=== PATIENT | female | born 1970 | race African-American/Black ===

== ENCOUNTER 2020-08-24 16:10 | Outpatient (REF) | payer MEDICARE, MEDICAID, SELFPAY | END 2020-08-24 16:11 | disposition home or self-care (01) | LOC: HO.HAP 16:10 | PROVIDERS: Visit Provider Internal Medicine | DX: Z46.1 Encounter for fitting and adjustment of hearing aid (principal) | CPT/HCPCS: V5266 ==

== ENCOUNTER 2020-10-07 15:20 | Outpatient (REF) | payer MEDICARE, MEDICAID, SELFPAY | END 2020-10-07 15:21 | disposition home or self-care (01) | LOC: HO.HAP 15:20 | PROVIDERS: Visit Provider Internal Medicine | DX: Z46.1 Encounter for fitting and adjustment of hearing aid (principal); H90.41 Sensorineural hearing loss, unilateral, right ear, with unrestricted hearing on the contralateral side | CPT/HCPCS: 92592 ==

== ENCOUNTER 2021-04-01 10:17 | Outpatient (REF) | payer MEDICARE, MEDICAID, SELFPAY ==
--- NOTE | 2021-04-01 16:18 | MHC.AU.AHA ---
Adult Audiological Evaluation Date of Visit: 04/01/21 Reason for Appointment: Audiological evaluation due to concern for decreased hearing. Ms. Quispe has a known sensorineural hearing loss in her right ear and uses a hearing aid in her right ear. Hearing in her left ear has had normal hearing on past evaluations. She notes that she often feels like people are mumbling, and has a hard time hearing voice on FaceTime. She has been struggling with migraines and her doctor has changed her migraine medications several times to find something that works. [place] [facility] [place] Mild sensorineural hearing loss from 250-2000 Hz, rising to normal hearing 0832-2401 Hz in the right ear. Normal hearing in the left ear. Medical History: Medical History: Dizziness or Unsteadiness, Migraines Medical History: Microcytic anemia, thalassemia, lymphedema, kidney problems, chronic pain Allergies: Patient reports she is allergic to migraine medications Medication List: Topamax, Morphine, Propranolol Hearing Instrument History- Right Ear: Green Energy Marketing Analyst: Rhapso Model: Playmysong [id number] Serial Number: [id number] Battery Size: 312 Repair Warranty: 12/29/2022 Loss and Damage Warranty: 12/29/2022 Dispensed By: [facility] Date of Fittin10/14/2019 Otoscopy: Right Ear: Unremarkable Left Ear: Unremarkable Tympanometry: Tympanometry performed due to: To assess integrity of the middle ear system Right Ear: Normal Middle Ear System (Type A) Left Ear: Normal Middle Ear System (Type A) Hearing Evaluation: Transducer(s) Used: Insert Earphones, Bone Conduction Method: Conventional Audiometry Stimuli Used: Pure Tones Right Ear: Description of Hearing: Mild sensorineural hearing loss from 250-4000 Hz, rising to normal hearing at 8000 Hz. Left Ear: Description of Hearing: Normal hearing from 250-8000 Hz. Speech Recognition Threshold (SRT): Method Used: Monitored Live Voice Stimuli Used: Spondee Words Right Ear: 20 dBHL Left Ear: 5 dBHL Word Discrimination: Method: Recorded Lists Word Lists Used: NU-6 Right Ear: 100% at 60 dBHL Left Ear: 100% at 50 dBHL Comparison: Compared to the most recent evaluation: Hearing is stable. Recommendations: Audiological re-evaluation in one year. Hearing aid maintenance performed today. Hearing aid(s) reprogrammed with updated test results. Diagnosis: Primary Diagnosis: H90.41 SNHL Unilateral Right Ear, W/Unrestricted Contralateral Hearing Services Performed: Comprehensive Audiological Evaluation (CPT 27703) Tympanometry (CPT 39261) Signature: Provider: Colleen Rosales, CCC-A
== END 2021-04-01 10:18 | disposition home or self-care (01) ==
LOC: HO.SH 10:17
PROVIDERS: Visit Provider Internal Medicine
DX: Z46.1 Encounter for fitting and adjustment of hearing aid (principal); H90.41 Sensorineural hearing loss, unilateral, right ear, with unrestricted hearing on the contralateral side
CPT/HCPCS: 92557; 92567; 92592

== ENCOUNTER 2021-11-07 10:24 | Outpatient (REF) | payer MEDICARE, MEDICAID, SELFPAY | END 2021-11-07 10:25 | disposition home or self-care (01) | LOC: HO.HAP 10:24 | PROVIDERS: Visit Provider Internal Medicine | DX: Z46.1 Encounter for fitting and adjustment of hearing aid (principal); H90.41 Sensorineural hearing loss, unilateral, right ear, with unrestricted hearing on the contralateral side | CPT/HCPCS: V5266 ==

== ENCOUNTER 2023-04-18 13:19 | Outpatient (REF) | payer MEDICARE, MEDICAID, SELFPAY | END 2023-04-18 13:20 | disposition home or self-care (01) | LOC: HO.HAP 13:19 | PROVIDERS: Visit Provider Internal Medicine | DX: Z46.1 Encounter for fitting and adjustment of hearing aid (principal); H90.41 Sensorineural hearing loss, unilateral, right ear, with unrestricted hearing on the contralateral side | CPT/HCPCS: 92592; 99499; V5266 ==

== ENCOUNTER 2023-04-18 13:52 | Outpatient (REF) | payer SELFPAY | END 2023-04-18 13:53 | disposition home or self-care (01) | LOC: HO.HAP 13:52 | PROVIDERS: Visit Provider Internal Medicine | DX: Z46.1 Encounter for fitting and adjustment of hearing aid (principal); H90.3 Sensorineural hearing loss, bilateral | CPT/HCPCS: V5267 ==

== ENCOUNTER 2023-05-03 12:45 | Outpatient (REF) | payer MEDICARE, MEDICAID, SELFPAY | END 2023-05-03 12:46 | disposition home or self-care (01) | LOC: HO.HAP 12:45 | PROVIDERS: Visit Provider Internal Medicine | DX: Z46.1 Encounter for fitting and adjustment of hearing aid (principal); H90.3 Sensorineural hearing loss, bilateral | CPT/HCPCS: V5266 ==

== ENCOUNTER 2023-06-07 14:00 | Outpatient (RCR) | payer MEDICARE, MEDICAID, SELFPAY ==
[2023-05-03 11:16] VITALS: BP 116/84
== END 2023-07-25 10:49 | disposition home or self-care (01) ==
LOC: HO.PT 14:00
PROVIDERS: PCP Internal Medicine; Visit Provider Psychiatry & Neurology Neurology
DX: R42 Dizziness and giddiness (principal)
CPT/HCPCS: 95992; 97112; 97162

== ENCOUNTER 2023-09-17 09:13 | Day surgery (SDC) | payer MEDICARE, MEDICAID, SELFPAY ==
--- NOTE | ~2023-09-17 | FL_ITS ---
FLUOROSCOPIC GUIDED LUMBAR PUNCTURE INDICATION: Concern for pseudotumor cerebra Risks and benefits and possible complications were discussed with the patient and the consent form was signed. Patient was placed prone on the fluoroscopy table. The back was prepped and draped in routine sterile fashion. Betadine was used as a skin antiseptic. Utilizing fluoroscopic guidance, the L3-4 interlaminar space was accessed with a 22 gauge Randal spinal needle and clear CSF fluid obtained. Opening pressure was 7 cm H2O in the left lateral decubitus position. 8 cc of fluid was sent for analysis. The needle was removed without immediate complications. Total fluoroscopy time: 0.5 min Solitary spot image obtained. DAP: 388.7 uGycm2. FL/FL guided lumbar puncture LP IMPRESSION: Successful fluoroscopic guided lumbar puncture. Normal opening pressure. This procedure was performed by Gerry Somers PA-C and supervised by Dr. Mesa.
[2023-09-17 10:21] VITALS: BMI 27.2
[2023-09-17 12:30] VITALS: BP 98/75; PULSE 79; RESP 16; TEMP 36.4; O2SAT 100
[2023-09-17 12:57] VITALS: BP 107/67; PULSE 88; RESP 16; O2SAT 100
[2023-09-17 13:15] VITALS: BP 104/63; PULSE 94; RESP 16; TEMP 36.4; O2SAT 100
[2023-09-17 13:36] LABS: CSF Appearance Clear, Colorless; CSF Tube # 2
[2023-09-17 13:48] LABS: Glucose CSF 58 mg/dL; Total Protein CSF 46.9 mg/dL (15-45)
[2023-09-17 14:33] LABS: Lymphocytes CSF 100 %
[2023-09-17 14:34] LABS: Appearance CSF CLEAR; CSF Tube # 4; Color CSF COLORLESS; Red Blood Cell CSF 4 MM*3; White Blood Cell CSF 2 MM*3
== END 2023-09-17 13:30 | disposition home or self-care (01) ==
PROVIDERS: Physician Assistant Surgical; Psychiatry & Neurology Neurology; PCP Internal Medicine; Visit Provider Psychiatry & Neurology Neurology
PROC: 009U3ZZ Drainage of Spinal Canal, Percutaneous Approach (ICD-10-PCS; CPT 62270; principal; 2023-09-17 11:00)
DX: G93.2 Benign intracranial hypertension (principal); H46.9 Unspecified optic neuritis; G43.709 Chronic migraine without aura, not intractable, without status migrainosus; R42 Dizziness and giddiness; M79.7 Fibromyalgia; H53.143 Visual discomfort, bilateral; G62.9 Polyneuropathy, unspecified; I89.0 Lymphedema, not elsewhere classified; G47.33 Obstructive sleep apnea (adult) (pediatric); J45.909 Unspecified asthma, uncomplicated; Z99.89 Dependence on other enabling machines and devices; Z79.899 Other long term (current) drug therapy; Z79.51 Long term (current) use of inhaled steroids; Z88.8 Allergy status to other drugs, medicaments and biological substances; Z88.5 Allergy status to narcotic agent; Z98.84 Bariatric surgery status
CPT/HCPCS: 62328; 82945; 84157; 87015; 87070; 87205; 89051

== ENCOUNTER → 2023-09-17 11:30 | Outpatient (BNV) | payer MEDICARE, MEDICAID, SELFPAY | PROVIDERS: PCP Internal Medicine; Visit Provider Physician Assistant Surgical | DX: G93.2 Benign intracranial hypertension (principal) | CPT/HCPCS: 62328 ==

== ENCOUNTER 2024-03-06 11:04 | Outpatient (REF) | payer MEDICARE, MEDICAID, SELFPAY | END 2024-03-06 11:05 | disposition home or self-care (01) | LOC: HO.HAP 11:04 | PROVIDERS: Visit Provider Internal Medicine | DX: Z46.1 Encounter for fitting and adjustment of hearing aid (principal); H90.41 Sensorineural hearing loss, unilateral, right ear, with unrestricted hearing on the contralateral side | CPT/HCPCS: V5266 ==

== ENCOUNTER 2024-04-22 12:43 | Outpatient (REF) | payer MEDICARE, MEDICAID, SELFPAY ==
--- NOTE | 2024-04-22 14:40 | MHC.AU.HA3 ---
Hearing Instrument Follow-Up- Binaural Date of Visit: 04/22/24 Right Ear: Make, Model, Color, Serial Number: Miesha Stone [id number] SN: [id number] Color: Graphite Wilkinson Spinning Frame Tender Repair Warranty: 12/29/2022 Spinning Frame Tender Loss and Damage Warranty: 12/29/2022 [employer] Service Plan: 10/13/2020 Battery Size: 312 Mason Helper/Slim Tube: 1M Earmold/Dome/CShell/SlimTip:Small open dome with retention tail Type of Wax Guard: Cerushield Dispensed By: [employer] Date of Fittin10/14/2019 Follow-Up Summary: Sil is here for re-evaluation (see report) and hearing aid maintenance. She states her hearing aid does not seem to be working, notes issues with batteries dying daily. Despite reporting she changed her battery yesterday, it tested as . Cleaned aid, changed wax guard and dome, ran through dehumidifier, changed battery. Listening check ok. Advised to try a new pack of batteries, and if issue continues to return to discuss next steps. Recommendations: Recommendations: Patient will call if problems persist. Diagnosis Code(s): Primary Diagnosis: H90.41 SNHL Unilateral Right Ear, W/Unrestricted Contralateral Hearing Signature: Provider: Colleen Nunez, [facility]
--- OUTSIDE RECORDS SUMMARY | 2024-04-23 21:14 | XMS_ITS ---
Author Name [facility] Organization Unknown History of Medication Use Medication Directions Dispensed Refills Start Date End Date Stat loratadine (CLARITIN) 10 MG tablet Take 10 mg by mouth daily. 12/08/2023 active pantoprazole (PROTONIX) 40 MG tablet Take 20 mg by mouth 2 (two) times a day. 12/08/2023 active albuterol (PROVENTIL HFA;VENTOLIN HFA) 108 (90 Base) MCG/ACT inhaler Inhale 1 puff into the lungs every 4 (four) hours as needed for wheezing. 12/08/2023 active buPROPion (WELLBUTRIN XL) 150 MG 24 hr tablet Take 150 mg by mouth daily. 12/08/2023 active Acetaminophen (TYLENOL PO) Take 1,000 mg by mouth daily. 12/08/2023 active oxazepam (SERAX) 15 MG capsule Take 15 mg by mouth 4 (four) times a day. 12/08/2023 active vitamin E 400 UNIT capsule Take 400 Units by mouth 2 (two) times a day. 12/08/2023 active propranolol (INDERAL LA) 80 MG 24 hr capsule Take 80 mg by mouth daily. 12/08/2023 aborted cyanocobalamin (VITAMIN B12) 1000 MCG/ML injection Inject 1,000 mcg into the muscle every 3 (three) months. 12/08/2023 active naloxone (NARCAN) 0.4 MG/ML injection Inject 0.4 mg into the vein as needed. 12/08/2023 active meclizine (ANTIVERT) 25 MG tablet Take 25 mg by mouth 4 (four) times a day as needed. 12/08/2023 active furosemide (LASIX) 20 MG tablet Take 20 mg by mouth 3 (three) times a week. 12/08/2023 active cholecalciferol (VITAMIN D3) 1000 UNITS tablet Take 1,000 Units by mouth 4 (four) times a day. 12/08/2023 active vitamin C (ASCORBIC ACID) 500 MG tablet Take 500 mg by mouth 2 (two) times a day. 12/08/2023 active fluticasone (FLONASE) 50 MCG/ACT nasal spray spray/apply 1 spray in each nostril 2 (two) times a day. 12/08/2023 active Morphine Sulfate ER (MS CONTIN) 30 MG TBCR Take 30 mg by mouth every 4 (four) hours as needed. 12/08/2023 active vitamin A capsule 56366 units Take 10,000 Units by mouth 2 (two) times a day. 12/08/2023 active docusate sodium (COLACE) 100 MG capsule Take 100 mg by mouth 2 (two) times a day. 12/08/2023 active Ubrogepant (Ubrelvy) 50 MG TABS Take 50 mg by mouth 2 (two) times a day as needed. 12/08/2023 active vitamin B-1 (THIAMINE) 100 MG tablet Take 100 mg by mouth 2 (two) times a day. 12/08/2023 active B Complex-Folic Acid (B COMPLEX-VITAMIN B12 PO) Take by mouth 2 (two) times a day. 12/08/2023 active Magnesium Oxide 400 (241.3 Mg) MG TABS tablet Take 250 mg by mouth 2 (two) times a day. 12/08/2023 active spironolactone (ALDACTONE) tablet 25 mg Take 50 mg by mouth daily. 12/08/2023 active buPROPion (WELLBUTRIN XL) 300 MG 24 hr tablet Take 300 mg by mouth daily. 12/08/2023 active EPINEPHRINE IJ Inject 0.3 Units as directed. 12/08/2023 active topiramate (TOPAMAX) 25 MG tablet Take 2 tablets (50 mg total) by mouth 2 (two) times a day for 7 days, THEN 1 tablet (25 mg total) 2 (two) times a day for 7 days, THEN 1 tablet (25 mg total) daily for 7 days. 12/08/2023 active ipratropium-albuterol (DUO-NEB) 0.5-2.5 mg/mL nebulizer Inhale 3 mL into the lungs. 12/08/2023 active Problems Problem Status Onset Date Problem Type Date of Resolution Source Vitamin D deficiency, unspecified active EncounterDiagnosisAct CTTHNE MG Migraines active EncounterDiagnosisAct CTTHNEMG Anemia active 2016-11-13 ProblemAct CTTHNEMG
--- OUTSIDE RECORDS SUMMARY | 2024-04-23 21:14 | XMS_ITS | Continuity of Care Document ---
Author Organization [facility] [address] [place] [address] Phone [phone] Care Team Providers Care Superintendent Drilling And Production Name Role Phone Kala López M.D. Care Team Information Rec eiver [phone] Problems Active Problems Provider Date Non-toxic multinodular goiter Kala man M.D. Onset: 07/26/2022 Osteoporosis Kala Branch M.D. Ons et: 07/26/2022 Hyperparathyroidism Kala Branch M.D. Onset: 07/26/2022 Migraine Kala Branch M.D. Ons et: 07/26/2022 Essential hypertension Jesus Forte Onset: 07/26/2022 Osteoarthritis Kala Branch M.D. Ons et: 07/26/2022 Obstructive sleep apnea syndrome Kala Uribe M.D. Onset: 07/26/2022 Asthma Kala Branch M.D. Ons et: 07/26/2022 Chronic anemia Kala Branch M.D. Ons et: 07/26/2022 Thalassemia Kala Branch M.D. Ons et: 07/26/2022 Pulmonary embolism Kala Branch M.D. Onset: 07/26/2022 Vertigo Kala Branch M.D. Ons et: 07/26/2022 Obesity Kala Branch M.D. Ons et: 07/26/2022 Spinal stenosis of lumbar region Kala Uribe M.D. Onset: 07/26/2022 Clostridium difficile colitis Kala man M.D. Onset: 07/26/2022 Acquired lymphedema of lower extremity Kala Branch M.D. Onset: 07/26/2022 Cobalamin deficiency Donnell Forte Onset: 07/26/2022 Gastroesophageal reflux disease Kala Rose M.D. 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 Work Status Disabled ETOH Use Rarely consumes alcohol Tobacco Use Start: Unknown Patient has never smoked Allergies and adverse reactions Active Allergies Criticality Reaction Severity Comments Date Aspirin Unable to assess criticality 07/26/2022 Penicillin Unable to assess criticality 07/26/2022 Motrin Unable to assess criticality 07/26/2022 Heparin Unable to assess criticality 07/26/2022 Percocet Unable to assess criticality 07/26/2022 Lidocaine Unable to assess criticality 07/26/2022 Iron Dextran Unable to assess criticality 07/26/2022 Bactrim Unable to assess criticality 07/26/2022 Zofran Unable to assess criticality 07/26/2022 Scopolamine Unable to assess criticality 07/26/2022 Dilaudid Unable to assess criticality 07/26/2022 Marinol Unable to assess criticality 07/26/2022 Lyrica Unable to assess criticality 07/26/2022 Klonopin Unable to assess criticality 07/26/2022 Lamictal Unable to assess criticality 07/26/2022 Neosporin Unable to assess criticality 07/26/2022 Librium Unable to assess criticality 07/26/2022 Cymbalta Unable to assess criticality 07/26/2022 Elavil Unable to assess criticality 07/26/2022 Latex Unable to assess criticality 07/26/2022 Asmanex Unable to assess criticality 07/26/2022 Vioxx Unable to assess criticality 07/26/2022 Anbesol Unable to assess criticality 07/26/2022 Nortriptyline Unable to assess criticality 07/26/2022 Medications Active Medications SIG Qnty Indications Order ing Provider Date Ipratropium Bromide0.03% Solution 1 spray each nostril three times a day 1ml Kala Branch M.D. 07/26/2022 Tylenol Extra [id number] Tablets 2 by mouth twice daily as needed Unknown Mrtaienhau06mm Tablets DR take twice daily Unknown Vitamin L951jze (1000 Ut) Capsules 4 by mouth every day 100caps Kala Branch M.D. Calcium Citrate Chewy Cahy626-95.5mg-mcg Chewtabs 1 by mouth twice a day Kala Branch M.D. Vitamin C500mg Tablets 1 by mouth 3 times daily Unknown Iijozvjy03pq Capsules 1 bid Unknown Ulsz597(50Zn) mg Capsules 1 qd Unknown Lidocaine-Prilocaine2. 5-2.5% Cream prn Unknown Hair Skin And Nails FormulaTablets 1 by mouth every day Unknown Nxqdcmili956ua Tablets 1 by mouth twice daily Unknown Betamethasone Dipropionate0.05% Cream apply twice daily to affected area as needed Unknown Rozdihrbcz341cp Tablets Take 1 tablet 2 times daily Unknown Duloxetine MFN69hn Caps Part take 1 capsule by mouth twice daily Unknown Duloxetine NQT24km Caps Part Take 1 by mouth every day Unknown Ptddf67310-67154Uyfc Caps DR Umanzor Take 2 capsules by mouth four times daily Unknown Ventolin OSZ087(90Base) mcg/Act Aerosol Use as directed every 4 to 6 hours Kala López M.D. Azelastine HCL (Nasal)0.1% Solution 1 spray to each nostril twice daily Carol Mayberry MD Fluticasone Ztmamfletl59ysx/Act Suspension Two sprays to each nostril twice daily Kala López M.D. Meclizine SDJ90lw Tablets Take 1 tablet four times daily Unknown Betamethasone Valerate0.1% Cream Use daily up to four times Kala López M.D. Hutqszwja63-3.5mcg/Act Aerosol 2 puffs twice daily Kala López M.D. Vital Signs Date Vital Result Comment 07/31/2023 9:04am BP Systolic 100 mmHg BP Diastolic 70 mmHg Heart Rate 96 /min Height 62.5 inches 5'2.50 Weight 150.38 lb BMI (Body Mass Index) 27.1 kg/m2 Results Test Acquired Date Facility Test Result H/L Range Note Creatinine 07/31/2023 [facility] Creatinine 0.71 mg/dL 0.57-1.00 eGFR 101 mL/min/1.73 >59 Laboratory test finding 07/31/2023 [facility] Calcium 9.7 mg/dL 8.7-10.2 Albumin 4.2 g/dL 3.8-4.9 N-Telopeptide, Urine 07/31/2023 [facility] N-Telopeptide 2092 nmolBCE Not Estab. Creatinine, Urine 129.2 mg/dL Not Estab. N-Telo/Creat. Ratio 183 nMBCE/mMCr High 0-89 Interpretive Guide: See Comment: 1 Laboratory test finding 08/14/2022 [facility] PTH, Intact 72 pg/mL High (15-65) Calcium 9.6 mg/dL (8.6-10.5 ) Albumin 4.6 GM/DL (3.4-4.8) TSH 1.10 uIU/mL (0.4-4.2) 25Oh Vitamin D 65.3 NG/ML High (20-50 ) Laboratory test finding 07/26/2022 [facility] TSH With Reflex To FT4 1.50 uIU/mL (0.4-4.2) PTH, Intact 44 pg/mL (15-65) Calcium 9.8 mg/dL (8.6-10.5 ) 25Oh Vitamin D 60.2 NG/ML High (20-50 ) Albumin 4.3 GM/DL (3.4-4.8) Laboratory test finding 04/13/2022 [facility] TSH <pending> Calcium <pending> Albumin <pending> PTH, Intact <pending> 25Oh Vitamin D <pending> 1 The N-telopeptide an d Creatinine are used to calculate the N-telo/Creat. Ratio which is referred to as NTx . Suggested guidelines for the clinical use of NTx are as follows: 1. Menopausal Women not on Hormone Replacement Therapy (HRT): Women with a baseline NTx value >38 are at significant risk for a decrease in bone mineral density (BMD) after 1 year compared to women on HRT. The probability of a decline in BMD increases with NTx value as follows: (1): Baseline NTx Probability of Decrease in BMD 18- 38 1.4 p=0.28 38- 51 2.5 p=0.03 51- 67 3.8 p=0.0006 67-188 17.3 p=0.0001 2. Menopausal Women Receiving Antiresorptive Therapy: The probability that treatment is effective after three months is increased when the measured NTx value is <or=38 nM BCE/mM ART CLASS MODEL, or NTx has decreased >or=30% from baseline.[1] 3. Patients with Paget's Disease of Bone: The probability that treatment is effective after one month is increased when the measured NTx value is within the reference range, or NTx has decreased >or=30% from baseline.[2] 1. Oanh CH, Quintanilla NH, Rocky GS, et al. Am J Med, 102:29-37,1997. (1):M757, 1996. 2. Bone H, Krysten Centeno, et al. J Bone Min Res.11(1):M757,1996 Procedures Date Code Description Status 07/31/2023 40292 Collection Of Venous Blood B y Venipuncture Completed 07/26/2022 21862 Collection Of Venous Blood B y Venipuncture Completed Medical Devices Description No Information Available Encounters Type Date Location Provider Dx Diagnosis Office Visit 07/31/2023 9:00a Main Office Kala Branch M.D. E04.2 Nontoxic multinodular goiter E21.3 Hyperparathyroidism, unspecified M81.0 Age-related osteopor osis w/o current pathological fracture Assessments Date Code Description Provider 07/31/2023 E04.2 Nontoxic multinodular goiter Kala Branch M.D. 07/31/2023 E21.3 Hyperparathyroidism, unspeci fied Kala Branch M.D. 07/31/2023 M81.0 Age-related oste oporosis without current pathological fracture Kala Branch M.D. Plan of Treatment No Information Available Functional Status Description No Information Available Mental Status Description No Information Available Referrals Description No Information Available
== END 2024-04-22 12:44 | disposition home or self-care (01) ==
LOC: HO.SH 12:43
PROVIDERS: Visit Provider Internal Medicine
DX: Z01.118 Encounter for examination of ears and hearing with other abnormal findings (principal); H90.41 Sensorineural hearing loss, unilateral, right ear, with unrestricted hearing on the contralateral side
CPT/HCPCS: 92552; 92556; 92567; 92592; 99499

== ENCOUNTER 2024-08-26 15:07 | Outpatient (REF) | payer MEDICARE, MEDICAID, SELFPAY ==
--- OUTSIDE RECORDS SUMMARY | 2024-08-26 18:26 | XMS_ITS ---
Author Organization [facility] Care Team Providers Care Machining Supervisor Name Role Phone Jenifer Otero Unavailable Unavailable Michelle Sanders Unavailable Unavailable Tres Mishra Unavailable Unavailable Silke Pan Unavailable Unavailable Ella Linares Unavailable Unavailable Allergies and adverse reactions Code CodeSystem Substance Reaction Severity StartDate Concern Status Vioxx Moderate 02/04/2016 active Singulair Anaphylaxis (code- 04581988, SNOMED CT) Severe 02/04/2016 active 9601 RXNORM Scopolamine Unknown 01/18/2016 active Percogesic Lung finding (code- 287275543, SNOMED CT) Severe 02/04/2016 active 7984 RXNORM Penicillin Mild 02/04/2016 active 7531 RXNORM Nortriptyline Unknown 01/18/2016 active NEOSPORIN TOPICA L OINTMENT Unknown 01/18/2016 active Motrin Unknown 01/18/2016 active Marinol Unknown 01/18/2016 active Lyrica Unknown 01/18/2016 active 6387 RXNORM Lidocaine Unknown 01/18/2016 active Librium Mild 02/04/2016 active Lamictal Lung finding (code- 520650839, SNOMED CT) Moderate 02/04/2016 active Klonopin Moderate 02/04/2016 active 5992 RXNORM Iron Dextran Unknown 01/18/2016 active 304569 RXNORM Heparin Unknown 01/18/2016 active Cymbalta Unknown 01/18/2016 active Bactrim Unknown 01/18/2016 active 1191 RXNORM Aspirin Unknown 01/18/2016 active ASMANEX TWISTHALER Unknown 01/18/2016 ac tive ANBESOL LIQUID Unknown 01/18/2016 active Care Team Name Role Address Phone Organization Dates Tres Mishra PCP [address], [place], [address], [facility] (Office): [facility] 01/18/2016 - 05/29/2017 Jenifer Otero Attending Physician [address] [place] [address], [facility] (Office): [facility] 01/18/2016 - 05/29/2017 Michelle Sanders Attending Physician [address] [place] [address], [id number], [facility] (Office): [facility] 01/18/2016 - 05/29/2017 Silke Pan Attending Physician [address] [place] [address], [id number], [facility] (Office): [facility] 01/18/2016 - 05/29/2017 Ella Linares Attending Physician [address] [place] [address], [id number], [facility] (Office): [facility] 01/18/2016 - 05/29/2017 Immunizations Immunization Status Vaccine Details Vaccine Code CodeSystem Date Notes Influenza completed Influenza, split virus, trivalent, injectable, contains preservative lotNumber: [id number] expiry: 11/10/2017 Mfg: Seqirus Given 0.5 ml Left Deltoid intramuscularly 141 CVX created date: 7 consent date: 7 administe red date: 7 Educated by Juan Manuel Mora LPN on 03/17/2017 Influenza completed Influenza, split virus, trivalent, injectable, contains preservative lotNumber: [id number] expiry: 10/11/2016 Mfg: Seqirus Given 0.5 ml Left Deltoid intramuscularly 141 CVX created date: 6 consent date: 6 administe red date: 6 Educated by [email or web address] on 03/02/2016 Pneumococcal Polysaccharide Vaccine (PPSV23) completed pneumococcal polysaccharide vaccine, 23 valent 33 CVX created date: 6 administe red date: 5 Educated by dbarrows on 05/02/2016 had LOSS PREVENTION CONSULTANT Mental Status Section Date Assessment Total Score Description 05/29/2017 BIMS 15 cognitively int act CAM 0 No delirium ind icated PHQ-9 00 03/21/2017 BIMS 15 cognitively int act CAM 0 No delirium ind icated PHQ-9 00 Problems Problem # Description Date of onset Resolved Date Code CodeSystem Concern Status 1 LOW BACK PAIN 02/20/[address] act vero 2 RADICULOPATHY, CERVICAL REGION 02/20/[address] active 3 OTHER INJURY OF MUSCLE(S) AND TENDON(S) OF THE ROTATOR CUFF OF LEFT SHOULDER, SEQUELA 02/15/[address] active 4 PAIN IN LEFT SHOULDER 01/02/[address] active 5 PAIN IN LEFT HAND 09/23/[address] active 6 ENCOUNTER FOR SURGICAL AFTERCARE FOLLOWING SURGERY ON THE DIGESTIVE SYSTEM 09/22/2016 03/14/[address] completed 7 OTHER SPECIFIED POSTPROCEDURAL STATES 09/22/2016 03/14/[address] completed 8 PERSONAL HISTORY OF OTHER DISEASES OF THE DIGESTIVE SYSTEM 09/22/[address] active 9 MUSCLE WEAKNESS (GENERALIZED) 07/30/[address] active 10 GASTRO-ESOPHAGEAL REFLUX DISEASE WITH ESOPHAGITIS 06/09/2016 03/14/[address] completed 11 ADULT FAILURE TO THRIVE 01/18/2016 03/14/[address] completed 12 ANXIETY DISORDER, UNSPECIFIED 01/18/[address] active 13 COGNITIVE COMMUNICATION DEFICIT 01/18/[address] active 14 DIFFICULTY IN WALKING, NOT ELSEWHERE CLASSIFIED 01/18/[address] active 15 DYSPHAGIA, ORAL PHASE 01/18/[address] active 16 HISTORY OF FALLING 01/18/[address] active 17 MAJOR DEPRESSIVE DISORDER, SINGLE EPISODE, UNSPECIFIED 01/18/[address] active 18 NAUSEA WITH VOMITING, UNSPECIFIED 01/18/2016 03/14/[address] completed 19 OTHER CHRONIC PAIN 01/18/[address] active 20 OTHER LACK OF COORDINATION 01/18/[address] active 21 OTHER MALAISE 01/18/[address] act vero 22 PAIN IN LEFT LEG 01/18/[address] active 23 RADICULOPATHY, LUMBOSACRAL REGION 01/18/[address] active 24 UNSPECIFIED ABDOMINAL PAIN 01/18/[address] active 25 UNSPECIFIED ASTHMA, UNCOMPLICATED 01/18/[address] active 26 UNSPECIFIED SEVERE PROTEIN-CALORIE MALNUTRITION 01/18/2016 03/14/[address] completed Reason for Referral No Reasons for Referral Entered Social History Social History Observation Description Start Date End Date Code Code System Current Smoking Status Tobacco smoking consumption unknown 804958839 SNOMED CT Sex Assigned At Female 1970 55162-[address] [facility] Vital Signs Code Code System Vitals Name Values and Units Timing Information 14986-[address] [facility] Weight Mrbtu=801.9 Units=Lbs 09/2017 8302-[address] [facility] Height Value=62.0 Units=Inches 03/28/2017 9279-[address] [facility] Respiratory Rate Value=18.0 Units=/m in 01/31/2017 8462-[address] [facility] Blood Pressure-Diastolic Value=72 Un its=mmHg 01/31/2017 8480-[address] [facility] Blood Pressure-Systolic Qzjaf=621 Un its=mmHg 01/31/2017 8310-[address] [facility] Body Temperature Value=96.8 Units=?? F 01/31/2017 8867-[address] [facility] Heart rate Value=78.0 Units=/min 62807-[address] [facility] O2 % BldC Oximetry Value=96.0 Units= % 01/31/2017 24728-[address] [facility] Pain Level Value=4.0 10/03/2016
--- OUTSIDE RECORDS SUMMARY | 2024-08-26 18:26 | XMS_ITS | Clinical Summary ---
Author Organization [facility] Address [address] [place] [address] Care Team Providers Care Tours Captain Name Role Phone Kala López MD Primary Care Provider [phone] Allergies Active Allergy Reactions Criticality Noted Date Comments Aspirin 11/06/2016 Sulfamethoxazole-Trimethoprim 2016 Clonazepam 11/06/2016 Duloxetine Hcl 11/06/2016 Lidocaine 11/06/2016 Diphenoxylate 11/06/2016 Pregabalin 11/06/2016 Ibuprofen 11/06/2016 Benzalkonium Chloride 11/06/2016 Nortriptyline 11/06/2016 Penicillins 11/06/2016 Oxycodone-Acetaminophen 11/06/2016 Scopolamine 11/06/2016 Montelukast 11/06/2016 Rofecoxib 11/06/2016 Medications Medication Sig Dispensed Refills Start Date End Date Status Morphine Sulfate ER (MS CONTIN) 30 MG TBCR Take 30 mg by mouth every 4 (four) hours as needed. 0 Active spironolactone (ALDACTONE) tablet 25 mg Take 50 mg by mouth daily. 0 Active pantoprazole (PROTONIX) 40 MG tabletIndications:DR tablet Take 20 mg by mouth 2 (two) times a day. 0 Active Acetaminophen (TYLENOL PO) Take 1,000 mg by mouth daily. 0 Active oxazepam (SERAX) 15 MG capsule Take 15 mg by mouth 4 (four) times a day. 0 Active FOLIC ACID PO Take by mouth 2 (two) times a day. 0 Active cholecalciferol (VITAMIN D3) 1000 UNITS tablet Take 1,000 Units by mouth 4 (four) times a day. 0 Active Minxbxb-Xajyppzrg-Idr munson D (CALCIUM 500 PO) Take by mouth. 0 Active docusate sodium (COLACE) 100 MG capsule Take 100 mg by mouth 2 (two) times a day. 0 Active ipratropium-albuterol (DUO-NEB) 0.5-2.5 mg/mL nebulizer Inhale 3 mL into the lungs. 0 Active cyanocobalamin (VITAMIN B12) 1000 MCG/ML injection Inject 1,000 mcg into the muscle every 3 (three) months. 0 Active meclizine (ANTIVERT) 25 MG tablet Take 25 mg by mouth 4 (four) times a day as needed. 0 Active vitamin A capsule 11221 units Take 10,000 Units by mouth 2 (two) times a day. 0 Active vitamin B-1 (THIAMINE) 100 MG tablet Take 100 mg by mouth 2 (two) times a day. 0 Active vitamin E 400 UNIT capsule Take 400 Units by mouth 2 (two) times a day. 0 Active EPINEPHRINE IJ Inject 0.3 Units as directed. 0 Active Magnesium Oxide 400 (241.3 Mg) MG TABS tablet Take 250 mg by mouth 2 (two) times a day. 0 Active B Complex-Folic Acid (B COMPLEX-VITAMIN B12 PO) Take by mouth 2 (two) times a day. 0 Active loratadine (CLARITIN) 10 MG tablet Take 10 mg by mouth daily. 0 Active fluticasone (FLONASE) 50 MCG/ACT nasal spray spray/apply 1 spray in each nostril 2 (two) times a day. 0 Active Pediatric Multi Vit-Extra C-FA (CENTRUM JR/EXTRA C PO) Take by mouth 2 (two) times a day. 0 Active furosemide (LASIX) 20 MG tablet Take 20 mg by mouth 3 (three) times a week. 0 Active albuterol (PROVENTIL HFA;VENTOLIN HFA) 108 (90 Base) MCG/ACT inhaler Inhale 1 puff into the lungs every 4 (four) hours as needed for wheezing. 0 Active naloxone (NARCAN) 0.4 MG/ML injection Inject 0.4 mg into the vein as needed. 0 Active Probiotic Product (PROBIOTIC DAILY PO) Take by mouth 4 (four) times a day. 0 Active Nutritional Supplements (ENSURE HIGH PROTEIN) LIQD Take by mouth 3 (three) times a day. 0 Active Ubrogepant (Ubrelvy) 50 MG TABS Take 50 mg by mouth 2 (two) times a day as needed. 16 tablet 3 12/03/2023 Active galcanezumab-gnlm (Emgality) 120 MG/ML injection Inject 1 mL (120 mg total) under the skin every 30 (thirty) days. 1 mL 3 01/03/2024 Active azelastine (ASTELIN) 0.1 % nasal spray 0 01/19/2024 Active betamethasone valerate (VALISONE) 0.1 % cream 0 01/19/2024 Active Symbicort 80-4.5 MCG/ACT inhaler 0 01/19/2024 Active cetirizine (ZyrTEC) 10 MG tablet Take 1 tablet (10 mg total) by mouth. 0 02/05/2018 Active diphenoxylate-atropin e (Lomotil) 2.5-0.025 MG per tablet Take by mouth. 0 07/17/2023 Active DULoxetine (CYMBALTA) DR capsule 20 mg 0 01/19/2024 Active DULoxetine (CYMBALTA) DR capsule 60 mg 0 01/19/2024 Active Multiple Vitamins-Minerals (Hair Skin and Nails Formula) TABS Take by mouth. 0 Active timolol (TIMOPTIC) 0.5 % ophthalmic solution 0 12/05/2023 Active baclofen (LIORESAL) 10 MG tablet 1-2 tablets at night 60 tablet 3 02/07/2024 Active Active Problems Problem Noted Date Diagnosed Date Anemia 11/13/2016 Family History Medical History Relation Name Comments Cancer Cousin Multiple sclerosis Mother Multiple sclerosis Sister Relation Name Status Comments Cousin Mother Sister Social History Tobacco Use Types Packs/Day Years Used Date Smoking Tobacco: Never Smokeless Tobacco: Never Tobacco Cessation:Counseling Given: Not Answered Alcohol Use Standard Drinks/Week Comments No 0 (1 standard drink = 0.6 oz pur e alcohol) occasionally Sex and Gender Information Value Date Recorded Sex Assigned at Not on file Gender Identity Not on file Sexual Orientation Not on file Job Start Date Occupation Industry Not on file Not on file Not on file Last Filed Vital Signs Vital Sign Reading Time Taken Comments Blood Pressure 116/76 02/07/2024 10:40 AM EDT Pulse 93 02/07/2024 10:40 AM EDT Temperature 36.1 ??C (97 ??F) 02/07/2024 10:40 AM EDT Respiratory Rate - - Oxygen Saturation 100% 01/03/2024 8:18 AM EDT Inhaled Oxygen Concentration - - Weight 73 kg (161 lb) 01/03/2024 8:18 AM EDT Height 157.5 cm (5' 2 ) 01/03/2024 8:18 AM EDT Body Mass Index 29.45 01/03/2024 8:18 AM EDT Plan of Treatment Health Maintenance Due Date Last Done Comments Hepatitis B Vaccines (1 of 3 - 3-dose series) 1969 Hepatitis C Screening 1969 Depression Screening 1981 BMI Counseling 1987 Preventative Health Evaluation 1987 Cervical Cancer Screening (Pap Smear) 1990 Colon Cancer Screening (Colonoscopy) 2014 Breast Cancer Screening (Mammogram) 2019 Shingrix-Zoster Vaccine (1 of 2) 2019 COVID-19 Vaccine ( season) 2024 10/25/2021, 07/29/2020, 07/08/2020 Influenza Vaccine (#1) 2024 , 03/01/2021, 03/27/2019, Additional history exists DTap / Tdap / Td (3 - Td or Tdap) 09/28/2025 09/29/2015, 04/16/2007 Pneumococcal Vaccine Aged Out 12/31/2015, 02/11/2015, 02/11/2015, Additional history exists No longer eligible based on patient's age to complete this topic RSV Ped < 20 months Aged Out No longe r eligible based on patient's age to complete this topic Care Teams Tours Captain Relationship Specialty Start Date End Date Kala López MD [address] [place] [address] PCP - General Internal Medicine 11/04/16
--- OUTSIDE RECORDS SUMMARY | 2024-08-26 18:26 | XMS_ITS | Clinical Summary ---
Author Organization [address] [facility] Address [address] [place] [address] Phone Care Team Providers Care Senior Operations Analyst Name Role Phone Kala López MD Primary Care Provider [phone]- [phone] Allergies Active Allergy Reactions Criticality Noted Date Comments Alum-Mag Hydroxide-Simeth Rash 05/15/2024 Amitriptyline Unknown 05/15/2024 Aspirin Anaphylaxis High 03/18/2010 Benzalkonium Chloride 11/06/2016 Benzocaine-Phenol Swelling 01/11/2011 JAW AND TONGUE SWELLING Camphor-Menthol Skin Problems,Other 08/14/2022 Clonazepam Other,Swelling Medium 01/28/2010 FACIAL DROP-SLURRED SPEECH Diphenoxylate 11/06/2016 Doxycycline 08/13/2023 Dronabinol Amnesia,Other 08/17/2014 Other Reaction(s): slurred speech Memory loss Duloxetine Other 01/18/2016 Duloxetine Hcl 11/06/2016 Heparin Anaphylaxis,Blood Issues High 01/28/2010 RAPID IRREG HEARTBEAT Hydromorphone 08/14/2022 Other Reaction(s): trigemy brigrmy episodes Other reaction(s): trigemy brigrmy episodes Ibuprofen Hives,Other 01/18/2016 Iron Dextran Anaphylaxis High 01/28/2010 Other Reaction(s): coded x3 HEART ??STOPPED ??X ??2 Lamotrigine Shortness of breath,Other,Unknow n High 01/28/2010 SLURR SPEECH Other reaction(s): Pulmonary reactions Other Reaction(s): Pulmonary reactions Latex Hives,Other 03/18/2010 Chlordiazepoxide Hcl 05/15/2024 Lidocaine 01/28/2010 ANAPHALAX SHOCK SM RASH Maalox Max Quick Dissolve 05/15/2024 Montelukast Anaphylaxis,Pain,Ot her,Speech Problem High 01/28/2010 CHEST DISCOMFORT Neomycin-Polymyxin B Gu Rash 12/06/2012 Nortriptyline 07/27/2010 Causes chest pain Ondansetron 08/14/2022 Other Reaction(s): trigemy brigemy episodes Other reaction(s): trigemy brigemy episodes Ondansetron Hcl 05/15/2024 Oxycodone-Acetaminophen Hives 01/28/2010 Penicillins Hives 01/28/2010 THROAT CLOSING Pregabalin 01/28/2010 THROAT SWELLING Rofecoxib Rash,Hives Medium 01/28/2010 Scopolamine Other 03/18/2010 Facial pain and stroke like symptoms Sulfamethoxazole-Trimetho prim Hives,Other 01/28/2010 STOMACH ??PAIN ??DIARRHEA Other reaction(s): hives Medications ACETAMINOPHEN ORAL Take 1,000 mg by mouth daily. Active albuterol HFA (PROAIR HFA ; PROVENTIL HFA ; VENTOLIN HFA) 90 mcg/actuation inhaler Inhale 1 puff into the lungs every 4 (four) hours as needed for wheezing. Active vitamin B complex (B COMPLEX-VITAMIN B12 ORAL) Take by mouth 2 (two) times a day. Active calcium carbonate (CALCIUM 500 ORAL) Take by mouth. Activ e cholecalciferol (VITAMIN D-3) 25 mcg (1,000 unit) tablet Take 1,000 Units by mouth 4 (four) times a day. Active cyanocobalamin (VITAMIN B-12) 1,000 mcg/mL injection Inject 1,000 mcg into the muscle every 3 (three) months. Active docusate sodium (COLACE) 100 mg capsule Take 100 mg by mouth 2 (two) times a day. Active EPINEPHRINE INJ Inject 0.3 Units as directed. Active fluticasone propionate (FLONASE) 50 mcg/actuation nasal spray spray/apply 1 spray in each nostril 2 (two) times a day. Active FOLIC ACID ORAL Take by mouth 2 (two) times a day. Active furosemide (LASIX) 20 mg tablet Take 20 mg by mouth 3 (three) times a week. 6 Active ipratropium-albu teroL (DUONEB) 0.5-2.5 mg/3 mL nebulizer solution Inhale 3 mL into the lungs. Active magnesium oxide (MagOx) 400 mg (241.3 elemental magnesium) tablet Take 250 mg by mouth 2 (two) times a day. Active naloxone 0.4 mg/mL injection Inject 0.4 mg into the vein as needed. Active nutren 2.0 liquid Take by mouth 3 (three) times a day. Active oxazepam (SERAX) 15 mg capsule Take 15 mg by mouth 4 (four) times a day. Active Lactobacillus acidophilus (PROBIOTIC ORAL) Take by mouth 4 (four) times a day. Active ubrogepant (UBRELVY) 50 mg tablet Take 50 mg by mouth 2 (two) times a day as needed Active vitamin A 3,000 mcg (10,000 unit) capsule Take 10,000 Units by mouth 2 (two) times a day. Active thiamine 100 mg tablet Take 100 mg by mouth 2 (two) times a day. Active ascorbic acid (VITAMIN C) 500 mg tablet Take 500 mg by mouth 2 times daily. Active VITAMIN E-400 ORAL Take 400 Units by mouth 2 (two) times a day. Active meclizine (ANTIVERT) 25 mg tablet Take 1 tablet (25 mg total) by mouth 1 (one) time each day if needed for dizziness. 20 tablet 3 4 Active DULoxetine (CYMBALTA) [address] capsule 4 Active DULoxetine (CYMBALTA) [address] capsule Take by mouth. Acti ve Creon 24,000-76,000 -120,000 unit capsule Take by mouth. Activ e omeprazole (PRILOSEC) 20 mg tablet,delayed release (DR/EC) Take by mouth. Active timoloL (BETIMOL) 0.25 % ophthalmic solution 1-2 drops 2 (two) times a day. Active betamethasone, augmented, (DIPROLENE-AF) 0.05 % cream Apply topically 2 (two) times a day. Active multivitamin with minerals tablet Take 1 tablet by mouth 1 (one) time each day. Active comp.stocking,th igh,long,large misc Active galcanezumab-gnl m (Emgality Pen) 120 mg/mL injection pen ADMINISTER 1 ML(120 MG) UNDER THE SKIN EVERY 30 DAYS 1 mL 3 5 Active tiZANidine (ZANAFLEX) 2 mg tablet 1 po bid 180 tablet 1 5 Active Active Problems Problem Noted Date Diagnosed Date Anemia 11/13/2016 Encounters Date Type Department Care Team Description 07/04/2024 3:00 PM EST Office Visit [facility] [address] [address] Rain Dyer PA Migraine without aura and without status migrainosus, not intractable (Primary Dx) 06/24/2024 Telephone [facility] [address] [address] Rain Dyer PA 06/12/2024 Telephone [facility] [address] [address] Rain Dyer PA from Last 3 Months Immunizations Name Administration Dates Next Due [employer] SARS-CoV-2 COVID-19, mRNA, LNP-S, preservative free 10/25/2021,07/29/2020,07/08/2020 Surgical History Surgery Date Site/Laterality Comments GASTRIC BYPASS PROCEDURE:GASTRIC BYPASS ABDOMINAL ADHESION SURGERY PROCEDURE:ABDOMINAL ADHESION SURGERY Medical History Medical History Date Comments Anemia DX:Anemia GERD (gastroesophageal reflux disease) DX:GERD (gastroesophageal reflux disease) Asthma DX:Asthma 'Rchwy-mbq-qslso' wit h signs of malnutrition DX:'Lxtys-txm-talgp' with signs of malnutrition Osteoarthritis DX:Osteoarthriti s Lymphedema of leg DX:Lymphedema of leg Carpal tunnel syndrome of left wrist DX:Carpal tunnel syndrome of left wrist Polyneuropathy Family History Medical History Relation Name Comments Cancer Cousin Multiple sclerosis Mother Multiple sclerosis Sister Relation Name Status Comments Cousin Mother Sister Social History Tobacco Use Types Packs/Day Years Used Date Smoking Tobacco: Never Smokeless Tobacco: Never Tobacco Cessation:Counseling Given: Not Answered Alcohol Use Standard Drinks/Week Comments No 0 (1 standard drink = 0.6 oz pur e alcohol) Comments Unknown Sex and Gender Information Value Date Recorded Sex Assigned at Female 03/25/2024 10:12 AM EST Legal Sex Female 12:17 PM EST Gender Identity Female 03/25/2024 10:12 AM EST Sexual Orientation Choose not to disclose 2023 10:12 AM EST Obstetrics History Last Filed Vital Signs Vital Sign Reading Time Taken Comments Blood Pressure 141/98 07/04/2024 2:57 PM EST Pulse 80 07/04/2024 2:57 PM EST Temperature 36.7 ??C (98.1 ??F) 07/04/2024 2:57 PM ES T Respiratory Rate 20 03/25/2024 11:26 AM EST Oxygen Saturation 93% 07/04/2024 2:57 PM EST Inhaled Oxygen Concentration - - Weight 86.2 kg (190 lb) 07/04/2024 2:57 PM EST Height 160 cm (5' 3 ) 07/04/2024 2:57 PM EST Body Mass Index 33.66 07/04/2024 2:57 PM EST Plan of Treatment Upcoming Encounters Date Type Department Care Team (Late st Contact Info) Description 01/02/2025 11:30 AM EDT Office Visit [facility] [address] [place] [address] Christine Escobar MD [address] [facility] [address] [place] [phone] Health Maintenance Due Date Last Done Comments Breast Cancer Screening 1969 Hepatitis B Vaccines (1 of 3 - 19+ 3-dose series) 1988 Cervical Cancer Screening: Pap Smear 1990 Zoster Vaccines (1 of 2) 2019 Cholesterol Screening (Lipid Panel) 06/12/2023 Colorectal Cancer Screening: Colonoscopy 06/12/2023 Depression Screening 06/12/2023 HIV Screening 06/12/2023 Hepatitis C Screening 06/12/2023 Medicare Annual Wellness Visit 06/12/2023 Osteoporosis Screening (Bone Density Screening) 06/12/2023 Social Influencers of Health Screening 06/12/2023 Hypertension/CHF/CAD Annual BMP Blood Test 06/16/2023 COVID-19 Vaccine ( season) 2024 03/13/2022, 10/25/2021, 07/29/2020, Additional history exists DTaP,Tdap,and Td Vaccines (3 - Td or Tdap) 09/28/2025 09/29/2015, 04/16/2007 Pneumococcal Vaccine: 50+ Years Completed 12/20/2023, 12/31/2015, 02/11/2015, Additional history exists Pneumococcal Vaccine: Pediatrics (0 to 5 Years) and At-Risk Patients (6 to 64 Years) Completed 12/20/2023, 12/31/2015, 02/11/2015, Additional history exists Influenza Vaccine Completed 01/18/2024, , 03/01/2021, Additional history exists HIB Vaccines Aged Out No longer eligi ble based on patient's age to complete this topic HPV Vaccines Aged Out No longer eligi ble based on patient's age to complete this topic Hepatitis A Vaccines Aged Out No long er eligible based on patient's age to complete this topic IPV Vaccines Aged Out No longer eligi ble based on patient's age to complete this topic MMR Vaccines Aged Out No longer eligi ble based on patient's age to complete this topic Meningococcal ACWY Vaccine Aged Out N o longer eligible based on patient's age to complete this topic Meningococcal B Vaccine Aged Out No l onger eligible based on patient's age to complete this topic RSV Immunization Patients Under 20 months Aged Out No longer eligible based on patient's age to complete this topic Varicella Vaccines Aged Out No longer eligible based on patient's age to complete this topic Procedures Procedure Name Priority Date/Time Associated Diagnosis Comments EXTERNAL MRI REPORT 06/29/2024 EXTERNAL MRI REPORT 06/29/2024 from Last 3 Months Results * External MRI Report (06/29/2024) Only the most recent of2 resultswithin the time period is included. Anatomical Region Laterality Modality Magnetic Resonan ce us Provider [facility] MRI PROCEDURES Final Result from Last 3 Months Insurance MEDICAID - [place] MEDICARE Care Teams Senior Operations Analyst Relationship Specialty Start Date End Date Kala López MD [address] [place] [address] PCP - General 11/04/16
--- OUTSIDE RECORDS SUMMARY | 2024-08-26 18:26 | XMS_ITS | Continuity of Care Document ---
Author Organization [facility] [address] [place] [address] Phone [phone] Care Team Providers Care Human Resources Technician Name Role Phone Kala López M.D. 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 07/26/2022 Tylenol Extra [id number] Tablets 2 by mouth twice daily as needed Unknown Dabchxqjia57qq Tablets DR take twice daily Unknown Vitamin O521gve (1000 Ut) Capsules 4 by mouth every day 100caps Kala Branch M.D. Calcium Citrate Chewy Mlyh495-07.5mg-mcg Chewtabs 1 by mouth twice a day Kala Branch M.D. Vitamin C500mg Tablets 1 by mouth 3 times daily Unknown Hmbcqyes90iw Capsules 1 bid Unknown Wvut505(50Zn) mg Capsules 1 qd Unknown Lidocaine-Prilocaine2. 5-2.5% Cream prn Unknown Hair Skin And Nails FormulaTablets 1 by mouth every day Unknown Gohhqjqgi263od Tablets 1 by mouth twice daily Unknown Betamethasone Dipropionate0.05% Cream apply twice daily to affected area as needed Unknown Cqzlkrrmmt188qv Tablets Take 1 tablet 2 times daily Unknown Duloxetine KXD47gd Caps Part take 1 capsule by mouth twice daily Unknown Duloxetine HJQ24fr Caps Part Take 1 by mouth every day Unknown [id number] Caps DR Umanzor Take 2 capsules by mouth four times daily Unknown Ventolin LDP335(90Base) mcg/Act Aerosol Use as directed every 4 to 6 hours Kala López M.D. Azelastine HCL (Nasal)0.1% Solution 1 spray to each nostril twice daily Carol Mayberry MD Fluticasone Bytiyacbmx51aln/Act Suspension Two sprays to each nostril twice daily Kala López M.D. Meclizine VTR40zv Tablets Take 1 tablet four times daily Unknown Betamethasone Valerate0.1% Cream Use daily up to four times Kala López M.D. Bcgsfvhys65-0.5mcg/Act Aerosol 2 puffs twice daily Kala López M.D. Vital Signs Date Vital Result Comment 07/31/2023 9:04am BP Systolic 100 mmHg BP Diastolic 70 mmHg Heart Rate 96 /min Height 62.5 inches 5'2.50 Weight 150.38 lb BMI (Body Mass Index) 27.1 kg/m2 Results Test Acquired Date Facility Test Result H/L Range Note Calcium 07/31/2023 [facility] Calcium 9.7 mg/dL 8.7-10.2 Albumin 07/31/2023 [facility] Albumin 4.2 g/dL 3.8-4.9 N-Telopeptide, Urine 07/31/2023 [facility] N-Telopeptide 2092 nmolBCE Not Estab. Creatinine, Urine 129.2 mg/dL Not Estab. N-Telo/Creat. Ratio 183 nMBCE/mMCr High 0-89 Interpretive Guide: See Comment: 1 Creatinine 07/31/2023 [facility] Creatinine 0.71 mg/dL 0.57-1.00 eGFR 101 mL/min/1.73 >59 PTH, Intact 08/14/2022 [facility] PTH, Intact 72 pg/mL High (15-65) Calcium 08/14/2022 [facility] Calcium 9.6 mg/dL (8.6-10.5 ) Albumin 08/14/2022 [facility] Albumin 4.6 GM/DL (3.4-4.8) TSH 08/14/2022 [facility] TSH 1.10 uIU/mL (0.4-4.2) 25Oh Vitamin D 08/14/2022 [facility] 25Oh Vitamin D 65.3 NG/ML High (20-50) TSH With Reflex To FT4 07/26/2022 [facility] TSH With Reflex To FT4 1.50 uIU/mL (0.4-4.2) Albumin 07/26/2022 [facility] Albumin 4.3 GM/DL (3.4-4.8) 25Oh Vitamin D 07/26/2022 [facility] 25Oh Vitamin D 60.2 NG/ML High (20-50) Calcium 07/26/2022 [facility] Calcium 9.8 mg/dL (8.6-10.5 ) PTH, Intact 07/26/2022 [facility] PTH, Intact 44 pg/mL (15-65) TSH 04/13/2022 [facility] TSH <pending> Calcium 04/13/2022 [facility] Calcium <pending> Albumin 04/13/2022 [facility] Albumin <pending> PTH, Intact 04/13/2022 [facility] PTH, Intact <pending> 25Oh Vitamin D 04/13/2022 [facility] 25Oh Vitamin D <pending> 1 The N-telopeptide [...] measured NTx value is <or=38 nM BCE/mM CABINETMAKER APPRENTICE, or NTx has decreased >or=30% from baseline.[1] 3. Patients with Paget's Disease of Bone: The probability that treatment is effective after one month is increased when the measured NTx value is within the reference range, or NTx has decreased >or=30% from baseline.[2] 1. Oanh CH, [place] NH, Rocky GS, et al. Am J Med, 102:29-37,1997. (1):M757, 1996. 2. Bone H, Krysten J, et al. J Bone Min Res.11(1):M757,1995 Procedures Date Code Description Status 07/31/2023 26879 Collection Of Venous Blood B y Venipuncture Completed 07/26/2022 97120 Collection Of Venous Blood B y Venipuncture [...]
--- OUTSIDE RECORDS SUMMARY | 2024-08-26 18:26 | XMS_ITS | Clinical Summary ---
Author Organization [facility] Address [address] [facility] [address] [place] [address] Phone Care Team Providers Care Photogrammetric Technician Name Role Phone Kala López MD Primary Care Provider +1- [phone] Allergies Active Allergy Reactions Criticality Noted Date Comments Adhesive Tape 08/14/2022 Other reaction(s): rash Benzocaine 01/18/2016 Mometasone Furoate 01/18/2016 Aspirin Other (see comments) 01/18/2016 Bacitracin-Polymyxin B 08/14/2022 Benzalkonium Chloride 11/06/2016 Calcium Carbonate Antacid 08/14/2022 Other reaction(s): rash,itchy Chlordiazepoxide Other (see comments) Low 6 Clonazepam Other (see comments) Medium 02/04/2016 Diphenhydramine Palpitations Low 08/14/2022 Diphenhydramine-Acetamino phen High 02/04/2016 Other reaction(s): Pulmonary reactions Diphenoxylate 11/06/2016 Doxycycline 08/13/2023 Dronabinol Other (see comments) 01/18/2016 Duloxetine Other (see comments) 08/14/2022 Duloxetine Hcl 01/18/2016 Heparin 01/18/2016 Heparin (Porcine) Other (see comments) 08/15/19 Hydromorphone 08/13/2023 Hydromorphone Hcl 08/14/2022 Other reaction(s): trigemy brigrmy episodes Ibuprofen Other (see comments) 01/18/2016 Iron Other (see comments) 08/14/2022 Iron Dextran 01/18/2016 Lamotrigine Other (see comments) Medium 02/04/2016 Other reaction(s): Pulmonary reactions Other Reaction(s): Pulmonary reactions Latex Other (see comments) 08/14/2022 Lidocaine Other (see comments) 01/18/2016 Montelukast Anaphylaxis,Other (see comments) High 02/04/2016 Alum & Mag Hydroxide-Simeth Other (see comments) 08/14/2022 Nbf-Aevye-Agwq-Lidocaine 01/18/2016 Neomycin-Bacitracin Zn-Polymyx Other (see comments) 08/14/2022 Nortriptyline Other (see comments) 01/18/2016 Ondansetron 08/14/2022 Other reaction(s): trigemy brigemy episodes Oxycodone-Acetaminophen Other (see comments) Penicillin G Other (see comments) Low 02/04/2016 Pregabalin Other (see comments) 01/18/2016 Rofecoxib Rash Medium 02/04/2016 Scopolamine Other (see comments) 01/18/2016 Sulfamethoxazole-Trimetho prim Other (see comments) 01/18/2016 Other reaction(s): hives Camphor-Menthol Other (see comments) 08/14/2022 Medications acetaminophen (TYLENOL) 500 MG tablet Take 1,000 mg by mouth 07/26/19 23 Active Ventolin HFA 108 (90 Base) MCG/ACT inhaler 08/14/19 23 Active Ascorbic Acid 500 MG chewable tablet Chew 500 mg 2 (two) times a day Active betamethasone valerate (VALISONE) 0.1 % cream 08/14/19 23 Active Symbicort 80-4.5 MCG/ACT inhaler 08/14/19 23 Active CALCIUM CITRATE PO Take by mouth 02/06/20 18 Active cetirizine (ZyrTEC ALLERGY) 10 MG tablet Take 10 mg by mouth 02/06/20 18 Active cholecalciferol (VITAMIN D-3) 25 MCG (1000 UT) tablet Take 1,000 Units by mouth Active Biotin 10 MG capsule Take 1 capsule by mouth 1 (one) time each day Active cyanocobalamin (VITAMIN B-12) 1000 MCG/ML injection by Other route 06/13/19 23 Active DULoxetine (CYMBALTA) [address] capsule 08/05/19 23 Active EPINEPHrine (EpiPen 2-Juan C) 0.3 MG/0.3ML injection syringe See Instructions, Intramuscular Once, # 1 each, 1 Refills, Soft Stop, 01/13/21 22:15:00 EDT, [facility], Partial fill upon patient request if the prescription is for a schedule II opioid drug., 162.56, cm, 01/13/21 8:16:00 EDT, Height, 94.2, k... 01/14/20 21 Active fluticasone (FLONASE) 50 MCG/ACT nasal spray 08/14/19 23 Active folic acid (FOLVITE) 1 MG tablet Take 1 tablet by mouth 05/12/20 22 Active ipratropium-alb uterol (DUO-NEB) 0.5-2.5 mg/3 mL nebulizer solution Inhale 12/31/19 21 Active ketotifen (ZADITOR) 0.025 % ophthalmic solution 0 Refills, Maintenance, 10/12/20 8:13:00 EDT, Partial fill upon patient request if the prescription is for a schedule II opioid drug. 10/13/19 21 Active azelastine (ASTELIN) 0.1 % nasal spray 07/19/19 23 Active magnesium oxide 250 MG tablet Take 250 mg by mouth 01/24/20 22 Active meclizine (ANTIVERT) 25 MG tablet 08/14/19 23 Active naloxone (NARCAN) 0.4 MG/ML injection Infuse 0.4 mg into a venous catheter Active Nutritional Supplements (Ensure High Protein) liquid Take by mouth 3 times a day Active Creon [id number] units capsule 08/14/19 23 Active thiamine (VITAMIN B-1) 100 MG tablet Take 100 mg by mouth in the morning and 100 mg in the evening. Active timolol (BLOCADREN) 10 MG tablet Take 1 tablet by mouth 1 (one) time each day Active topiramate (TOPAMAX) 25 MG tablet 25 mg 1 (one) time each day 08/14/19 23 Active Vitamin A 2400 MCG (8000 UT) capsule Take 1 capsule by mouth 2 (two) times a day Active alpha tocopherol (VITAMIN E) 400 units capsule Take 400 Units by mouth Active diphenoxylate-a tropine (LOMOTIL) 2.5-0.025 MG per tablet 07/17/19 24 Active ipratropium (ATROVENT) 0.03 % nasal spray 06/11/19 24 Active omeprazole (PriLOSEC) [address] capsule 08/07/19 24 Active Multiple Vitamins-Minera ls (Hair Skin and Nails Formula) tablet Take by mouth Active furosemide (LASIX) 20 MG tablet Take 1 tablet (20 mg total) by mouth 1 (one) time each day 90 tablet 3 11/27/19 24 025 Active Galcanezumab-gn lm (Emgality) 120 MG/ML solution auto-injector Inject under the skin See administration instructions Every 4 weeks Active furosemide (LASIX) 20 MG tablet Take 1 tablet (20 mg total) by mouth 3 (three) times weekly on Sunday 36 tablet 3 12/15/19 24 Active Active Problems Problem Noted Date Diagnosed Date Adhesive capsulitis of shoulder 08/14/2022 Antiepileptic adverse reaction 08/14/2022 Overview (08/14/2022): Zonisamide prescribed 11/30/10 to address both abdominal pain & LE neuropathic pain. Experienced vomiting & ? incr'd abdominal pain at 100mg/day, but pushed to 150mg - it just made it worse. Trial abandoned. Bilateral lower limb edema 08/14/2022 Decreased range of cervical spine movement 08/14 Left lower quadrant pain 08/14/2022 Fibromyositis 08/14/2022 Finding of activity of daily living 08/14/2022 Overview (08/14/2022): updated Oswestry Disability Index: 50% (severe disability ) on 06/29/22, updated [place] Back Pain Scale: 26 on 06/29/22Updated [place]estry Disability Index: 47% (21/45; severe disability ); updated [place] Back Pain Disability Scale score: 38 both 08/25/20Updated [place]estry Disability Index: 48% ( severe disability ) on 03/11/19; updated [place] Back Pain Disability Scale score: 42 on 03/11/19Updated Oswestry Disability Index: 44% ( severe disability ) on 08/23/17; updated [place] Back Pain Disability Scale score: 44 on 08/23/17.Updated Oswestry Disability Index: 53% (24/45; severe disability ) on 07/31/16; updated [place] Back Pain Disability Scale score: 34 on 07/31/16.Updated [place]estry Disability Index: 40% ( moderate disability ) on 04/23/15; updated [place] Back Pain Disability Scale score: 19 on 06/24/14.Updated [place]estry Disability Index: 34% ( moderate disability ) on 10/31/13; initial [place] Back Pain Disability Scale score: 28 on 10/31/13.Updated [place]estry Disability Index: 36% ( moderate disability ) on 12/12/11.Initial [place] Disability Index: 26% ( moderate disability ) on 11/30/10. Gastroesophageal reflux disease 08/14/2022 H/O: pulmonary embolus 08/14/2022 H/O Spinal surgery 08/14/2022 Overview (08/14/2022): On 09/19/2016 underwent laparoscopic hiatal hernia repair by Cameron Castaneda MD at [facility] 09/2001 vertical gastric bypass by James Royal MD at [facility] Hearing loss 08/14/2022 Decreased reflex 08/14/2022 Inflammatory dermatosis 08/14/2022 Mechanical low back pain 08/14/2022 Leukopenia 08/14/2022 Monocytosis 08/14/2022 Nausea 08/14/2022 Obese class I 08/14/2022 Opioid analgesic adverse reaction 08/14/2022 Peripheral vertigo 08/14/2022 Thyroid stimulating hormone level above referenc e range 08/14/2022 Screening status 08/14/2022 Overview (08/14/2022): BETH score: 5 on 04/12/17 Shoulder joint - range of movement - finding 07/2022 Spasm 08/14/2022 Sickle cell trait 08/14/2022 Talipes planus 08/14/2022 Subclinical hypothyroidism 08/14/2022 Acute nontraumatic kidney injury 07/27/2022 Chronic kidney disease stage 3 07/27/2022 Edema 07/27/2022 Lymphedema 07/27/2022 Acquired lymphedema of lower extremity Clostridium difficile colitis 07/26/2022 Cobalamin deficiency 07/26/2022 Essential hypertension 07/26/2022 Hyperparathyroidism 07/26/2022 Migraine 07/26/2022 Non-toxic multinodular goiter 07/26/2022 Osteoarthritis 07/26/2022 Osteoporosis 07/26/2022 Pulmonary embolism 07/26/2022 Spinal stenosis of lumbar region 07/26/2022 Vertigo 07/26/2022 Thalassemia 07/26/2022 Low back pain 02/20/2017 Other injury of muscle(s) an d tendon(s) of the rotator cuff of left shoulder, sequela 02/15/2017 Pain in left shoulder 01/02/2017 Anemia 11/13/2016 Overview (08/14/2022): progressive microcytic hypochromic anemia ; normal Fe studies and normal B12 and folate 08/27/2008 Pain in left hand 09/23/2016 Personal history of other disease of the digesti ve system 09/22/2016 Generalized muscle weakness 07/30/2016 Abdominal pain 01/18/2016 Anxiety disorder 01/18/2016 Cognitive communication deficit 01/18/2016 Difficulty in walking 01/18/2016 Dysphagia, oral phase 01/18/2016 History of falling 01/18/2016 Major depressive disorder with single episode Other chronic pain 01/18/2016 Other lack of coordination 01/18/2016 Other malaise 01/18/2016 Pain in left leg 01/18/2016 Radiculopathy of lumbosacral region 01/18/2016 Uncomplicated asthma 01/18/2016 Repair of umbilical hernia 07/19/2010 Overview (08/14/2022): 1. Diagnostic laparoscopy; 2. Lysis of adhesions; 3. Reduction of periumbilical hernia and primary closure of the defect for prolonged left-sided abdominal pain with nausea and occasional vomiting, attributed to adhesions & periumbilical hernia, by Cameron Castaneda M.D. at [facility] Intussusception of intestine 01/16/2006 Overview (08/14/2022): presented as abdominal pain. Treated with reduction of small bowel, reverse intussusception and jejunojenopexy by Jack Barron MD at [facility] Encounters Date Type Department Care Team Description 08/12/2024 Orders Only [facility] [address] [place] [address] Selvin Arce MD Chronic kidney disease, not otherwise specified from Last 3 Months Immunizations Immunization Administration Dates Next Due Influenza, Unspecified 03/01/2021,2018,02/05/2018,03/23/2017,02/12,03/02/2016,03/25/2015,04/23/2014,01/22/20 13,03/06/2012,01/24/2011,01/28/2010,07/23/2009,1 Pfizer SARS-COV-2 10/25/2021,07/29/2020,07/08/19 21 Pneumococcal Conjugate 02/11/2015 Pneumococcal Polysaccharide 12/31/2015, 5,07/12/2009,03/16/2006 Tdap 09/29/2015,04/16/2007 Family History Medical History Relation Comments Hypertension Father Diabetes Mother Hypertension Mother Kidney disease Mother Relation Status Comments Father Unknown Mother Unknown Social History Tobacco Use Types Packs/Day Years Used Date Smoking Tobacco: Never Passive Smoke Exposure: Never Smokeless Tobacco: Never Tobacco Cessation:Counseling Given: Not Answered Alcohol Use Standard Drinks/Week Comments No 0 (1 standard drink = 0.6 oz pur e alcohol) Comments Unknown Sex and Gender Information Value Date Recorded Sex Assigned at Not on file Legal Sex Female 5:09 PM EST Gender Identity Not on file Sexual Orientation Not on file Last Filed Vital Signs Vital Sign Reading Time Taken Comments Blood Pressure 108/64 12/14/2023 9:30 AM EDT Pulse 88 12/14/2023 9:30 AM EDT Temperature - - Respiratory Rate - - Oxygen Saturation 99% 08/13/2023 12:54 PM EDT Inhaled Oxygen Concentration - - Weight 72.6 kg (160 lb) 12/14/2023 9:30 AM EDT Height 157.5 cm (5' 2 ) 06/11/2020 12:00 PM EST Body Mass Index 29.26 06/11/2020 12:00 PM EST Plan of Treatment Upcoming Encounters Date Type Department Care Team (Late st Contact Info) Description 12/29/2024 1:15 PM EDT Office Visit [facility] [address] [place] [phone] Selvin Arce MD [address] [facility] [address] [place] [address] Health Maintenance Due Date Last Done Comments Breast Cancer Screening 1969 Hepatitis B Vaccine (1 of 3 - 19+ 3-dose series) 1988 Pneumococcal Vaccine: 50+ Ye ars (3 of 3 - PCV) 12/30/2016 12/31/2015, 02/11/2015, 02/11/2015, Additional history exists Colorectal Cancer Screening: Annual FOBT 2018 Colorectal Cancer Screening: Colonoscopy 2018 Colorectal Cancer Screening: Sigmoidoscopy 2018 Influenza Vaccine (Season Ended) 2025 03/15/2023, 03/01/2021, 03/27/2019, Additional history exists Pneumococcal Vaccine: Peds ( 0 to 5 Years) and At-Risk Patients (6 to 49 Years) Discontinued 12/31/2015, 02/11/2015, 02/11/2015, Additional history exists Insurance Medicare Medicaid [place] Medicare Medicaid [place] Care Teams Photogrammetric Technician Relationship Specialty Start Date End Date Kala López MD [address] [place], [place] PCP - General 05/24/20
--- OUTSIDE RECORDS SUMMARY | 2024-08-26 18:26 | XMS_ITS | Clinical Summary ---
Author Organization [facility] Address [address] [place] [address] Care Team Providers Care Editor News Name Role Phone HowardBecky GLADIS Primary Care Provider Source Comments PLEASE NOTE, if this patient is a minor, it may be UNLAWFUL to discuss sensitive information that is contained in these records (such as FAMILY PLANNING, MENTAL HEALTH or SUBSTANCE ABUSE) with the minor patient's parent or other person without the patient's specific authorization.[facility] Medications No known medications Active Problems No known active problems Social History Tobacco Use Types Packs/Day Years Used Date Smoking Tobacco: Never Smokeless Tobacco: Never Tobacco Cessation:Counseling Given: Not Answered Social Connections Answer Date Recorded Connectedness 0 01/25/2024 Financial Resource Strain Answer Date R ecorded Financial Resource Strain 0 2019 Stress Answer Date Recorded Stress 0 04/21/2020 Physical Activity Answer Date Recorded Physical Activity 0 04/21/2020 Food Insecurity Answer Date Recorded Food 0 02/07/2024 Transportation Needs Answer Date Record ed Transportation 0 04/21/2020 Housing Stability Answer Date Recorded Housing 0 04/21/2020 Safety and Environment Answer Date Az rded Safety 0 04/21/2020 Utilities Answer Date Recorded Utilities 0 04/21/2020 Employment Answer Date Recorded Stress 0 01/25/2024 Comments Unknown Sex and Gender Information Value Date Recorded Sex Assigned at Not on file Legal Sex Female 6:24 AM PDT Gender Identity Not on file Sexual Orientation Not on file Last Filed Vital Signs Vital Sign Reading Time Taken Comments Blood Pressure 125/91 02/09/2023 2:08 PM EDT Pulse 81 02/09/2023 2:08 PM EDT Temperature - - Respiratory Rate - - Oxygen Saturation - - Inhaled Oxygen Concentration - - Weight - - Height - - Body Mass Index - - Plan of Treatment Health Maintenance Due Date Last Done Comments Anxiety Screening 1969 Diabetes Screening 1969 HPV Screening 1969 Hepatitis C Screening 1969 Lipid Screening 1969 Pap + HPV 1969 Tobacco Screening 1969 HIV Screening 1984 Imm-Hepatitis B (1 of 3 - 19 + 3-dose series) 1988 Cervical Cancer Screening 1990 Pap Smear 1990 Breast Cancer Screening (Mammogram) 2009 CT Colonography 2014 Colonoscopy 2014 Colorectal Cancer Screening 2014 FIT/gFOBT 2014 Fecal DNA 2014 Flexible Sigmoidoscopy 2014 Imm-Zoster, Recombinant (1 of 2) 2019 Wcd-NSRLU-18 (4 - 2023- season) 2024 10/25/2021, 07/29/2020, 07/08/2020 Imm-Influenza (#1) 2024 03/15/2023, 1 , 03/27/2019, Additional history exists Hypertension Screening (#1) 02/09/2024 Alcohol and Drug Screen 05/14/2024 Depression Annual Screen 05/14/2024 Imm-DTaP/Tdap/Td (4 - Td or Tdap) 09/28/2025 09/29/2015, 09/28/2015, 04/16/2007 Cervical Ablation/Cold-Knife Conization Discontinued Cervical Cryotherapy Discontinued Colposcopy Discontinued Endometrial Biopsy Discontinued Excision/Leep Discontinued HPV Genotyping Discontinued Vaginal Pap Discontinued Vulvoscopy Discontinued [place] [address] Care Teams Editor News Relationship Specialty Start Date End Date Becky Lawrence DMD [address] [place] [address] PCP - General 07/23/20
--- NOTE | 2024-08-27 09:17 | MHC.AU.HA3 ---
Hearing Instrument Follow-Up- Binaural Date of Visit: 08/26/24 Senior Loss Control Specialist Used: Right Ear: Make, Model, Color, Serial Number: Miesha Stone [id number] SN: [id number] Color: Graphite Wilkinson Portrait Studio Photographer Repair Warranty: 12/29/2022 Portrait Studio Photographer Loss and Damage Warranty: 12/29/2022 [facility] Service Plan: 10/13/2020 Battery Size: 312 Pneumatic Tube Repairer/Slim Tube: 1M Earmold/Dome/CShell/SlimTip:Small open dome with retention tail Type of Wax Guard: Cerushield Dispensed By: [facility] Date of Fittin10/14/2019 Follow-Up Summary: Right media reporter broken. Replaced out of warranty. Cleaned microphones, significant debris removed. Changed dome. Listening check ok. Follow up as needed. Recommendations: Recommendations: Patient will call if problems persist. 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
== END 2024-08-26 15:08 | disposition home or self-care (01) ==
LOC: HO.HAP 15:07
PROVIDERS: Visit Provider Internal Medicine
DX: Z46.1 Encounter for fitting and adjustment of hearing aid (principal); H90.41 Sensorineural hearing loss, unilateral, right ear, with unrestricted hearing on the contralateral side
CPT/HCPCS: 92592; 99499; V5299

== ENCOUNTER 2024-12-17 14:40 | Outpatient (REF) | payer MEDICARE, MEDICAID, SELFPAY ==
--- OUTSIDE RECORDS SUMMARY | 2024-12-17 15:05 | XMS_ITS | Clinical Summary ---
Author Organization [facility] Address [address] [facility] [address] [place] [address] Phone Care Team Providers Care Welfare Eligibility Worker Name Role Phone Kala López MD Primary Care Provider +1- [phone] Allergies Active Allergy Reactions Criticality Noted Date [...] & Mag Hydroxide-Simeth Other (see comments) 08/14/2022 Sju-Crcwb-Iglm-Lidocaine 01/18/2016 Neomycin-Bacitracin Zn-Polymyx Other (see comments) 08/14/2022 [...] 1 Refills, Soft Stop, 01/13/21 22:15:00 EDT, [facility], Partial fill upon patient request [...] mouth 3 times a day Active Creon [id number] units capsule 08/14/19 23 Active thiamine (VITAMIN [...] each day 90 tablet 3 11/27/19 24 Active Galcanezumab-gn lm (Emgality) 120 MG/ML solution auto-injector Inject under the skin See administration instructions Every 4 weeks Active furosemide (LASIX) 20 MG tablet TAKE ONE TABLET BY MOUTH THREE TIMES WEEKLY ON SUNDAY, SUNDAY, AND SUNDAY [id number] 36 tablet 3 10/18/19 25 Active Active Problems Problem Noted Date Diagnosed [...] 50% (severe disability ) on 06/29/22, updated [place] Back Pain Scale: 26 on 06/29/22Updated [place]estry Disability Index: 47% (21/45; severe disability ); updated [place] Back Pain Disability Scale score: 38 both 08/25/20Updated [place] Disability Index: 48% ( severe disability ) on 03/11/19; updated [place] Back Pain Disability Scale score: 42 on 03/11/19Updated [place] Disability Index: 44% ( severe disability ) on 08/23/17; updated [place] Disability Scale score: 44 on 08/23/17.Updated [place] Disability Index: 53% (24/45; severe disability ) on 07/31/16; updated [place] Disability Scale score: 34 on 07/31/16.Updated [place] Disability Index: 40% ( moderate disability ) on 04/23/15; updated [place] Disability Scale score: 19 on 06/24/14.Updated [place] Disability Index: 34% ( moderate disability ) on 10/31/13; initial [place] Pain Disability Scale score: 28 on 10/31/13.Updated [place] Disability Index: 36% ( moderate disability ) on 12/12/11.Initial [place] Disability Index: 26% ( moderate disability ) on 11/30/10. Gastroesophageal reflux disease 08/14/2022 H/O: pulmonary embolus 08/14/2022 H/O Spinal surgery 08/14/2022 Overview (08/14/2022): On 09/19/2016 underwent laparoscopic hiatal hernia repair by Cameron Castaneda MD at [facility] 09/2001 vertical gastric bypass by James Royal MD at [facility] Hearing loss 08/14/2022 Decreased reflex 08/14/2022 Inflammatory [...] periumbilical hernia, by Cameron Castaneda M.D. at [facility] Intussusception of intestine 01/16/2006 Overview (08/14/2022): presented as abdominal pain. Treated with reduction of small bowel, reverse intussusception and jejunojenopexy by Jack Barron MD at [facility] Encounters Date Type Department Care Team Description 10/17/2024 Refill [facility] [address] [place] [id number] Selvin Arce MD from Last 3 Months Immunizations Immunization Administration [...] Upcoming Encounters Date Type Department Care Team ([facility] st Contact Info) Description 12/29/2024 1:15 PM EDT Office Visit [facility] [address] [facility] [address] [place] [id number] Selvin Arce MD [address] [facility] [address] [place] [phone] Health Maintenance Due Date Last Done Comments Breast Cancer Screening 1969 Hepatitis B Vaccine (1 of 3 - 19+ 3-dose series) 1988 Pneumococcal Vaccine: 50+ Ye ars (3 of 3 - PCV) 12/30/2016 12/31/2015, 02/11/2015, 02/11/2015, Additional history exists Colorectal Cancer Screening: Annual FOBT 2018 Colorectal Cancer Screening: Colonoscopy 2018 Colorectal Cancer Screening: Sigmoidoscopy 2018 Influenza Vaccine (#1) 2025 3, 03/01/2021, 03/27/2019, Additional history exists Pneumococcal Vaccine: Peds ( 0 to 5 Years) and At-Risk Patients (6 to 49 Years) Discontinued 12/31/2015, 02/11/2015, 02/11/2015, Additional history exists Insurance Medicaid [place] Medicaid [place] Medicare Care Teams Welfare Eligibility Worker Relationship Specialty Start Date End Date Kala López MD [address] [place], [place] PCP - General 05/24/20
--- OUTSIDE RECORDS SUMMARY | 2024-12-17 15:05 | XMS_ITS | Patient Health Record ---
Author Organization [facility] Address [address] [place] [address] Care Team Providers Care Stripping Machine Operator Name Role Phone Chey DAY, Brooke Alvarez Primary Care Provider Maximo Mackenzie Unavailable [phone] Allergies Allergen (clinical drug ingredient) Drug/Non Drug Allergy documented on EMR Reaction Allergy Type Onset Date Status Information temporarily unavailable Dextrin Unknown Drug Allergy Active Information temporarily unavailable Heparin Unknown Drug Allergy Active Information temporarily unavailable Scopolamine Unknown Drug Allergy Active Information temporarily unavailable Advil asthma Drug Allergy Active Information temporarily unavailable Aleve asthma Drug Allergy Active Information temporarily unavailable Anbesol Unknown Drug Allergy Active Information temporarily unavailable Aspirin hives Drug Allergy Active Information temporarily unavailable Bactrim Unknown Drug Allergy Active Information temporarily unavailable Biaxin asthma Drug Allergy Active Information temporarily unavailable Cymbalta Unknown Drug Allergy Active Information temporarily unavailable Erythromycin asthma Drug Allergy Active Information temporarily unavailable Iodine Unknown Drug Allergy Active Information temporarily unavailable Iron Dextran heart stop Drug Allergy Active Information temporarily unavailable Klonopin Unknown Drug Allergy Active Information temporarily unavailable Lamictal Unknown Drug Allergy Active Information temporarily unavailable Lidocaine Unknown Drug Allergy Active Information temporarily unavailable Lyrica Unknown Drug Allergy Active Information temporarily unavailable Motrin asthma Drug Allergy Active Information temporarily unavailable Percocet Unknown Drug Allergy Active Information temporarily unavailable Topamax Unknown Drug Allergy Active Information temporarily unavailable sulfa hives Drug Allergy Active Information temporarily unavailable Penicillin hives Drug Allergy Active Information temporarily unavailable Codeine hives Drug Allergy Active Information temporarily unavailable injectable steriods Unknown Drug Allergy Active Information temporarily unavailable adhesive tape Unknown Drug Allergy Active Information temporarily unavailable latex Unknown Drug Allergy Active Information temporarily unavailable Vioxx Unknown Drug Allergy Active Information temporarily unavailable Z Pac asthma Drug Allergy Active Information temporarily unavailable Merthiolate Unknown Drug Allergy Active Reason For Referral No Information Medications Medication SIG (Take, Route, Frequency, Duration) Notes Start Date End Date Status Vitamin E Active Morphine Sulfate 30 MG 1 tablet as neede d Orally every 4 hrs Active Ventolin HFA Active Multivitamins as directed Orally Active Magnesium Oxide Acti ve Omeprazole 40 MG 1 capsule Orally Onc e a day; Duration: 30 day(s) Active Refresh Active predniSONE 20 MG 1 tablet with food o r milk Orally Once a day; Duration: 30 day(s) Active Alavert Active Proferrin ES 12 MG as directed Orally Active Cipro 500 mg twice a day Activ e Qvar 80 MCG/ACT 1 puff Inhalation Tw ice a day Active EpiPen 0.3 MG/0.3ML as directed Injection Active Spironolactone 100 MG as directed Orally Active Fluticasone Propionate (Inhal) 50 MCG/BLIST 1 puff Inhalation Twice a day Active Vitamin A Active Furosemide 20 MG 1 tablet Orally Once a day; Duration: 30 day(s) Active Vitamin B-1 Active Lasix Active Vitamin C Active Meclizine HCl 25 MG 1 tablet as needed Orally Once a day; Duration: 30 day(s) Active Problems Problem Type SNOMED Code ICD Code Onset Dates Problem Status W/U Status Risk Notes Problem Edema (97029474) Edema (782.3) Active confirmed Problem Ingrowing nail (833977180) Ingrowing Nail (703.0) Active confirmed Problem Onychomycosis (893152088) Onychomycosis (110.1) Active confirmed Problem Pain in limb (17245120) Pain in Limb (729.5) Active confirmed Plan Of Treatment Pending Test Test Name Order Date [id number] NAIL, 6 OR MORE 03/13/2012 [id number] NAIL, 6 OR MORE 06/10/2012 [id number] Plate 06/10/2012 Insurance Providers Payer Name Payer Address Payer Phone Subscriber Number Group Number Insured Name Patient Relationship to Insured Coverage Start Date Coverage End Date Medicare National Govt Sv[employer] Inc [address] [place] [phone] [id number] Honey Quispe Self - patient is the insured 1 Medical (General) History Medical History History ICD Code anemia asthma back, hip, knee pain headaches/migraines hypertension neuropathy osteoarthritis poor circulation sciatica sickle cell trait transfusions vascular phlebitis(clots) vascular grafts reflux Surgical History Surgery Date(Month/Year) gastric bypass 09/12 vein surgery 2006 gall bladder stomach 09/18 Hospitalization History Reason Date(Month/Year) [facility] - dehydration 05/2011
--- OUTSIDE RECORDS SUMMARY | 2024-12-17 15:06 | XMS_ITS | Clinical Summary ---
Author Organization [facility] Address [address] [place] [address] Care Team Providers Care Structural Steel Fitter Name Role Phone Kala López MD Primary Care Provider [phone] Allergies Active Allergy Reactions Criticality Noted Date [...] 4 (four) times a day. 0 Active Cyoijhy-Qdmsyktiu-Evi munson D (CALCIUM 500 PO) Take by [...] as needed. 0 Active vitamin A capsule 01493 units Take 10,000 Units by mouth 2 [...] 93 02/07/2024 10:40 AM EDT Temperature 36.1 C (97 F) 02/07/2024 10:40 AM EDT Respiratory Rate - [...] 2024 10/25/2021, 07/29/2020, 07/08/2020 Influenza Vaccine (#1) 2025 , 03/01/2021, 03/27/2019, Additional history exists DTap / Tdap / Td (3 - Td or Tdap) 09/28/2025 09/29/2015, 04/16/2007 Pneumococcal Vaccine Aged Out 12/31/2015, 02/11/2015, 02/11/2015, Additional history exists No longer eligible based on patient's age to complete this topic RSV Ped < 20 months Aged Out No longe r eligible based on patient's age to complete this topic Care Teams Structural Steel Fitter Relationship Specialty Start Date End Date Kala López MD [address] [place] [address] PCP - General Internal Medicine 11/04/16
--- OUTSIDE RECORDS SUMMARY | 2024-12-17 15:06 | XMS_ITS | Clinical Summary ---
Author Organization [facility] Address [address] [place] [address] Care Team Providers Care Aerial Erector Name Role Phone HowardBecky GLADIS Primary Care Provider [phone] Source Comments PLEASE NOTE, if this patient [...] 2014 Fecal DNA 2014 Flexible Sigmoidoscopy 2014 Imm-Pneumococcal 50+ (2 of 2 - PCV) 2019 12/31/2015, 02/11/2015, 02/11/2015, Additional history exists Imm-Zoster, Recombinant (1 of 2) 2019 Zzj-BDNCL-50 (4 - 2023- season) 2024 10/25/2021, 07/29/2020, 07/08/2020 Hypertension Screening (#1) 02/09/2024 Alcohol and Drug Screen 05/14/2024 Depression Annual Screen 05/14/2024 Imm-Influenza (#1) 2025 03/15/2023, 1 , 03/27/2019, Additional history exists Imm-DTaP/Tdap/Td (4 - Td or Tdap) 09/28/2025 09/29/2015, 09/28/2015, 04/16/2007 Cervical Ablation/Cold-Knife Conization Discontinued Cervical Cryotherapy Discontinued Colposcopy Discontinued Endometrial Biopsy Discontinued Excision/Leep Discontinued HPV Genotyping Discontinued Vaginal Pap Discontinued Vulvoscopy Discontinued Insurance [place] MEDICA[place] DENTAL [facility] [place] [address] Care Teams Aerial Erector Relationship Specialty Start Date End Date Becky Lawrence DMD [address] [place] [address] PCP - General 07/23/20
--- OUTSIDE RECORDS SUMMARY | 2024-12-17 15:06 | XMS_ITS | Continuity of Care Document ---
Author Organization [facility] [address] [facility] [address] [place] [address] Phone [phone] Care Team Providers Care Building Rental Superintendent Name Role Phone Kala López M.D. 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 07/26/2022 Tylenol Extra Kxqolgqc357pa Tablets 2 by mouth twice daily as needed Unknown Gehwoeowrq45br Tablets DR take twice daily Unknown Vitamin P610ser (1000 Ut) Capsules 4 by mouth every day 100caps Kala Branch M.D. Calcium Citrate Chewy Djfe143-35.5mg-mcg Chewtabs 1 by mouth twice a day Kala Branch M.D. Vitamin C500mg Tablets 1 by mouth 3 times daily Unknown Snphssqs44xy Capsules 1 bid Unknown Siai928(50Zn) mg Capsules 1 qd Unknown Lidocaine-Prilocaine2. 5-2.5% Cream prn Unknown Hair Skin And Nails FormulaTablets 1 by mouth every day Unknown Popianlum181xq Tablets 1 by mouth twice daily Unknown Betamethasone Dipropionate0.05% Cream apply twice daily to affected area as needed Unknown Bmmfhmxxrw885ib Tablets Take 1 tablet 2 times daily Unknown Duloxetine NHK75hk Caps Part take 1 capsule by mouth twice daily Unknown Duloxetine WBS32mk Caps Part Take 1 by mouth every day Unknown Huwwq49968-70908Otmd Caps DR Umanzor Take 2 capsules by mouth four times daily Unknown Ventolin QZH997(90Base) mcg/Act Aerosol Use as directed every 4 to 6 hours Kala López M.D. Azelastine HCL (Nasal)0.1% Solution 1 spray to each nostril twice daily Carol Mayberry MD Fluticasone Ecvwokepvk49lxl/Act Suspension Two sprays to each nostril twice daily Kala López M.D. Meclizine PEH29je Tablets Take 1 tablet four times daily Unknown Betamethasone Valerate0.1% Cream Use daily up to four times Kala López M.D. Wkcflddwj69-7.5mcg/Act Aerosol 2 puffs twice daily Kala López M.DJuno Vital Signs Date Vital Result Comment 07/31/2023 [...] eGFR 101 mL/min/1.73 >59 PTH, Intact 08/14/2022 [facility] PTH, Intact 72 pg/mL High (15-65) Calcium 08/14/2022 [facility] Calcium 9.6 mg/dL (8.6-10.5 ) Albumin 08/14/2022 [facility] Albumin 4.6 GM/DL (3.4-4.8) TSH 08/14/2022 [facility] TSH 1.10 uIU/mL (0.4-4.2) 25Oh Vitamin D 08/14/2022 [facility] 25Oh Vitamin D 65.3 NG/ML High (20-50) TSH With Reflex To FT4 07/26/2022 [facility] TSH With Reflex To FT4 1.50 uIU/mL (0.4-4.2) Albumin 07/26/2022 [facility] Albumin 4.3 GM/DL (3.4-4.8) 25Oh Vitamin D 07/26/2022 [facility] 25Oh Vitamin D 60.2 NG/ML High (20-50) Calcium 07/26/2022 [facility] Calcium 9.8 mg/dL (8.6-10.5 ) PTH, Intact 07/26/2022 [facility] PTH, Intact 44 pg/mL (15-65) TSH 04/13/2022 [facility] TSH <pending> Calcium 04/13/2022 [facility] Calcium <pending> Albumin 04/13/2022 [facility] Albumin <pending> PTH, Intact 04/13/2022 [facility] PTH, Intact <pending> 25Oh Vitamin D 04/13/2022 [facility] 25Oh Vitamin D <pending> 1 [...] measured NTx value is <or=38 nM BCE/mM HEALTH INSPECTOR, or NTx has decreased >or=30% from baseline.[1] [...] Res.11(1):M757,1995 Procedures Date Code Description Status 07/31/2023 43595 Collection Of Venous Blood B y Venipuncture Completed 07/26/2022 88945 Collection Of Venous Blood B y Venipuncture [...] fracture Kala Branch M.D. Plan of Treatment Future Appointment(s):* 01/09/2025 3:00 pm - Kala Branch M.D. at Main Office 07/31/2023 - Kala Branch M.D.* E04.2 Nontoxic multinodular goiter * E21.3 Hyperparathyroidism, unspecified * M81.0 Age-related osteoporosis without current pathological fracture Functional Status Description No Information Available Mental Status Description No Information Available Referrals Description No Information Available
--- OUTSIDE RECORDS SUMMARY | 2024-12-17 15:06 | XMS_ITS ---
Author Name [facility] History of Medication Use Medication Directions Dispensed Refills Start Date End Date Stat us topiramate (TOPAMAX) 25 MG tablet Take 2 tablets (50 mg total) by mouth 2 (two) times a day for 7 days, THEN 1 tablet (25 mg total) 2 (two) times a day for 7 days, THEN 1 tablet (25 mg total) daily for 7 days. 12/03/2023 12/25/2023 active buPROPion (WELLBUTRIN XL) 150 MG 24 hr tablet Take 150 mg by mouth daily. active cholecalciferol (VITAMIN D3) 1000 UNITS tablet Take 1,000 Units by mouth 4 (four) times a day. active cyanocobalamin (VITAMIN B12) 1000 MCG/ML injection Inject 1,000 mcg into the muscle every 3 (three) months. active fluticasone (FLONASE) 50 MCG/ACT nasal spray spray/apply 1 spray in each nostril 2 (two) times a day. active furosemide (LASIX) 20 MG tablet Take 20 mg by mouth 3 (three) times a week. active meclizine (ANTIVERT) 25 MG tablet Take 25 mg by mouth 4 (four) times a day as needed. active naloxone (NARCAN) 0.4 MG/ML injection Inject 0.4 mg into the vein as needed. active vitamin A capsule 86067 units Take 10,000 Units by mouth 2 (two) times a day. active vitamin B-1 (THIAMINE) 100 MG tablet Take 100 mg by mouth 2 (two) times a day. active Allergies Allergen Reaction Severity Comment Documented Date Source Statu s ROFECOXIB 11/06/2016 [facility] active ASPIRIN [facility] BENZALKONIUM CHLORIDE [facility] CLONAZEPAM [facility] DIPHENOXYLATE [facility] IBUPROFEN [facility] LIDOCAINE [facility] MONTELUKAST [facility] NORTRIPTYLINE [facility] OXYCODONE-ACETAMINOPHEN [facility] PENICILLINS [facility] PREGABALIN [facility] SCOPOLAMINE [facility] SULFAMETHOXAZOLE-TRIMETHOPR IM [facility] Problems Problem Status Onset Date Problem Type Date of Resolution Source Anemia active 2016-11-13 ProblemAct [facility] Vitamin D deficiency, unspecified active EncounterDiagnosisAct [facility] Migraines active EncounterDiagnosisAct [facility]
--- OUTSIDE RECORDS SUMMARY | 2024-12-17 15:06 | XMS_ITS | Clinical Summary ---
Author Organization [facility] Address [address] [place] [address] Phone Care Team Providers Care High Court Justice Name Role Phone Kala López MD Primary Care Provider [phone] Allergies Active Allergy Reactions Criticality Noted Date [...] High 01/28/2010 Other Reaction(s): coded x3 HEART STOPPED X 2 Lamotrigine Shortness of breath,Other,Unknow n High 01/28/2010 [...] like symptoms Sulfamethoxazole-Trimetho prim Hives,Other 01/28/2010 STOMACH PAIN DIARRHEA Other reaction(s): hives Medications ACETAMINOPHEN ORAL Take [...] carbonate (CALCIUM 500 ORAL) Take by mouth. Active cholecalciferol (VITAMIN D-3) 25 mcg (1,000 unit) [...] 3 (three) times a week. 6 Active ipratropium-alb uteroL (DUONEB) 0.5-2.5 mg/3 mL nebulizer solution Inhale [...] mouth 4 (four) times a day. Active vitamin A 3,000 mcg (10,000 unit) [...] [address] capsule Take by mouth. Active Creon 24,000-76,000 -120,000 unit capsule Take by mouth. Active omeprazole (PRILOSEC) 20 mg tablet,delayed release (DR/EC) Take by mouth. Active timoloL (BETIMOL) 0.25 % ophthalmic solution 1-2 drops 2 (two) times a day. Active betamethasone, augmented, (DIPROLENE-AF) 0.05 % cream Apply topically 2 (two) times a day. Active multivitamin with minerals tablet Take 1 tablet by mouth 1 (one) time each day. Active comp.stocking,t high,long,large misc Active galcanezumab-gn lm (Emgality Pen) 120 mg/mL injection pen Inject 1 mL (120 mg total) under the skin every 28 (twenty-eight ) days. 1 mL 3 5 Active tiZANidine (ZANAFLEX) 2 mg tablet 1 po bid 180 tablet 1 5 Active tiZANidine (ZANAFLEX) 2 mg tablet 1 po bid 180 tablet 1 5 11/19/19 25 Discontinu ed(Reorder ) Active Problems Problem Noted Date Diagnosed Date Anemia 11/13/2016 Immunizations Name Administration Dates Next Due Pfizer SARS-CoV-2 COVID-19, mRNA, LNP-S, preservative free 10/25/2021,07/29/2020,07/08/2020 Surgical History Surgery Date Site/Laterality Comments GASTRIC BYPASS PROCEDURE:GASTRIC BYPASS ABDOMINAL ADHESION SURGERY PROCEDURE:ABDOMINAL ADHESION SURGERY Medical History Medical History Date Comments Anemia DX:Anemia GERD (gastroesophageal reflux disease) DX:GERD (gastroesophageal reflux disease) Asthma DX:Asthma 'Iwdqe-asn-wnewy' infant wit h signs of malnutrition DX:'Luwpj-sor-rpvet' with signs of malnutrition Osteoarthritis DX:Osteoarthriti s [...] 80 07/04/2024 2:57 PM EST Temperature 36.7 C (98.1 F) 07/04/2024 2:57 PM EST Respiratory Rate 20 03/25/2024 11:26 AM EST [...] Contact Info) Description 01/02/2025 11:30 AM EDT Telemedicine [facility] [address] [place] [address] Christine Escobar MD [address] [place] [address] Health Maintenance Due Date Last Done Comments Breast Cancer Screening 1969 Hepatitis B Vaccines (1 of 3 - 19+ 3-dose series) 1988 Cervical Cancer Screening: Pap Smear 1990 Zoster Vaccines (1 of 2) 2019 Cholesterol Screening (Lipid Panel) 06/12/2023 Colorectal Cancer Screening: Colonoscopy 06/12/2023 HIV Screening 06/12/2023 Hepatitis C Screening 06/12/2023 Medicare Annual Wellness Visit 06/12/2023 Osteoporosis Screening (Bone Density Screening) 06/12/2023 Social Influencers of Health Screening 06/12/2023 Hypertension/CHF/CAD Annual BMP Blood Test 06/16/2023 COVID-19 Vaccine ( season) 2024 03/13/2022, 10/25/2021, 07/29/2020, Additional history exists Depression Screening 05/14/2024 Influenza Vaccine (#1) 2025 , 03/15/2023, 03/01/2021, Additional history exists DTaP,Tdap,and Td Vaccines (3 - Td or Tdap) 09/28/2025 09/29/2015, 04/16/2007 Pneumococcal Vaccine: 50+ Years Completed 12/20/2023, 12/31/2015, 02/11/2015, Additional history exists HIB Vaccines Aged Out [...] on patient's age to complete this topic Insurance MEDICAID - [place] MEDICARE Care Teams High [address] Justice Relationship Specialty Start Date End Date Kala López MD [address] [place] [address] PCP - General 11/04/16
--- NOTE | 2024-12-17 15:30 | MHC.AU.HA1 ---
Hearing Aid Evaluation Date of Visit: 12/17/24 Historical Information: Description of Hearing: Mild sensorineural hearing loss right ear. Hearing within normal left. Current personal amplification information, if applicable: Phonak Audeo M 50 312 Summary: Seen for evaluation. Interested in new technology, tired of dealing with batteries. Trial with updated, rechargeable, technology recommended to facilitate improved communication. Recommended staying with RITE style. Longtime Phonak wearer, will continue with this hand riveter. Hearing Aid Prescription: Based on the individual?s shared listening needs, communication environments, dexterity, desire for connectivity, and personal preferences, the following prescription for amplification has been made: Right ear: Make, Model, Color: Phonak Audeo I 70 R sand beige Battery Size: Rechargeable Network Support Administrator/Slim Tube: 1M Type of Earmold/Dome/CShell/SlimTip: Small vented dome with retention tail Left ear: NONE Plan of Care: Patient wishes to purchase hearing aids as prescribed Action Taken/Action Needed: Medical Clearance to be requested from PCP/ENT Hearing Instrument Fitting to be scheduled when materials arrive Primary Diagnosis: H90.41 SNHL Unilateral Right Ear, W/Unrestricted Contralateral Hearing Signature: Provider: Eri Morris, CCC-A
== END 2024-12-17 14:41 | disposition home or self-care (01) ==
LOC: HO.SH 14:40
PROVIDERS: Visit Provider Internal Medicine
DX: Z01.118 Encounter for examination of ears and hearing with other abnormal findings (principal); Z46.1 Encounter for fitting and adjustment of hearing aid; H90.41 Sensorineural hearing loss, unilateral, right ear, with unrestricted hearing on the contralateral side
CPT/HCPCS: 92557; 92590

== ENCOUNTER 2025-02-26 10:21 | Outpatient (REF) | payer MEDICARE, MEDICAID, SELFPAY ==
--- NOTE | 2025-02-26 11:14 | MHC.AU.HA2 ---
Hearing Instrument Fitting- Adult- Binaural Date of Visit: 02/26/25 Hearing Instruments Dispensed: Right Ear: Make, Model, Color, Serial Number: Miesha Saleho [id number] SN: [id number] Color: Sand Beige [employer] Repair Warranty: 02/05/2028 [employer] Loss and Damage Warranty: 02/05/2028 [facility] Service Plan: 02/26/2026 Battery Size: Rechargeable Front Of House Manager/Slim Tube: 1M Earmold/Dome/CShell/SlimTip: Small vented dome with retention tail Type of Wax Guard: CeruStop Accessories/Assistive Technology: Phonak [employer] Sweeper Operator CHIDI SN: [id number] Summary of Fitting: Ran feedback analyzer and real ear measures. Adjusted to patient comfort. Increased noise management settings. Reviewed care and use including changing wax guard and dome. Explained rechargeability and manually turning on/off. As a long-time SILVA user, Honey otherwise familiar with general maintenance. Reported she can connect to cellphone herself at home. Did not want to schedule a follow up at this time - will call if problems/concerns arise. Recommendations: Patient does not feel follow-up is necessary at this time. Diagnosis Code(s): Primary Diagnosis: H90.41 SNHL Unilateral Right Ear, W/Unrestricted Contralateral Hearing Signature: Provider: Eri Guevara, [facility]
--- OUTSIDE RECORDS SUMMARY | 2025-02-26 12:50 | XMS_ITS | Continuity of Care Document ---
Author Organization [facility] [address] [place] [address] Phone [phone] Care Team Providers Care Bottle Line Worker Name Role Phone Kala López M.D. 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 01/09/2025 Vitamin E180mg (400 Unit) Capsules 1 by mouth twice daily Kala Branch M.D. 01/09/2025 Ipratropium Bromide0.03% Solution 1 spray each nostril three times a day 1ml Kala Branch M.D. 07/26/2022 Kdgylqlkhq47su Tablets 1 by mouth every day 90tabs Kala Branch M.D. Vitamin A3mg (62500 Ut) Capsules Unknown Folic Kngc236mvt/ML Liquid 1 ml daily Unknown Zyrtec Suvphsr75hf Tablets 1 by mouth bid Unknown Timolol Maleate0.5% Solution Corey Smart Jhrxhsb71kt Tablets Unknown Cmbenznl073ed/ml Solution Auto-Inject Unknown 000 Invdrzghbm1RO/10ML Suspension Maria Victoria Juarez Kogmfipwyf22uz Tablets DR jacques twice daily Unknown Vitamin Q338ghp (1000 Ut) Capsules 4 by mouth every day 100caps Kala Branch M.D. Calcium Citrate Chewy Cahr662-36.5mg-mcg Chewtabs 1 by mouth twice a day Kala Branch M.D. Vitamin C500mg Tablets 1 by mouth 3 times daily Unknown Xycddicv63nb Capsules 1 bid Unknown Etwg964(50Zn) mg Capsules 1 qd Unknown Lidocaine-Prilocaine2. 5-2.5% Cream prn Unknown Oipqfmbtl205tq Tablets 1 by mouth twice daily Unknown Betamethasone Dipropionate0.05% Cream apply twice daily to affected area as needed Unknown Tylenol Extra Duywczek670ba Tablets 2 by mouth twice daily as needed Unknown Duloxetine XFV55ll Caps DR Umanzor take 1 capsule by mouth twice daily Unknown Duloxetine VIT76yw Caps DR Umanzor Take 1 by mouth every day Unknown Dilfx34854-38087Flrm Caps DR Umanzor Take 2 capsules by mouth four times daily Unknown Ventolin HLX111(90Base) mcg/Act Aerosol Use as directed every 4 to 6 hours Kala López M.D. Azelastine HCL (Nasal)0.1% Solution 1 spray to each nostril twice daily Carol Mayberry MD Fluticasone Pvrkkavhns98cub/Act Suspension Two sprays to each nostril twice daily Kala López M.D. Meclizine UQQ98yx Tablets Take 1 tablet four times daily Unknown Betamethasone Valerate0.1% Cream Use daily up to four times Kala Lópze M.D. Orzywatol38-3.5mcg/Act Aerosol 2 puffs twice daily Kala López M.D. Vital Signs Date Vital Result Comment 01/09/2025 3:10pm BP Systolic 130 mmHg BP Diastolic 92 mmHg Heart Rate 88 /min Height 62.5 inches 5'2.50 Weight 212.25 lb BMI (Body Mass Index) 38.2 kg/m2 Results Test Acquired Date Facility Test Result H/L Range Note Creatinine 01/14/2025 [facility] Creatinine 0.68 mg/dL 0.57-1.00 eGFR 103 mL/min/1.73 >59 Calcium 01/14/2025 [facility] Calcium 9.4 mg/dL 8.7-10.2 Vitamin D, 25-Hydroxy 01/14/2025 [facility] Vitamin D, 25-Hydroxy 32.7 ng/mL 30.0-100. 0 1 PTH, Intact 01/14/2025 [facility] PTH, Intact 49 pg/mL 15-65 Albumin 01/14/2025 [facility] Albumin 4.2 g/dL 3.8-4.9 N-Telopeptide, Urine 01/14/2025 [facility] N-Telopeptide 151 nmolBCE Not Estab. Creatinine, Urine 46.2 mg/dL Not Estab. N-Telo/Creat. Ratio 37 nMBCE/mMCr 0-89 Interpretive Guide: See Comment: 2 TSH Rfx on Abnormal to Free T4 01/14/2025 [facility] TSH Rfx on Abnormal to Free T4 1.080 uIU/mL 0.450-4.5 00 Creatinine 07/31/2023 [facility] Creatinine 0.71 mg/dL 0.57-1.00 eGFR 101 mL/min/1.73 >59 Calcium 07/31/2023 [facility] Calcium 9.7 mg/dL 8.7-10.2 Albumin 07/31/2023 [facility] Albumin 4.2 g/dL 3.8-4.9 N-Telopeptide, Urine 07/31/2023 [facility] N-Telopeptide 2092 nmolBCE Not Estab. Creatinine, Urine 129.2 mg/dL Not Estab. N-Telo/Creat. Ratio 183 nMBCE/mMCr High 0-89 Interpretive Guide: See Comment: 3 Albumin 08/14/2022 [facility] Albumin 4.6 GM/DL (3.4-4.8) 25Oh Vitamin D 08/14/2022 [facility] 25Oh Vitamin D 65.3 NG/ML High (20-50) TSH 08/14/2022 [facility] TSH 1.10 uIU/mL (0.4-4.2) Calcium 08/14/2022 [facility] Calcium 9.6 mg/dL (8.6-10.5 ) PTH, Intact 08/14/2022 [facility] PTH, Intact 72 pg/mL High (15-65) TSH With Reflex To FT4 07/26/2022 [facility] TSH With Reflex To FT4 1.50 uIU/mL (0.4-4.2) PTH, Intact 07/26/2022 [facility] PTH, Intact 44 pg/mL (15-65) Calcium 07/26/2022 [facility] Calcium 9.8 mg/dL (8.6-10.5 ) 25Oh Vitamin D 07/26/2022 [facility] 25Oh Vitamin D 60.2 NG/ML High (20-50) Albumin 07/26/2022 [facility] Albumin 4.3 GM/DL (3.4-4.8) TSH 04/13/2022 [facility] TSH <pending> Calcium 04/13/2022 [facility] Calcium <pending> Albumin 04/13/2022 [facility] Albumin <pending> PTH, Intact 04/13/2022 [facility] PTH, Intact <pending> 25Oh Vitamin D 04/13/2022 [facility] 25Oh Vitamin D <pending> 1 Vitamin D deficiency has been defined by the [place] of [employer] and an Endocrine Society practice guideline as a level of serum 25-OH vitamin D less than 20 ng/mL (1,2). The Endocrine Society went on to further define vitamin D insufficiency as a level between 21 and 29 ng/mL (2). 1. IOM ([place] of Medicine). 2010. Dietary reference intakes for calcium and D. [place]: The National Academies Press. 2. Juaquin MF, Carla WHITNEY, Rocio SILVA, et al. Evaluation, treatment, and prevention of vitamin D deficiency: an Endocrine Society clinical practice guideline. JCEM. 2010; 96(7):1911-30. 2 The N-telopeptide an d Creatinine are used [...] measured NTx value is <or=38 nM BCE/mM CAT WAGON OPERATOR, or NTx has decreased >or=30% from baseline.[1] 3. Patients with Paget's Disease of Bone: The probability that treatment is effective after one month is increased when the measured NTx value is within the reference range, or NTx has decreased >or=30% from baseline.[2] 1. Oanh CH, Quintanilla NH, Rocky ADDISON, et al. Am J Med, 102:29-37,1996. (1):M757, 1995. 2. Krysten Sarkar et al. J Bone Min Res.11(1):M75,1995 3 The N-telopeptide an d Creatinine are used [...] measured NTx value is <or=38 nM BCE/mM CAT WAGON OPERATOR, or NTx has decreased >or=30% from baseline.[1] 3. Patients with Paget's Disease of Bone: The probability that treatment is effective after one month is increased when the measured NTx value is within the reference range, or NTx has decreased >or=30% from baseline.[2] 1. Oanh CRESPO, Socorro KIRK, Rocky ADDISON, et al. Am J Med, 102:29-37,1996. (1):M75, 1995. 2. Krysten Sarkar et al. J Bone Min Res.11(1):M757,1995 Procedures Date Code Description Status 07/31/2023 65002 Collection Of Venous Blood B y Venipuncture Completed 07/26/2022 29654 Collection Of Venous Blood B y Venipuncture Completed Medical Devices Description No Information Available Encounters Type Date Location Provider Dx Diagnosis Office Visit 01/09/2025 3:00p Main Office Kala Branch M.D. E04.2 Nontoxic multinodular goiter E21.3 Hyperparathyroidism, unspecified M81.0 Age-related osteopor osis w/o current pathological fracture Assessments Date Code Description Provider 01/09/2025 E04.2 Nontoxic multinodular goiter Kala Branch M.D. 01/09/2025 E21.3 Hyperparathyroidism, unspeci fied Kala Branch M.D. 01/09/2025 M81.0 Age-related oste oporosis without current pathological fracture Kala Branch M.D. Plan of Treatment Future Appointment(s):* 07/14/2025 8:45 am - Kala Branch M.D. at Main Office 07/31/2023 - Kala Branch M.D.* E04.2 Nontoxic multinodular goiter * E21.3 Hyperparathyroidism, unspecified * M81.0 Age-related osteoporosis without current pathological fracture Functional Status Description No Information Available Mental Status Description No Information Available Referrals Description No Information Available
--- OUTSIDE RECORDS SUMMARY | 2025-02-26 12:50 | XMS_ITS | Patient Health Record ---
Author Organization [facility] Address [address] [place] [address] Care Team Providers Care Lean Process Deployment Consultant Name Role Phone Chey DAY, Brooke Alvarez Primary Care Provider Maximo Mackenzie Unavailable [phone] Allergies Allergen (clinical drug ingredient) Drug/Non Drug [...] Status W/U Status Risk Notes Problem Edema (63329112) Edema (782.3) Active confirmed Problem Ingrowing nail (022367743) Ingrowing Nail (703.0) Active confirmed Problem Onychomycosis (828873595) Onychomycosis (110.1) Active confirmed Problem Pain in limb (81620234) Pain in Limb (729.5) Active confirmed Plan Of Treatment Pending Test Test Name Order Date [id number] NAIL, 6 OR MORE 03/13/2012 [id number] NAIL, 6 OR MORE 06/10/2012 [id number] Plate 06/10/2012 Insurance Providers Payer Name Payer Address Payer Phone Subscriber Number Group Number Insured Name Patient Relationship to Insured Coverage Start Date Coverage End Date Medicare National Govt Svcs Inc [address] [place] Garcia [phone] [id number] Honey Quispe Self - patient is the [...]
--- OUTSIDE RECORDS SUMMARY | 2025-02-26 12:50 | XMS_ITS | Clinical Summary ---
Author Organization [facility] Address [address] [place] [address] Care Team Providers Care Factory Manager Name Role Phone HowardBecky GLADIS Primary Care Provider [phone] Source Comments PLEASE NOTE, if this patient [...] exists Imm-Zoster, Recombinant (1 of 2) 2019 Hypertension Screening (#1) 02/09/2024 Alcohol and Drug Screen 05/14/2024 Depression Annual Screen 05/14/2024 Dks-PGZDI-74 (4 - 2024- season) 2025 10/25/2021, 07/29/2020, 07/08/2020 Imm-Influenza (#1) 2025 03/15/2023, 1 , 03/27/2019, Additional history exists Imm-DTaP/Tdap/Td (4 - Td or Tdap) 09/28/2025 09/29/2015, 09/28/2015, 04/16/2007 Cervical Ablation/Cold-Knife Conization Discontinued Cervical Cryotherapy Discontinued Colposcopy Discontinued Endometrial Biopsy Discontinued Excision/Leep Discontinued HPV Genotyping Discontinued Vaginal Pap Discontinued Vulvoscopy Discontinued Insurance [place] MED[place] D[place] [facility] [place] [address] Care Teams Factory Manager Relationship Specialty Start Date End Date Becky Lawrence DMD [address] [place] [address] PCP - General 07/23/20
--- OUTSIDE RECORDS SUMMARY | 2025-02-26 12:51 | XMS_ITS | Encounter Summary ---
Author Organization [facility] Address [address] [place] [address] Care Team Providers Care Sample Maker Name Role Phone Kala López MD Primary Care Provider [phone] Reason for Visit * Reason Onset Date Comments Med Refill 02/25/2025 Encounter Details Date Type Department Care Team ([facility] st Contact Info) Description 02/25/2025 Telephone [facility] 175 [facility] [address] [place] [phone] Christine Escobar MD [address] [place] [address] Social History Tobacco Use Types Packs/Day Years Used Date Smoking Tobacco: Never Smokeless Tobacco: Never Alcohol Use Standard Drinks/Week Comments No 0 (1 standard drink = 0.6 oz pur e alcohol) Comments Unknown Sex and Gender Information Value Date Recorded Sex Assigned at Female 03/25/2024 10:12 AM EST Legal Sex Female 12:17 PM EST Gender Identity Female 03/25/2024 10:12 AM EST Sexual Orientation Choose not to disclose 2023 10:12 AM EST documented as of this encounter Progress Notes * Farhana Vázquez - 02/25/2025 11:26 AM EDT Patient called asking for a refill on their BACLOFEN. Patient says they take 1.5 tablets of the 10mg daily. Patient was also hoping for a refill on their Emgality. Pharmacy; [facility] confirmed. documented in this encounter Plan of Treatment Upcoming Encounters Date Type Department Care Team ([facility] st Contact Info) Description 03/20/2025 3:00 PM EST Office Visit [address] [phone] Rain yDer PA [address] [address] 04/29/2025 9:20 AM EST Procedure visit [address] [phone] Christine Escobar MD [address] [place] [address] documented as of this encounter Visit Diagnoses Not on filedocumented in this encounter Care Teams Sample Maker Relationship Specialty Start Date End Date Kala López MD [address] [place] [address] PCP - General 11/04/16 documented as of this encounter
--- OUTSIDE RECORDS SUMMARY | 2025-02-26 12:51 | XMS_ITS | Clinical Summary ---
Author Organization [facility] Address [address] [place] [address] Phone Care Team Providers Care Software Engineer Backend Name Role Phone Kala López MD Primary Care Provider [phone] Allergies Active Allergy Reactions Criticality Noted Date Comments Alum-Mag Hydroxide-Simeth Rash 05/15/2024 Amitriptyline Unknown 05/15/2024 Aspirin Anaphylaxis High 03/18/2010 Benzalkonium Chloride 11/06/2016 Benzocaine-Phenol Swelling 01/11/2011 JAW AND TONGUE SWELLING Camphor-Menthol Skin Problems,Other 08/14/2022 Clonazepam Other,Swelling Medium 01/28/2010 FACIAL DROP-SLURRED SPEECH Diphenoxylate 11/06/2016 Doxycycline Other 08/13/2023 Dronabinol Amnesia,Other 08/17/2014 Other Reaction(s): slurred [...] day. Active furosemide (LASIX) 20 mg tablet 1 (one) time each day. 6 Active ipratropium-alb uteroL (DUONEB) 0.5-2.5 mg/3 [...] ascorbic acid (VITAMIN C) 500 mg tablet 3 (three) times a day. Active VITAMIN E-400 ORAL Take 400 Units by mouth 2 (two) times a day. Active meclizine (ANTIVERT) 25 mg tablet Take 1 tablet (25 mg total) by mouth 1 (one) time each day if needed for dizziness. 20 tablet 3 4 Active DULoxetine (CYMBALTA) [address] capsule 2 (two) times a day. 4 Active DULoxetine (CYMBALTA) [address] capsule Take by mouth. A ctive Creon 24,000-76,000 -120,000 unit capsule Take by mouth. Activ e omeprazole (PRILOSEC) 20 mg tablet,delayed release (DR/EC) Take by mouth. Active timoloL (BETIMOL) 0.25 % ophthalmic solution 1-2 drops 2 (two) times a day if needed. Active betamethasone, augmented, (DIPROLENE-AF) 0.05 % cream Apply topically 2 (two) times a day. Active multivitamin with minerals liquid Take by mouth 1 (one) time each day. Active comp.stocking,t high,long,large misc Active tiZANidine (ZANAFLEX) 2 mg tablet 1 po bid 180 tablet 1 5 Active zinc sulfate (ZINCATE) 220 mg (50 mg elemental zinc) capsule Take 1 capsule (220 mg total) by mouth 1 (one) time each day. Active sucralfate (CARAFATE) 100 mg/mL suspension Take by mouth 4 (four) times a day. Active azelastine (ASTELIN) 137 mcg (0.1 %) nasal spray Administer into affected nostril(s). Active UNABLE TO FIND Administer into affected nostril(s) 2 (two) times a day. Ipratropium albuterol Active ubrogepant (Ubrelvy) 50 mg tablet TAKE 1 TABLET BY MOUTH TWICE DAILY NEEDED 16 tablet 3 5 Active galcanezumab-gn lm (Emgality Pen) 120 mg/mL injection pen Inject 1 mL (120 mg total) under the skin every 28 (twenty-eight) days. 1 mL 5 5 Active baclofen (LIORESAL) 10 mg tablet 1.5 tab po qd 45 tablet 5 5 Active galcanezumab-gn lm (Emgality Pen) 120 mg/mL injection pen Inject 1 mL (120 mg total) under the skin every 28 (twenty-eight) days. 1 mL 3 5 025 Discontin [facility]ly [facility], or Other Facility Administered Medication Ordered Dose Route Frequency Start Date End Date Status onabotulinumtoxinA (BOTOX) 200 unit injection 200 UnitsIndications:Migraine without aura and without status migrainosus, not intractable 200 Units IM Once 02/11/2025 02/11/2025 Ended Active Problems Problem Noted Date Diagnosed Date Anemia 11/13/2016 Encounters Date Type Department Care Team Description 02/25/2025 Telephone [facility] [address] [phone] Christine Escobar MD 02/11/2025 10:00 AM EDT Procedure visit [facility] 175 [facility] [address] [place] [address] Christine Escobar MD Migraine without aura and without status migrainosus, not intractable (Primary Dx) 01/02/2025 11:30 AM EDT Telemedicine [facility] 175 [facility] [address] [place] [address] Christine Escobar MD Migraine without aura and without status migrainosus, not intractable (Primary Dx); Numbness and tingling of right arm from Last 3 Months Immunizations Immunization Administration Dates Next Due Pfizer SARS-CoV-2 COVID-19, mRNA, LNP-S, preservative free 10/25/2021,07/29/2020,07/08/2020 Surgical History Surgery Date Site/Laterality Comments GASTRIC BYPASS PROCEDURE:GASTRIC BYPASS ABDOMINAL ADHESION SURGERY PROCEDURE:ABDOMINAL ADHESION SURGERY CARPAL TUNNEL RELEASE Left Medical History Medical History Date Comments Anemia DX:Anemia GERD (gastroesophageal reflux disease) DX:GERD (gastroesophageal reflux disease) Asthma DX:Asthma 'Lgjfn-dhx-xhmvt' infant wit h signs of malnutrition DX:'Eypvl-xsi-hvixn' with signs of malnutrition Osteoarthritis DX:Osteoarthriti s [...] Care Team (Late st Contact Info) Description 03/20/2025 3:00 PM EST Office Visit [address] [phone] Rain Dyer PA [address] [phone] 04/29/2025 9:20 AM EST Procedure visit [address] [phone] Christine Escobar MD [address] [place] [address] Health Maintenance Due Date Last Done Comments Breast Cancer Screening 1969 Colorectal Cancer Screening: Colonoscopy 1969 Hepatitis B Vaccines (1 of 3 - 19+ 3-dose series) 1988 Cervical Cancer Screening: Pap Smear 1990 RSV Immunization Adult Patients (1 - Risk 50-74 years 1-dose series) 2019 Zoster Vaccines (1 of 2) 2019 Cholesterol Screening (Lipid Panel) 06/12/2023 HIV Screening 06/12/2023 Hepatitis C Screening 06/12/2023 Medicare Annual Wellness Visit 06/12/2023 Osteoporosis Screening (Bone Density Screening) 06/12/2023 Social Influencers of Health Screening 06/12/2023 Depression Screening 05/14/2024 COVID-19 Vaccine ( season) 2025 03/13/2022, 10/25/2021, 07/29/2020, Additional history exists Influenza Vaccine (#1) 2025 , 03/15/2023, 03/01/2021, Additional history exists DTaP,Tdap,and Td Vaccines (3 - Td or Tdap) 09/28/2025 09/29/2015, 04/16/2007 Hypertension/CHF/CAD Annual BMP Blood Test 01/22/2026 01/22/2025 Pneumococcal Vaccine: 50+ Years Completed 12/20/2023, 12/31/2015, [...] Procedure Name Priority Date/Time Associated Diagnosis Comments COMPLETE BLOOD COUNT Routine 01/22/2025 10:59 AM EDT Chronic kidney disease, unspecified Lymphedema, not elsewhere classified RENAL FUNCTION PANEL Routine 01/22/2025 10:59 AM EDT Chronic kidney disease, unspecified Lymphedema, not elsewhere classified from Last 3 Months Results * (ABNORMAL) Complete blood count (01/22/2025 10:59 AM EDT) WBC 3.9(L) 4.8 - 10.8 K/mcL LAB HEMETOLOGY METHOD 01/22/2025 11:59 AM EDT [facility] RBC 5.00(H) 3.80 - 4.80 M/mcL LAB HEMETOLOGY METHOD 01/22/2025 11:59 AM EDT [facility] Hemoglobin 12.0 11.5 - 16.0 g/dL LAB HEMETOLOGY METHOD 01/22/2025 11:59 AM EDT [facility] Hematocrit 39.2 35.0 - 47.0 % LAB HEMETOLOGY METHOD 01/22/2025 11:59 AM EDT [facility] MCV 77.8(L) 79.0 - 98.0 FL LAB HEMETOLOGY METHOD 01/22/2025 11:59 AM EDT [facility] MCH 23.8(L) 27.0 - 32.0 pcg LAB HEMETOLOGY METHOD 01/22/2025 11:59 AM EDT [facility] MCHC 30.6(L) 32.0 - 37.0 g/dL LAB HEM[facility]OLOGY [facility] RDW 13.0 11.0 - 15.0 % LAB HEMETOLOGY METHOD 01/22/2025 11:59 AM EDT [facility] Platelets 260 130 - 400 K/mcL LAB HEMETOLOGY METHOD 01/22/2025 11:59 AM EDT [facility] MPV 9.0 7.0 - 11.0 FL LAB HEMETOLOGY METHOD 01/22[facility]25 [facility] NRBC 0.0 <1.0 % LAB HEMETOLOGY METHOD 01/22/2025 11:59 AM EDT [facility] NRBC Absolute 0.00 <0.10 K/mcL LAB HEMETOLOGY METHOD 01/22/2025 11:59 AM EDT [facility] Blood Venous blood specimen / Unknown Venipuncture / Unknown 01/22/2025 10:59 AM EDT 01/22/2025 11:46 AM EDT us Selvin Arce MD LAB BLOOD ORDERABLES Final Res ult [facility] [address] [place] [address], * Renal function panel (01/22/2025 10:59 AM EDT) Sodium 140 133 - 145 mmol/L LAB CHEMISTRY METHOD 01/22/2025 2:[address] [facility] Potassium 4.1 3.5 - 5.5 mmol/L LAB CHEMISTRY METHOD 01/22/2025 2:[address] [facility] Chloride 104 96 - 110 mmol/L LAB CHEMISTRY METHOD 01/22/2025 2:[address] [facility] CO2 32 21 - 32 mmol/L LAB CHEMISTRY METHOD 01/22/2025 2:[address] [facility] Anion Gap 4 3 - 11 LAB CHEMISTRY METHOD 01/22/2025 2:[address] [facility] Glucose 86 70 - 100 mg/dL LAB CHEMISTRY METHOD 01/22/2025 2:[address] [facility] BUN 22 5 - 25 mg/dL LAB CHEMISTRY METHOD 01/22/2025 2:[address] [facility] Creatinine 0.70 0.50 - 1.10 mg/dL LAB CHEMISTRY METHOD 01/22/2025 2:[address] [facility] eGFR 102 >=60 mL/min/1. 73m2 LAB CHEMISTRY METHOD 01/22/2025 2:[address] [facility] Comment:Calculation based on the Chronic Kidney Disease Epidemiology Collaboration (CKD-EPI) equation refit without adjustment for race. BUN/Creatinine Ratio 31.4 LAB CHEMISTRY METHOD 01/22/2025 2:[address] [facility] Albumin 3.8 3.2 - 5.0 g/dL LAB CHEMISTRY METHOD 01/22/2025 2:[address] [facility] Calcium 9.2 8.5 - 10.5 mg/dL LAB CHEMISTRY METHOD 01/22/2025 2:48 PM EDT [facility] Phosphorus 4.1 2.5 - 4.5 mg/dL LAB CHEMISTRY METHOD 01/22/2025 2:[address] [facility] Blood Venous blood specimen / Unknown Venipuncture / Unknown 01/22/2025 10:59 AM EDT 01/22/2025 11:45 AM EDT us Selvin Arce MD LAB BLOOD ORDERABLES Final Res ult [facility] [address] [place] [address], [place] [phone] from Last 3 Months Insurance MEDICARE MEDICAID [place] Care Teams Software Engineer Backend Relationship Specialty Start Date End Date Kala López MD [address] [place] [address] PCP - General 11/04/16
--- OUTSIDE RECORDS SUMMARY | 2025-02-26 12:51 | XMS_ITS | Clinical Summary ---
Author Organization [facility] Address [address] [place] [address] Care Team Providers Care Pitch Flaker Name Role Phone Kala López MD Primary Care Provider [phone]- [phone] Allergies Active Allergy Reactions Criticality Noted Date [...] 4 (four) times a day. 0 Active Rquqawl-Veqsnvmao-Mfo munson D (CALCIUM 500 PO) Take by [...] as needed. 0 Active vitamin A capsule 04682 units Take 10,000 Units by mouth 2 [...] of 2) 2019 COVID-19 Vaccine ( season) 2025 10/25/2021, 07/29/2020, 07/08/2020 Influenza Vaccine (#1) 2025 3, 03/01/2021, 03/27/2019, Additional history exists DTap / Tdap / Td (3 - Td or Tdap) 09/28/2025 09/29/2015, 04/16/2007 Pneumococcal Vaccine Aged Out 12/31/2015, 02/11/2015, 02/11/2015, Additional history exists No longer eligible based on patient's age to complete this topic RSV Ped < 20 months Aged Out No longe r eligible based on patient's age to complete this topic Care Teams Pitch Flaker Relationship Specialty Start Date End Date Kala López MD [address] [place] [phone] PCP - General Internal Medicine 11/04/16
== END 2025-02-26 10:22 | disposition home or self-care (01) ==
LOC: HO.HAP 10:21
PROVIDERS: Visit Provider Internal Medicine
DX: Z46.1 Encounter for fitting and adjustment of hearing aid (principal); H90.41 Sensorineural hearing loss, unilateral, right ear, with unrestricted hearing on the contralateral side
CPT/HCPCS: V5011; V5020; V5241; V5257

== ENCOUNTER 2025-03-04 10:54 | Outpatient (REF) | payer MEDICARE, MEDICAID, SELFPAY ==
--- OUTSIDE RECORDS SUMMARY | 2025-03-04 14:28 | XMS_ITS | Patient Health Record ---
Author Organization [facility] Address [address] [place] [address] Care Team Providers Care Machine Hostler Name Role Phone Chey DAY, rBooke Alvarez Primary Care Provider Maximo Mackenzie Unavailable [phone] Allergies Allergen (clinical drug ingredient) Drug/Non Drug [...] Status W/U Status Risk Notes Problem Edema (31289130) Edema (782.3) Active confirmed Problem Ingrowing nail (657026075) Ingrowing Nail (703.0) Active confirmed Problem Onychomycosis (375083132) Onychomycosis (110.1) Active confirmed Problem Pain in limb (15067147) Pain in Limb (729.5) Active confirmed Plan Of Treatment Pending Test Test Name Order Date [id number] NAIL, 6 OR MORE 03/13/2012 [id number]-FSOEXID NAIL, 6 OR MORE 06/10/2012 25022-Tqtzruqc Plate 06/10/2012 Insurance Providers Payer Name Payer Address Payer Phone Subscriber Number Group Number Insured Name Patient Relationship to Insured Coverage Start Date Coverage End Date Medicare National [employer]t [employer] [address] [place] [phone] [id number] Honey Quispe Self - patient is the [...]
--- OUTSIDE RECORDS SUMMARY | 2025-03-04 14:29 | XMS_ITS | Continuity of Care Document ---
Author Organization [facility] [address] [place] [address] Phone [phone] Care Team Providers Care Punch Press Feeder Name Role Phone Kala López M.D. Care Team Information Rec eiver [phone] Problems Active Problems Provider Date Non-toxic multinodular goiter Kala man M.D. Onset: 07/26/2022 Osteoporosis Kala Branch M.D. Ons et: 07/26/2022 Hyperparathyroidism Kala Branch M.D. Onset: 07/26/2022 Migraine Kala Bracnh M.D. 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 07/26/2022 Ldxzqbmrgp24xd Tablets 1 by mouth every day 90tabs Kala Branch M.D. Vitamin A3mg (06774 Ut) Capsules Unknown Folic Nnia844qxo/ML Liquid 1 ml daily Unknown Zyrtec Wrpvubc49ry Tablets 1 by mouth bid Unknown Timolol Maleate0.5% Solution Corey Smart Ojdaips07rn Tablets Unknown Tdkawnro303he/ml Solution Auto-Inject Unknown 000 Lbusctovdb4ZH/10ML Suspension Maria Victoria Juarez Mpqomhgcja66pd Tablets DR jacques twice daily Unknown Vitamin F109mzk (1000 Ut) Capsules 4 by mouth every day 100caps Kala Branch M.D. Calcium Citrate Chewy Tnef791-37.5mg-mcg Chewtabs 1 by mouth twice a day Kala Branch M.D. Vitamin C500mg Tablets 1 by mouth 3 times daily Unknown Ecvdtufz20sp Capsules 1 bid Unknown Rpop942(50Zn) mg Capsules 1 qd Unknown Lidocaine-Prilocaine2. 5-2.5% Cream prn Unknown Xjwmyaadt602ns Tablets 1 by mouth twice daily Unknown Betamethasone Dipropionate0.05% Cream apply twice daily to affected area as needed Unknown Tylenol Extra Pvrzbikn043qo Tablets 2 by mouth twice daily as needed Unknown Duloxetine HRC35xg Caps DR Umanzor take 1 capsule by mouth twice daily Unknown Duloxetine NUJ11ej Caps DR Umanzor Take 1 by mouth every day Unknown Nuvtz08898-13481Trpk Caps DR Umanzor Take 2 capsules by mouth four times daily Unknown Ventolin NJB415(90Base) mcg/Act Aerosol Use as directed every 4 to 6 hours Kala López M.D. Azelastine HCL (Nasal)0.1% Solution 1 spray to each nostril twice daily Carol Mayberry MD Fluticasone Ohpvxeepez79avw/Act Suspension Two sprays to each nostril twice daily Kala López M.D. Meclizine SUY61me Tablets Take 1 tablet four times daily Unknown Betamethasone Valerate0.1% Cream Use daily up to four times Kala López M.D. Wgxdyslko70-1.5mcg/Act Aerosol 2 puffs twice daily Kala López [...] Interpretive Guide: See Comment: 3 Albumin 08/14/2022 [facility] Albumin 4.6 GM/DL (3.4-4.8) 25Oh Vitamin D 08/14/2022 [facility] 25Oh Vitamin D 65.3 NG/ML High (20-50) TSH 08/14/2022 [facility] TSH 1.10 uIU/mL (0.4-4.2) Calcium 08/14/2022 [facility] Calcium 9.6 mg/dL (8.6-10.5 ) PTH, Intact 08/14/2022 [facility] PTH, Intact 72 pg/mL High (15-65) TSH With Reflex To FT4 07/26/2022 [facility] TSH With Reflex To FT4 1.50 uIU/mL (0.4-4.2) PTH, Intact 07/26/2022 [facility] PTH, Intact 44 pg/mL (15-65) Calcium 07/26/2022 [facility] Calcium 9.8 mg/dL (8.6-10.5 ) 25Oh Vitamin D 07/26/2022 [facility] 25Oh Vitamin D 60.2 NG/ML High (20-50) Albumin 07/26/2022 [facility] Albumin 4.3 GM/DL (3.4-4.8) TSH 04/13/2022 [facility] TSH <pending> Calcium 04/13/2022 [facility] Calcium <pending> Albumin 04/13/2022 [facility] Albumin <pending> PTH, Intact 04/13/2022 [facility] PTH, Intact <pending> 25Oh Vitamin D 04/13/2022 [facility] 25Oh Vitamin D <pending> 1 Vitamin D deficiency has been defined by the [place] [employer] and an Endocrine Society practice guideline as a level of serum 25-OH vitamin D less than 20 ng/mL (1,2). The Endocrine Society went on to further define vitamin D insufficiency as a level between 21 and 29 ng/mL (2). 1. IOM ([place] [employer]). 2010. Dietary reference intakes for [...] measured NTx value is <or=38 nM BCE/mM BUILDING CODE ADMINISTRATOR, or NTx has decreased >or=30% from baseline.[1] [...] measured NTx value is <or=38 nM BCE/mM BUILDING CODE ADMINISTRATOR, or NTx has decreased >or=30% from baseline.[1] [...] Res.11(1):M757,1995 Procedures Date Code Description Status 07/31/2023 33026 Collection Of Venous Blood B y Venipuncture Completed 07/26/2022 60221 Collection Of Venous Blood B y Venipuncture [...]
--- OUTSIDE RECORDS SUMMARY | 2025-03-04 14:29 | XMS_ITS | Clinical Summary ---
Author Organization [facility] Address [address] [place] [address] Phone Care Team Providers Care Manager Procurement Name Role Phone Kala López MD Primary Care Provider [phone] Allergies Active Allergy Reactions Criticality Noted Date [...] days. 1 mL 3 5 025 Discontin [facility], or Other Facility Administered Medication Ordered Dose Route Frequency Start Date End Date Status onabotulinumtoxinA (BOTOX) 200 unit injection 200 UnitsIndications:Migraine without aura and without status migrainosus, not intractable 200 Units IM Once 02/11/2025 02/11/2025 Ended Active Problems Problem Noted Date Diagnosed Date Anemia 11/13/2016 Encounters Date Type Department Care Team Description 02/25/2025 Telephone [facility] [address] [address] Christine Escobar MD 02/11/2025 10:00 AM EDT Procedure visit [facility] [address] [facility] [address] [place] [address] Christine Escobar MD Migraine without aura and without status migrainosus, not intractable (Primary Dx) 01/02/2025 11:30 AM EDT Telemedicine [facility] [address] [facility] [address] [place] [address] Christine Escobar MD Migraine without [...] disease) DX:GERD (gastroesophageal reflux disease) Asthma DX:Asthma 'Xhxea-cbq-cvneo' infant wit h signs of malnutrition DX:'Cmfrz-vjd-tttwq' with signs of malnutrition Osteoarthritis DX:Osteoarthriti s [...] Description 03/20/2025 3:00 PM EST Office Visit [address] [phone] Rain Dyer PA [address] [id number] 04/29/2025 9:20 AM EST Procedure visit [address] [address] Christine Escobar MD [address] [place] [address] Health Maintenance Due Date Last Done Comments [...] LAB HEMETOLOGY METHOD 01/22/2025 11:59 AM EDT [facility] RBC 5.00(H) 3.80 - 4.80 M/mcL LAB HEMETOLOGY METHOD 01/22/2025 11:59 AM EDT [facility] Hemoglobin 12.0 11.5 - 16.0 g/dL LAB HEMETOLOGY METHOD 01/22/2025 11:59 AM EDT [facility] Hematocrit 39.2 35.0 - 47.0 % LAB HEMETOLOGY METHOD 01/22/2025 11:59 AM EDT [facility] MCV 77.8(L) 79.0 - 98.0 FL LAB HEMETOLOGY METHOD 01/22/2025 11:59 AM EDT [facility] MCH 23.8(L) 27.0 - 32.0 pcg LAB HEMETOLOGY METHOD 01/22/2025 11:59 AM EDT [facility] MCHC 30.6(L) 32.0 - 37.0 g/dL LAB [facility]ETOLOGY [facility] RDW 13.0 11.0 - 15.0 % LAB HEMETOLOGY METHOD 01/22/2025 11:59 AM EDT [facility] Platelets 260 130 - 400 K/mcL LAB HEMETOLOGY METHOD 01/22/2025 11:59 AM EDT [facility] MPV 9.0 7.0 - 11.0 FL LAB H[facility]ETOLOGY METHOD [facility] NRBC 0.0 <1.0 % LAB HEMETOLOGY METHOD 01/22/2025 11:59 AM EDT [facility] NRBC Absolute 0.00 <0.10 K/mcL LAB HEMETOLOGY METHOD 01/22/2025 11:59 AM EDT [facility] Blood Venous blood specimen / Unknown Venipuncture / Unknown 01/22/2025 10:59 AM EDT 01/22/2025 11:46 AM EDT us Selvin Arce MD LAB BLOOD ORDERABLES Final Res ult [facility] [address] [place] [address], * Renal function panel (01/22/2025 10:59 AM EDT) Sodium 140 133 - 145 mmol/L LAB CHEMISTRY METHOD 01/22/2025 2:48 PM [facility] Potassium 4.1 3.5 - 5.5 mmol/L LAB CHEMISTRY METHOD 01/22/2025 2:48 PM [facility] Chloride 104 96 - 110 mmol/L LAB CHEMISTRY METHOD 01/22/2025 2:48 PM [facility] CO2 32 21 - 32 mmol/L LAB CHEMISTRY METHOD 01/22/2025 2:48 PM [facility] Anion Gap 4 3 - 11 LAB CHEMISTRY METHOD 01/22/2025 2:48 PM [facility] Glucose 86 70 - 100 mg/dL LAB CHEMISTRY METHOD 01/22/2025 2:48 PM [facility] BUN 22 5 - 25 mg/dL LAB CHEMISTRY METHOD 01/22/2025 2:48 PM [facility] Creatinine 0.70 0.50 - 1.10 mg/dL LAB CHEMISTRY METHOD 01/22/2025 2:48 PM [facility] eGFR 102 >=60 mL/min/1. 73m2 LAB CHEMISTRY METHOD 01/22/2025 2:48 PM [facility] Comment:Calculation based on the Chronic Kidney Disease Epidemiology Collaboration (CKD-EPI) equation refit without adjustment for race. BUN/Creatinine Ratio 31.4 LAB CHEMISTRY METHOD 01/22/2025 2:48 PM [facility] Albumin 3.8 3.2 - 5.0 g/dL LAB CHEMISTRY METHOD 01/22/2025 2:48 PM [facility] Calcium 9.2 8.5 - 10.5 mg/dL LAB CHEMISTRY METHOD 01/22/2025 2:48 PM EDT [facility] Phosphorus 4.1 2.5 - 4.5 mg/dL LAB CHEMISTRY METHOD 01/22/2025 2:48 PM EDT [facility] Blood Venous blood specimen / Unknown Venipuncture / Unknown 01/22/2025 10:59 AM EDT 01/22/2025 11:45 AM EDT us Selvin Arce MD LAB BLOOD ORDERABLES Final Res ult [facility] [address] [place] [address], [place] [phone] from Last 3 Months Insurance MEDICARE [place]ICAID [place] Care Teams Manager Procurement Relationship Specialty Start Date End Date Kala López MD [address] [place] [address] PCP - General 11/04/16
--- OUTSIDE RECORDS SUMMARY | 2025-03-04 14:29 | XMS_ITS | Clinical Summary ---
Author Organization [facility] Address [address] [place] [address] Care Team Providers Care Grocery Clerk Name Role Phone Kala López MD Primary Care Provider [phone] Allergies Active Allergy Reactions Criticality Noted Date [...] 4 (four) times a day. 0 Active Yccwipj-Orvjhnfos-Iix munson D (CALCIUM 500 PO) Take by [...] as needed. 0 Active vitamin A capsule 96800 units Take 10,000 Units by mouth 2 [...] age to complete this topic Care Teams Grocery Clerk Relationship Specialty Start Date End Date Kala López MD [address] [place] [address] PCP - General Internal Medicine 11/04/16
== END 2025-03-04 10:55 | disposition home or self-care (01) ==
LOC: HO.HAP 10:54
PROVIDERS: Visit Provider Internal Medicine
DX: Z13.89 Encounter for screening for other disorder (principal)

== ENCOUNTER 2025-03-18 09:02 | Outpatient (AMB) | payer MEDICARE, MEDICAID, SELFPAY ==
--- NOTE | 2025-03-18 09:16 | MHC.PC.OV ---
Vital Signs 03/18/25 09:18 Height 5 ft 4 in Weight 220 lb BMI 37.8 BP 112/80 Blood Pressure Location Lt brachial Position Sitting Respiration 16 Pulse 86 Pulse Source Pulse Oximeter Temp 97.1 F Temp Source Temporal Artery Scan Pulse Oximetry (%) 98 Oxygen Delivery Method Room Air Intake Visit Reasons: Follow Up, reestablish care [employer] Home General Manager Required: No Accompanied by: Self / Same As Patient Allergies acetaminophen (From Percocet) Allergy (Verified 03/18/25 09:17) Hives aluminum hydroxide (From Mylanta) Allergy (Verified 03/18/25 09:17) Hives amitriptyline Allergy (Verified 03/18/25 09:17) Hives aspirin Allergy (Verified 03/18/25 09:17) Anaphylaxis bacitracin (From Neosporin ([id number])) Allergy (Verified 03/18/25 09:17) Hives bismuth subsalicylate (From Maalox Total Relief (bismuth)) Allergy (Verified 03/18/25 09:17) Hives calcium carbonate (From Mylanta) Allergy (Verified 03/18/25 09:17) Hives camphor (From [place] Unity) Allergy (Verified 03/18/25 09:17) Hives chlordiazepoxide (From Librium) Allergy (Verified 03/18/25 09:17) Hives clonazepam Allergy (Verified 03/18/25 09:17) Unknown doxycycline Allergy (Verified 03/18/25 09:17) Hives dronabinol (From Marinol) Allergy (Verified 03/18/25 09:17) Unknown duloxetine (From Cymbalta) Allergy (Verified 03/18/25 09:17) Hives heparin Allergy (Verified 03/18/25 09:17) Unknown hydromorphone (From Dilaudid) Allergy (Verified 03/18/25 09:17) Hives ibuprofen (From Motrin) Allergy (Verified 03/18/25 09:17) Hives lamotrigine (From Lamictal) Allergy (Verified 03/18/25 09:17) Unknown lidocaine Allergy (Verified 03/18/25 09:17) Hives magnesium (From Mylanta) Allergy (Verified 03/18/25 09:17) Hives magnesium hydroxide (From Mylanta) Allergy (Verified 03/18/25 09:17) Hives menthol (From [place]) Allergy (Verified 03/18/25 09:17) Hives mometasone furoate (From Asmanex Twisthaler) Allergy (Verified 03/18/25 09:17) Hives neomycin (From Neosporin ([id number]-[id number])) Allergy (Verified 03/18/25 09:17) Hives nortriptyline Allergy (Verified 03/18/25 09:17) Hives ondansetron (From Zofran) Allergy (Verified 03/18/25 09:17) Hives oxycodone (From Percocet) Allergy (Verified 03/18/25 09:17) Hives Penicillins (PCN) Allergy (Verified 03/18/25 09:17) Anaphylaxis polymyxin B (From Neosporin ([id number])) Allergy (Verified 03/18/25 09:17) Hives scopolamine Allergy (Verified 03/18/25 09:17) Unknown simethicone (From Mylanta) Allergy (Verified 03/18/25 09:17) Hives sulfamethoxazole (From Bactrim) Allergy (Verified 03/18/25 09:17) Hives trimethoprim (From Bactrim) Allergy (Verified 03/18/25 09:17) Hives Medication List - Last Reconciled 03/18/25 by Kala López MD albuterol sulfate 90 mcg/actuation (Ventolin HFA) 2 puffs inhalation Q6H PRN ascorbic acid (vitamin C) mg PO TID azelastine intranasal baclofen 15 mg PO DAILY budesonide-formoterol 80-4.5 mcg/actuation (Symbicort) 1 inh inhalation BID PRN cetirizine (Zyrtec) 10 mg PO BID cholecalciferol (vitamin D3) 25 mcg PO QID desoximetasone 0.25% 1 appl topical DAILY PRN diphenoxylate-atropine 2.5-0.025 mg 1 tab PO QID duloxetine 60 mg PO DAILY duloxetine 20 mg PO BID epinephrine 1 mg IM DAILY fluticasone propionate 50 mcg/actuation sprays intranasal DAILY folic acid 2 mg PO DAILY furosemide 20 mg PO DAILY galcanezumab-gnlm (Emgality Pen) mg subcut ipratropium bromide intranasal tjwxvu-bpajatlt-qiqgcgt (pork) 24,000-76,000 -120,000 unit (Creon) 2 caps PO QID magnesium citrate,mag oxide mg PO BID meclizine 25 mg PO QID mecobalamin (vitamin B12) 1,000 mcg PO DAILY multivitamin with minerals 10 mL PO BID omeprazole 20 mg PO BID oxazepam 30 mg PO BID sucralfate 10 mL PO QID thiamine HCl (vitamin B1) 100 mg PO DAILY timolol maleate 0.5% drps ophthalmic (eye) DAILY ubrogepant (Ubrelvy) mg PO vitamin E mixed units PO BID zinc sulfate 25 mg PO DAILY Tobacco use date assessed: 03/18/25 Dental Screening Dental Screen Date: 03/18/25 Did you have a dental visit in the last 12 months?: Yes Did you have a dental problem in the last 6 months where you did not have access to dental care?: No Was dental information given to patient?: Patient has dentist HPI HPI Comments History of Present Illness Details The patient is a 54-year-old female presenting to [facility] with multiple chronic conditions and recent health concerns. Lumbar pain: Diagnosed after a fall about a month ago; managed with trigger point injections by [facility]. Sciatica: Chronic issues possibly worsened after fall; requires further intervention and scheduled treatment in April. Anemia: Managed at [facility]; awaiting recent lab results from this Sunday. GERD-stable Depression/anxiety-stable Asthma: Managed with medication; follow-up with specialist in April planned. Hypertension: Blood pressure read between 134/80 and 134/96; ongoing management discussed. Carpal Tunnel Syndrome: Carpal tunnel release surgery was done on December 04; continued therapy due to soreness. Migraine: Receiving Botox treatment; initial session well tolerated, upcoming sessions scheduled. Lymphedema: Set to see a specialist at [facility] in April; current facility at [place] lacks a doctor. Potassium deficiency: Attributed to change in Lasix dosing; requires monitoring. Established with renal Pancreatic Cysts: Patient under evaluation. Sees [facility] GI Dr. Cameron Avery Fibromyalgia- unchanged Cervical radiculopathy- unchanged Allergies: Significant reactions post-allergy shots; has specific triggers (nuts, citrus, pollen, animals). Pain in AC joint: Managed by [facility] Surgical History: - Carpal tunnel release surgery on December 04 Diagnostic Results: - Imaging revealed new pancreatic and bladder cysts- done at outside facility- patient to release records Review of Systems - Respiratory: Reports controlled asthma. - Cardiovascular: no chest pain, no sob - Gastrointestinal: no abdominal pain - Allergies/Immunologic: Reports allergies to nuts, citrus, pollen, animal dander, and reactions to allergy shots. - Musculoskeletal: Reports lower back pain. - Neurological: Reports migraines; receiving Botox treatment. Physical Exam - Respiratory- Clear lung sounds - Cardiovascular- Regular rhythm, audible but low-grade murmur - GI: SNTND, +BS - Musculoskeletal- mild tenderness in AC joint - Neurological- No acute deficits noted Assessment and Plan 1. Back pain - Continue physical therapy; plan for additional imaging if needed. 2. Sciatica - Monitor and schedule April treatment. 3. Anemia - Await recent lab results and adjust as needed per hematology 4. Asthma - Maintain current therapy; follow up in April. 5. Hypertension - Record home blood pressure readings; reassess management. 6. Carpal Tunnel Syndrome - Monitor symptoms; discuss possible future injections. 7. Migraine - Continue Botox; evaluate response and adjust timing. 8. Lymphedema - Await April specialist review. 9. Potassium deficiency - Monitor regularly; adjust as required. 10. Pancreatic Cysts - Continue monitoring; plan differential consideration. 11. Allergies - evaluate allergy shot dosing. Will be seeing Dr. Mayberry, currently getting injections at [facility] 13. Pain in AC joint - Continue current therapy; anticipate reassessment with pain management 14. Depression/anxiety- continue current regimen 15. Fibromyalgia- managed by Dr. Brink [facility] Discussion Notes I discussed with the patient the management plans for each of her chronic conditions, ensuring she understands the approaches and follow-up necessary. Anemia management will be guided by lab results awaiting evaluation. Ongoing asthma control and hypertension management were reemphasized, with the continued home monitoring of blood pressure. Carpal tunnel symptoms following surgery are set for assessment, with injections as possible remedies for recurring symptoms. Migraine relief via Botox showed a positive initial response; further sessions are planned. Appointments for lymphedema with a new specialist, April, were confirmed. Potassium levels will be monitored in response to medication regimen alterations. Follow up in 4 months Patient Instructions - Continue asthma medication and avoid triggers. - Check blood pressure regularly and note the readings. - Attend scheduled appointments for Botox migraine treatments. - Prepare for Titi appointments at [facility] and for lymphedema. - Be vigilant of any allergy symptoms. - Reach out if any symptoms aggravate or new concerns arise. [facility] Medical History (Updated 03/18/25 @ 17:02 by Kala López MD) CKD (chronic kidney disease) Anxiety Fibromyalgia Anemia GERD (gastroesophageal reflux disease) Cervical radiculopathy Depression Asthma Migraines Lymphedema Surgical History (Updated 03/18/25 @ 09:55 by Kala López MD) History of carpal tunnel surgery of left wrist History of repair of hiatal hernia H/O laparoscopy Gastric bypass status for obesity H/O hernia repair History of colonoscopy (~07/07/15) Family History (Updated 03/18/25 @ 09:58 by Kala López MD) Other Atrial fibrillation Social History Housing: Apartment Patient Tobacco Use Status: Never used Tobacco e-Cigarette/Vaping Use: Never Used service: No Current occupational status: disabled Questionnaire AUDIT C Alcohol Use Questionnaire (AUDIT-C) 1. How often do you have a drink containing alcohol?: Never 3. How often do you have six or more drinks on one occasion?: Never Total Score: 0 Physical exam (Primary Care) Vital Signs: Last Vital Signs Temp 97.1 F 03/18/25 09:18 Pulse 86 03/18/25 09:18 Resp 16 03/18/25 09:18 BP 112/80 03/18/25 09:18 Pulse Ox 98 03/18/25 09:18 Oxygen Delivery Method Room Air 03/18/25 09:18 BMI result Body Mass Index 37.8 Tobacco/Smoking Status: Tobacco use Status Tobacco use date assessed 03/18/25 03/18/25 09:41 Patient Tobacco Use Status Never used Tobacco 03/18/25 09:41 e-Cigarette/Vaping Use Never Used 03/18/25 09:41 Coding Level of Care Code Est Pt Level 4 (05833) Complex EM visit Add On G2211 Diagnoses Anemia, unspecified type D64.9 Anemia type: unspecified type Migraine without status migrainosus, not intractable, unspecified migraine type G43.909 Migraine type: unspecified Intractability: not intractable Status migrainosus presence: without status migrainosus Gastroesophageal reflux disease, unspecified whether esophagitis present K21.9 Esophagitis presence: esophagitis presence not specified Lymphedema I89.0 Anxiety F41.9 Fibromyalgia M79.7 Cervical radiculopathy M54.12 Depression, unspecified depression type F32.A Depression Type: unspecified Mild persistent asthma without complication J45.30 Asthma severity: mild Asthma persistence: persistent Asthma complication type: uncomplicated Assessment & Plan Assessment & Plan (1) Anemia: Code(s): D64.9 - Anemia, unspecified Category: Medical Qualifiers: Anemia type: unspecified type Qualified Code(s): D64.9 - Anemia, unspecified (2) Migraines: Code(s): G43.909 - Migraine, unspecified, not intractable, without status migrainosus Category: Medical Qualifiers: Migraine type: unspecified Intractability: not intractable Status migrainosus presence: without status migrainosus Qualified Code(s): G43.909 - Migraine, unspecified, not intractable, without status migrainosus (3) GERD (gastroesophageal reflux disease): Code(s): K21.9 - Gastro-esophageal reflux disease without esophagitis Category: Medical Qualifiers: Esophagitis presence: esophagitis presence not specified Qualified Code(s): K21.9 - Gastro-esophageal reflux disease without esophagitis (4) Lymphedema: Code(s): I89.0 - Lymphedema, not elsewhere classified Category: Medical (5) Anxiety: Code(s): F41.9 - Anxiety disorder, unspecified Category: Medical (6) Fibromyalgia: Code(s): M79.7 - Fibromyalgia Category: Medical (7) Cervical radiculopathy: Code(s): M54.12 - Radiculopathy, cervical region Category: Medical (8) Depression: Code(s): F32.A - Depression, unspecified Category: Medical Qualifiers: Depression Type: unspecified Qualified Code(s): F32.A - Depression, unspecified (9) Asthma: Code(s): J45.909 - Unspecified asthma, uncomplicated Category: Medical Qualifiers: Asthma severity: mild Asthma persistence: persistent Asthma complication type: uncomplicated Qualified Code(s): J45.30 - Mild persistent asthma, uncomplicated Plan - Monitor Sciatica; April treatment scheduled. - Await lab results for anemia - Maintain asthma management; April follow-up. - Monitor blood pressure; adjust therapy based on readings. - Proceed with Botox for migraine; monitor response. - Prepare for lymphedema specialist consultation in April. - Regular potassium monitoring - Follow up with GI re evaluation for pancreatic cysts, also follow up with ordering physician re bladder cysts - Manage allergy shot reactions; review dosing with algebra teacher Orders: Orders Comprehensive Met. Panel Today I89.0 - Lymphedema, not elsewhere classified, M79.7 - Fibromyalgia, N18.9 - Chronic kidney disease, unspecified Magnesium Today I89.0 - Lymphedema, not elsewhere classified, M79.7 - Fibromyalgia, N18.9 - Chronic kidney disease, unspecified
[2025-03-18 09:18] VITALS: BP 112/80; PULSE 86; RESP 16; TEMP 36.2; O2SAT 98; BMI 37.8
--- OUTSIDE RECORDS SUMMARY | 2025-03-18 09:36 | XMS_ITS | Patient Health Record ---
Author Organization [facility] Address [address] [place] [address] Care Team Providers Care Operations Staff Specialist Security Name Role Phone Chey DAY, Brooke Alvarez Primary Care Provider Maximo Mackenzie Unavailable [phone] Allergies Allergen (clinical drug ingredient) Drug/Non Drug [...] Status W/U Status Risk Notes Problem Edema (41118692) Edema (782.3) Active confirmed Problem Ingrowing nail (116250333) Ingrowing Nail (703.0) Active confirmed Problem Onychomycosis (921306212) Onychomycosis (110.1) Active confirmed Problem Pain in limb (00979013) Pain in Limb (729.5) Active confirmed Plan Of Treatment Pending Test Test Name Order Date [id number] NAIL, 6 OR MORE 03/13/2012 [id number] NAIL, 6 OR MORE 06/10/2012 [id number] Plate 06/10/2012 Insurance Providers Payer Name Payer Address Payer Phone Subscriber Number Group Number Insured Name Patient Relationship to Insured Coverage Start Date Coverage End Date Medicare National [employer]t [employer] [address] [place] [phone] [id number] Honey Quispe Self - patient is the [...]
--- OUTSIDE RECORDS SUMMARY | 2025-03-18 09:36 | XMS_ITS | Continuity of Care Document ---
Author Organization [facility] [address] [place] [address] Phone [phone] Care Team Providers Care Master Control Supervisor Name Role Phone Kala López M.D. 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 07/26/2022 Xldpfvaobw77lf Tablets 1 by mouth every day 90tabs Kala Branch M.D. Vitamin A3mg (08442 Ut) Capsules Unknown Folic Pnfn641wax/ML Liquid 1 ml daily Unknown Zyrtec Yrepniz27yo Tablets 1 by mouth bid Unknown Timolol Maleate0.5% Solution Corey Smart Hghwdcz71bb Tablets Unknown Llvlmaaq431ai/ml Solution Auto-Inject Unknown 000 Vswuoeyegq1MQ/10ML Suspension Maria Victoria Juarez Upkxhykxre52sg Tablets DR jacques twice daily Unknown Vitamin Q150awz (1000 Ut) Capsules 4 by mouth every day 100caps Kala Branch M.D. Calcium Citrate Chewy Kdzd519-09.5mg-mcg Chewtabs 1 by mouth twice a day Kala Branch M.D. Vitamin C500mg Tablets 1 by mouth 3 times daily Unknown Dvnjbhde65tm Capsules 1 bid Unknown Akol139(50Zn) mg Capsules 1 qd Unknown Lidocaine-Prilocaine2. 5-2.5% Cream prn Unknown Azfdkpsgj141bl Tablets 1 by mouth twice daily Unknown Betamethasone Dipropionate0.05% Cream apply twice daily to affected area as needed Unknown Tylenol Extra Ccrztefm398ya Tablets 2 by mouth twice daily as needed Unknown Duloxetine XDD94qx Caps DR Umanzor take 1 capsule by mouth twice daily Unknown Duloxetine ILC57qe Caps DR Umanzor Take 1 by mouth every day Unknown Ztsvy12446-54863Sftk Caps DR Umanzor Take 2 capsules by mouth four times daily Unknown Ventolin CVE881(90Base) mcg/Act Aerosol Use as directed every 4 to 6 hours Kala López M.D. Azelastine HCL (Nasal)0.1% Solution 1 spray to each nostril twice daily Carol Mayberry MD Fluticasone Yzidmepyqm22ekd/Act Suspension Two sprays to each nostril twice daily Kala López M.D. Meclizine BWM97xm Tablets Take 1 tablet four times daily Unknown Betamethasone Valerate0.1% Cream Use daily up to four times Kala López M.D. Hagluvdpr55-3.5mcg/Act Aerosol 2 puffs twice daily Kala López [...] Interpretive Guide: See Comment: 3 Albumin 08/14/2022 [facility] Albumin 4.6 GM/DL (3.4-4.8) 25Oh Vitamin D 08/14/2022 [facility] 25Oh Vitamin D 65.3 NG/ML High (20-50) TSH 08/14/2022 [facility] TSH 1.10 uIU/mL (0.4-4.2) Calcium 08/14/2022 [facility] Calcium 9.6 mg/dL (8.6-10.5 ) PTH, Intact 08/14/2022 [facility] PTH, Intact 72 pg/mL High (15-65) TSH With Reflex To FT4 07/26/2022 [facility] TSH With Reflex To FT4 1.50 uIU/mL (0.4-4.2) PTH, Intact 07/26/2022 [facility] PTH, Intact 44 pg/mL (15-65) Calcium 07/26/2022 [facility] Calcium 9.8 mg/dL (8.6-10.5 ) 25Oh Vitamin D 07/26/2022 [facility] 25Oh Vitamin D 60.2 NG/ML High (20-50) Albumin 07/26/2022 [facility] Albumin 4.3 GM/DL (3.4-4.8) TSH 04/13/2022 [facility] TSH <pending> Calcium 04/13/2022 [facility] Calcium <pending> Albumin 04/13/2022 [facility] Albumin <pending> PTH, Intact 04/13/2022 [facility] PTH, Intact <pending> 25Oh Vitamin D 04/13/2022 [facility] 25Oh Vitamin D <pending> 1 Vitamin D deficiency has been defined by the [place] of [employer] and an Endocrine Society practice guideline as a level of serum 25-OH vitamin D less than 20 ng/mL (1,2). The Endocrine Society went on to further define vitamin D insufficiency as a level between 21 and 29 ng/mL (2). 1. IOM ([place] of [employer]). 2010. Dietary reference intakes for [...] measured NTx value is <or=38 nM BCE/mM ALTERATIONS SUPERVISOR, or NTx has decreased >or=30% from baseline.[1] [...] measured NTx value is <or=38 nM BCE/mM ALTERATIONS SUPERVISOR, or NTx has decreased >or=30% from baseline.[1] [...] Res.11(1):M757,1995 Procedures Date Code Description Status 07/31/2023 99802 Collection Of Venous Blood B y Venipuncture Completed 07/26/2022 62495 Collection Of Venous Blood B y Venipuncture [...]
--- OUTSIDE RECORDS SUMMARY | 2025-03-18 09:36 | XMS_ITS | Clinical Summary ---
Author Organization [facility] Address [address] [place] [phone] Phone Care Team Providers Care Tool And Cutter Grinder Name Role Phone Kala López MD Primary Care Provider [phone]- [phone] Allergies Active Allergy Reactions Criticality Noted Date [...] & Mag Hydroxide-Simeth Other (see comments) 08/14/2022 Yag-Tpefm-Wrnz-Lidocaine 01/18/2016 Neomycin-Bacitracin Zn-Polymyx Other (see comments) 08/14/2022 [...] 1 Refills, Soft Stop, 01/13/21 22:15:00 EDT, [facility], Partial fill upon patient request [...] mouth 3 times a day Active Creon [id number] units capsule 08/14/19 23 Active thiamine (VITAMIN [...] Nails Formula) tablet Take by mouth Active Galcanezumab-gn lm (Emgality) 120 MG/ML solution auto-injector Inject under the skin See administration instructions Every 4 weeks Active furosemide (LASIX) 20 MG tablet Take 1 tablet (20 mg total) by mouth 1 (one) time each day 90 tablet 3 12/30/19 25 026 Active DULoxetine (CYMBALTA) [address] capsule Take by mouth 12/06/19 23 Active Galcanezumab-gn lm (EMGALITY SC) 120 mg 02/04/20 24 Active Zoledronic Acid (RECLAST IV) Infuse 5 mg into a venous catheter 10/16/19 25 Active Ubrelvy 50 MG tablet Take 50 mg by mouth 12/03/19 24 Active tiZANidine (ZANAFLEX) 2 MG tablet 1 po bid 04/23/20 24 Active sucralfate (CARAFATE) 1 g tablet 12/22/19 25 Active Active Problems Problem Noted Date [...] 50% (severe disability ) on 06/29/22, updated [place] Back Pain Scale: 26 on 06/29/22Updated Oswestry Disability Index: 47% (21/45; severe disability ); updated [place] Back Pain Disability Scale score: 38 both 08/25/20Updated Oswestry Disability Index: 48% ( severe disability ) on 03/11/19; updated [place] Back Pain Disability Scale score: 42 on [...] hernia repair by Cameron Castaneda MD at [facility] 09/2001 vertical gastric bypass by James Royal MD at [facility] Hearing loss 08/14/2022 Decreased reflex 08/14/2022 Inflammatory [...] periumbilical hernia, by Cameron Castaneda M.D. at [facility] Intussusception of intestine 01/16/2006 Overview (08/14/2022): presented as abdominal pain. Treated with reduction of small bowel, reverse intussusception and jejunojenopexy by Jack Barron MD at [facility] Encounters Date Type Department Care Team Description 01/21/2025 Telephone [facility] [address] [phone] Marci Davenport 01/21/2025 Orders Only [facility] [address] [address] Selvin Arce MD Chronic kidney disease, not otherwise specified (Primary Dx); Lymphedema 01/15/2025 Results Follow-Up [facility] [address] [address] Selvin Arce MD 01/15/2025 Orders Only [facility] [address] [address] Selvin Arce MD Hypokalemia (Primary Dx) 12/29/2024 1:15 PM EDT Office Visit [facility] [address] [address] Selvin Arce MD Chronic kidney disease, not otherwise specified (Primary Dx); Lymphedema from Last 3 Months Immunizations Immunization Administration [...] Sign Reading Time Taken Comments Blood Pressure 100/60 12/29/2024 1:21 PM EDT Pulse 59 12/29/2024 1:21 PM EDT Temperature - - Respiratory Rate - - Oxygen Saturation 99% 08/13/2023 12:54 PM EDT Inhaled Oxygen Concentration - - Weight 96.2 kg (212 lb) 12/29/2024 1:21 PM EDT Height 157.5 cm (5' 2 ) 06/11/2020 12:00 PM EST Body Mass Index 38.78 06/11/2020 12:00 PM EST Plan of Treatment Upcoming Encounters Date Type Department Care Team (Late st Contact Info) Description 12/28/2025 1:45 PM EDT Office Visit [facility] [address] [address] Selvin Arce MD [address] [address] Health Maintenance Due Date Last Done Comments [...] Discontinued 12/31/2015, 02/11/2015, 02/11/2015, Additional history exists Procedures Procedure Name Priority Date/Time Associated Diagnosis Comments CBC Routine 01/22/2025 10:59 AM EDT Chronic kidney disease, not otherwise specified Lymphedema RENAL FUNCTION PANEL Routine 01/22/2025 10:59 AM EDT Chronic kidney disease, not otherwise specified Lymphedema RENAL FUNCTION PANEL Routine 01/14/2025 11:12 AM EDT Chronic kidney disease, not otherwise specified from Last 3 Months Results * (ABNORMAL) CBC (01/22/2025 10:59 AM EDT) WBC 3.9(L) 4.8 - 10.8 K/mcL [facility] RBC 5.00(H) 3.80 - 4.80 M/[facility] Hgb 12.0 11.5 - 16.0 g/dL [facility] Hematocrit 39.2 35.0 - 47.0 % [facility] MCV 77.8(L) 79.0 - 98.0 FL [facility] MCH 23.8(L) 27.0 - 32.0 pcg [facility] MCHC 30.6(L) 32.0 - 37.0 g/dL [facility] RDW 13.0 11.0 - 15.0 % [facility] Platelets 260 130 - 400 K/[facility] MPV 9.0 7.0 - 11.0 FL [facility] nRBC Count 0.0 <1.0 % [facility] NRBC Absolute 0.00 <0.10 K/mcL [facility] Blood Venous blood / Unknown 01/22/2025 10:59 AM EDT 01/22/2025 11:46 AM EDT us Selvin Arce MD LAB BLOOD ORDERABLES Final Resul t MIGUEL ANGEL [facility] [address] [place] [address] * Renal Function Panel (01/22/2025 10:59 AM EDT) Only the most recent of2 resultswithin the time period is included. Sodium 140 133 - 145 mmol/L [facility] Potassium 4.1 3.5 - 5.5 mmol/L [facility] Chloride 104 96 - 110 mmol/L [facility] Bicarbonate (CO2) 32 21 - 32 mmol/L [facility] Anion Gap 4 3 - 11 [facility] Glucose 86 70 - 100 mg/dL [facility] BUN 22 5 - 25 mg/dL [facility] Creatinine Serum 0.70 0.50 - 1.10 mg/dL [facility] eGFR 102 >=60 mL/min/1. 73m2 [facility] Comment:Calculation based on the Chronic Kidney Disease Epidemiology Collaboration (CKD-EPI) equation refit without adjustment for race. BUN/Creatinine Ratio 31.4 [facility] Albumin 3.8 3.2 - 5.0 g/dL [facility] Calcium 9.2 8.5 - 10.5 mg/dL [facility] Phosphorus 4.1 2.5 - 4.5 mg/dL [facility] Blood Venous blood / Unknown 01/22/2025 10:59 AM EDT 01/22/2025 11:45 AM EDT Narrative MIGUEL ANGEL - 01/22/2025 2:48 PM EDT To be Done in ( For [facility] patients use ) For [facility] use us Selvin Arce MD LAB BLOOD ORDERABLES Final Resul t MIGUEL ANGEL [facility] [address] [place] [address] from Last 3 Months Insurance [place] Care Teams Tool And Cutter Grinder Relationship Specialty Start Date End Date Kala López MD [address] [place], [place] PCP - General 05/24/20
--- OUTSIDE RECORDS SUMMARY | 2025-03-18 09:37 | XMS_ITS | Clinical Summary ---
Author Organization [facility] Address [address] [place] [address] Care Team Providers Care Marketing Ambassador Name Role Phone HowardBecky GLDAIS Primary Care Provider [phone] Source Comments PLEASE NOTE, if this patient [...] Screening 1970 Diabetes Screening 1970 HPV Screening (self-collect) 1970 HPV Screening 1970 Hepatitis C Screening [...] Drug Screen 05/14/2024 Depression Annual Screen 05/14/2024 [id number] (2024- season) 2025 10/25/2021, 07/29/2020, 07/08/2020 Imm-Influenza (#1) 2025 03/15/2023, 1 , 03/27/2019, Additional history exists Imm-DTaP/Tdap/Td (4 - Td or Tdap) 09/28/2025 09/29/2015, 09/28/2015, 04/16/2007 Cervical Ablation/Cold-Knife Conization Discontinued Cervical Cryotherapy Discontinued Colposcopy Discontinued Excision/Leep Discontinued HPV Genotyping Discontinued Vaginal Pap Discontinued Vulvoscopy Discontinued Insurance [place] Member Subscriber Plan / Payer (Ef fective 2014-Present) Name:Honey Quispe Relation to Subscriber:Self Name:Honey Quispe Payer ID:[id number] Group ID:Not on file Type:Medicaid Address: [place] [id number] [facility] Care Teams Marketing Ambassador Relationship Specialty Start Date End Date Becky Lawrence DMD [address] [place] [address] PCP - General 07/23/20
--- OUTSIDE RECORDS SUMMARY | 2025-03-18 09:37 | XMS_ITS | Clinical Summary ---
Author Organization [facility] Address [address] [place] [address] Care Team Providers Care Open Hearth Worker Name Role Phone Kala López MD Primary Care Provider [phone] Allergies Active Allergy Reactions Criticality Noted Date [...] 4 (four) times a day. 0 Active Jjfipub-Ayrxknkhw-Mao munson D (CALCIUM 500 PO) Take by [...] as needed. 0 Active vitamin A capsule 36358 units Take 10,000 Units by mouth 2 [...] age to complete this topic Care Teams Open Hearth Worker Relationship Specialty Start Date End Date Kala López MD [address] [place] [address] PCP - General Internal Medicine 11/04/16
--- OUTSIDE RECORDS SUMMARY | 2025-03-18 09:37 | XMS_ITS | Clinical Summary ---
Author Organization [facility] Address [address] [place] [address] Phone Care Team Providers Care Tube Cutter Name Role Phone Kala López MD Primary Care Provider [phone]- [phone] Allergies Active Allergy Reactions Criticality Noted Date [...] days. 1 mL 3 5 025 Discontin ued(Reord er) Active Problems Problem Noted Date Diagnosed Date Anemia 11/13/2016 Encounters Date Type Department Care Team Description 02/25/[address] [phone] Christine Escobar MD 02/11/2025 10:00 AM EDT Procedure visit [address] [phone] Christine Escobar MD Migraine without aura and without status migrainosus, not intractable (Primary Dx) 01/02/2025 11:30 AM EDT Telemedicine [address] [phone] Christine Escobar MD Migraine without aura and [...] disease) DX:GERD (gastroesophageal reflux disease) Asthma DX:Asthma 'Nbgqf-nio-hupfe' infant wit h signs of malnutrition DX:'Qwtup-ecy-tfnke' with signs of malnutrition Osteoarthritis DX:Osteoarthriti s [...] Description 03/20/2025 3:00 PM EST Office Visit [facility] [address] [place] [phone] Rain Dyer PA [address] [place] [phone] 04/29/2025 9:20 AM EST Procedure visit [facility] [address] [facility] [address] [place] [phone] Christine Escobar MD [address] [place], [place] [phone] Health Maintenance Due Date Last Done Comments [...] K/mcL LAB HEM[facility]OLOGY [facility] RBC 5.00(H) 3.80 - 4.80 M/mcL LAB HEMETOLOGY METHOD 01/22/2025 11:59 AM [facility] Hemoglobin 12.0 11.5 - 16.0 g/dL LAB HEMETOLOGY METHOD 01/22/2025 11:59 AM [facility] Hematocrit 39.2 35.0 - 47.0 % LAB HEMETOLOGY METHOD 01/22/2025 11:59 AM [facility] MCV 77.8(L) 79.0 - 98.0 FL LAB HEMETOLOGY METHOD 01/22/2025 11:59 AM EDT [facility] MCH 23.8(L) 27.0 - 32.0 pcg LAB HEMETOLOGY METHOD 01/22/2025 11:59 AM EDT [facility] MCHC 30.6(L) 32.0 - 37.0 g/dL LAB HEMETOLOGY METHOD 01/22/2025 11:59 AM EDT [facility] RDW 13.0 11.0 - 15.0 % LAB HEMETOLOGY METHOD 01/22/2025 11:59 AM EDT [facility] Platelets 260 130 - 400 K/mcL LAB HEMETOLOGY METHOD 01/22[facility]2025 11:[facility] MPV 9.0 7.0 - 11.0 FL LAB HEMETOLOGY METHOD 01/22/2025 11:59 AM EDT [facility] NRBC 0.0 <1.0 % LAB HEMETOLOGY METHOD 01/22/2025 11:[facility] NRBC Absolute 0.00 <0.10 K/mcL LAB HEMETOLOGY METHOD 01/22/2025 11:59 AM [facility] Blood Venous blood specimen / Unknown Venipuncture / Unknown 01/22/2025 10:59 AM EDT 01/22/2025 11:46 AM EDT us Selvin Arce MD LAB BLOOD ORDERABLES Final Res ult [facility] [address] [place] [address], * Renal function panel (01/22/2025 10:59 AM EDT) Sodium 140 133 - 145 mmol/L LAB CHEMISTRY METHOD 01/22/2025 2:48 PM EDT [facility] Potassium 4.1 3.5 - 5.5 mmol/L LAB CHEMISTRY METHOD 01/22/2025 2:48 PM [facility] Chloride 104 96 - 110 mmol/L LAB CHEMISTRY METHOD 01/22/2025 2:48 PM [facility] CO2 32 21 - 32 mmol/L LAB CHEMISTRY METHOD 01/22/2025 2:48 PM [facility] Anion Gap 4 3 - 11 LAB CHEMISTRY METHOD 01/22/2025 2:48 PM [facility] Glucose 86 70 - 100 mg/dL LAB CHEMISTRY METHOD 01/22/2025 2:48 PM [facility] BUN 22 5 - 25 mg/dL LAB CHEMISTRY METHOD 01/22/2025 2:48 PM [facility] Creatinine 0.70 0.50 - 1.10 mg/dL LAB CHEMISTRY METHOD 01/22/2025 2:48 PM [facility] eGFR 102 >=60 mL/min/1. 73m2 LAB CHEMISTRY METHOD 01/22/2025 2:48 PM [facility] Comment:Calculation based on the Chronic Kidney Disease Epidemiology Collaboration (CKD-EPI) equation refit without adjustment for race. BUN/Creatinine Ratio 31.4 LAB CHEMISTRY METHOD 01/22/2025 2:48 PM [facility] Albumin 3.8 3.2 - 5.0 g/dL LAB CHEMISTRY METHOD 01/22/2025 2:48 PM [facility] Calcium 9.2 8.5 - 10.5 mg/dL LAB CHEMISTRY METHOD 01/22/2025 2:48 PM [facility] Phosphorus 4.1 2.5 - 4.5 mg/dL LAB CHEMISTRY METHOD 01/22/2025 2:48 PM [facility] Blood Venous blood specimen / Unknown Venipuncture / Unknown 01/22/2025 10:59 AM EDT 01/22/2025 11:45 AM EDT us Selvin Arce MD LAB BLOOD ORDERABLES Final Res ult [facility] [address] [place] [address], [place] [phone] from Last 3 Months Insurance MEDICARE [place]ICAID [place] Care Teams Tube Cutter Relationship Specialty Start Date End Date Kala López MD [address] [place] [address] PCP - General 11/04/16
== END 2025-03-18 10:20 | disposition home or self-care (01) ==
LOC: HO.HMCHD 09:02
PROVIDERS: PCP Internal Medicine; Visit Provider Internal Medicine
DX: D64.9 Anemia, unspecified (principal); G43.909 Migraine, unspecified, not intractable, without status migrainosus; K21.9 Gastro-esophageal reflux disease without esophagitis; I89.0 Lymphedema, not elsewhere classified; F41.9 Anxiety disorder, unspecified; M79.7 Fibromyalgia; M54.12 Radiculopathy, cervical region; F32.A Depression, unspecified; J45.30 Mild persistent asthma, uncomplicated

== ENCOUNTER 2025-03-18 10:29 | Outpatient (REF) | payer MEDICARE, MEDICAID, SELFPAY ==
[2025-03-18 14:11] LABS: Alanine Aminotransferase 32 U/L (0-31); Albumin Level 4.3 g/dL (3.5-5.0); Alkaline Phosphatase 108 U/L (39-117); Anion Gap 11 (12-20); Aspartate Amino Transferase 26 U/L (5-31); Blood Urea Nitrogen 19 mg/dL (9-16); Calcium 9.1 mg/dL (8.4-10.2); Carbon Dioxide 33 mmol/L (22-29); Chloride 103 mmol/L (96-108); Estimated Glomerular Filt Rate > 60; Magnesium 2.4 mg/dL (1.6-2.6); Potassium 3.7 mmol/L (3.3-5.1); Sodium 143 mmol/L (135-145); Total Protein 7.2 g/dL (6.5-8.0)
== END 2025-03-18 10:30 | disposition home or self-care (01) ==
LOC: HO.10HDL 10:29
PROVIDERS: Visit Provider Internal Medicine
DX: I89.0 Lymphedema, not elsewhere classified (principal); M79.7 Fibromyalgia; N18.9 Chronic kidney disease, unspecified
CPT/HCPCS: 36415; 80053; 83735; 99212

== ENCOUNTER 2025-04-29 10:11 | Outpatient (REF) | payer MEDICARE, MEDICAID, SELFPAY ==
--- OUTSIDE RECORDS SUMMARY | 2025-04-23 23:59 | XMS_ITS | Continuity of Care Document ---
Author Organization [facility] Address [address] [place] [address]- [facility] Name Relationship Address Phone JUAN FRANCISCO, HONEY Personal Relationship Unknown Unavailable JUAN FRANCISCO, EB Other Unknown Unavailable JUAN FRANCISCO, HONEY Personal Relationship Unknown Unavailable JUAN FRANCISCO, HONEY Personal Relationship Unknown Unavailable JUAN FRANCISCO, HONEY Personal Relationship Unknown Unavailable NIRMAL SHER grandparent Unknown Unavailable JUAN FRANCISCOYOSELIN sibling Unknown Unavailable JUAN FRANCISCO, HONEY Personal Relationship Unknown Unavailable JUAN FRANCISCO, HONEY Personal Relationship Unknown Unavailable JUAN FRANCISCO, HONEY Personal Relationship Unknown Unavailable JENSEN CHICAS mother Unknown Unavailabl e JUAN FRANCISCO, HONEY Personal Relationship Unknown Unavailable JUAN FRANCISCO, HONEY Personal Relationship Unknown Unavailable JUAN FRANCISCO, HONEY Personal Relationship Unknown Unavailable FRANKY BATES Other Unknown Unavai genesis JUAN FRANCISCO, HONEY Personal Relationship Unknown Unavailable Care Team Providers Care Nca Certified Concierge Name Role Phone Kala López MD Primary Care Physician Encounter [facility] R [id number] Date(s): 03/24/25 - 04/23/25 [facility] [address] [place] [address] Encounter Type: Triage Allergies, Adverse Reactions, Alerts Substance Criticality Severity Reaction Reaction Severity Status doxycycline full rash Active nortriptyline facial droop severe chest pain Active aspirin hives, asthma Active heparin anaphalaxis raises B.P. Active scopolamine stroke like symptoms bp increased [D]Numbness Active clobetasol topical hives, it chiness, redness Active iron dextran coded x3 anaphylaxis Active penicillins anaphylaxis rash Active Singulair chest pain/asth ma exac/ difficulty breathing SLURRED SPEECH Active Lamictal breathing problems A ctive Zofran trigemy brigemy episodes Active Librium slurred speech Activ e Klonopin right facial swelling/slurred speech Active Marinol slurred speech Memory loss Active Motrin hives, asthma Active Percocet hives/asthma Active Dilaudid trigemy brigrmy episodes Active Bactrim hives Active Neosporin topical ointment facial swelling Active Lyrica chest pain Active Mylanta rash Active Maalox rash,itchy Active Elavil Facial droop... Acti ve Vioxx hives Active Latex 1 hives Active Tape rash Active Asmanex Twisthaler 14 Dose chest pain Active Anbesol Liquid facial swelling Active 1allergery to latex tape. Immunizations Given and Recorded Vaccine Date Status Refusal Reason influenza virus vaccine, inactivated 01/18/24 Az rded influenza virus vaccine, inactivated 1 03/15/23 Gi kaur influenza virus vaccine, inactivated 03/01/21 Az rded influenza virus vaccine, inactivated 03/27/19 Az rded influenza virus vaccine, inactivated 2 02/05/18 Gi kaur influenza virus vaccine, inactivated 3 03/02/17 Re corded influenza virus vaccine, inactivated 03/25/15 Az rded influenza virus vaccine, inactivated 04/23/14 Az rded influenza virus vaccine, inactivated 01/21/13 Az rded influenza virus vaccine, inactivated 03/06/12 Az rded influenza virus vaccine, inactivated 01/24/11 Az rded influenza virus vaccine, inactivated 01/28/10 Az rded influenza virus vaccine, inactivated 07/23/09 Give n influenza virus vaccine, inactivated 03/04/08 Give n pneumococcal 20-valent conjugate vaccine 12/20/23 Recorded [id number] 12y+ bivalent booster vax 03/13/22 Recorded SARS-CoV-2 mRNA ([id number]) vax 10/25/21 Given SARS-CoV-2 (COVID-19) mRNA BNT-162b2 vac 07/29/20 Recorded SARS-CoV-2 (COVID-19) mRNA BNT-162b2 vac 07/08/20 Recorded pneumococcal 23-valent vaccine 12/31/15 Given pneumococcal 23-valent vaccine 07/12/09 Recorded tetanus/diphtheria/pertussis, acel(Tdap) 09/29/15 Given tetanus/diphtheria/pertussis, acel(Tdap) 04/16/07 Recorded Pneumococcal Vaccine (oldterm) 03/16/06 Given 1Result Comment: [facility] [id number] 2Result Comment: [02/05/2018] [facility]# 79200-563-17 pt. tolerated inj. without complications...[place] 3Location History: inpatient @ [place] Medications acetaminophen 500 mg oral tablet 2 tablet, By Mouth, Daily, PRN NEEDED FOR MODERATE PAIN (VIAL), # 60 tablet, 11 Refills, Maintenance, 05/19/24 10:36:00 AM EST, [facility], 157, cm, 04/24/24 12:53:00 EST, Height, 83, kg, 04/23/24 8:46:00 EST, Dry Weight Start Date: 05/19/24 Status: Ordered Medication Dispense Status: Completed Quantity: 60.0 Unit: tablet Total Allowed Fills: 1 Fills Dispensed: 0 albuterol-ipratropium 3 mg-0.5 mg/3 ml inhalation solution 3 mL, Inhalation, 4 times a day, j45.40, # 360 mL, 11 Refills, Maintenance, 07/14/24 1:54:00 PM EST, Solution, [facility], Partial fill upon patient request if the prescription is for a schedule II opioid drug., 3 mL Inhalation 4 times a day,Instr:j45.40, 157, cm, 05/20/24 10:19:00 EST, Height, 83, kg, 04/23/24 8:46:00 EST, Dry Weight Start Date: 07/14/24 Status: Ordered Medication Dispense Status: Completed Quantity: 360.0 Unit: mL Total Allowed Fills: 12 Fills Dispensed: 0 azelastine 137 mcg/inh (0.1%) nasal spray 0 Refills, Maintenance, 12/20/22 8:00:00 AM EDT, Partial fill upon patient request if the prescription is for a schedule II opioid drug. Start Date: 12/20/22 Status: Ordered Medication Dispense Status: Completed Total Allowed Fills: 1 Fills Dispensed: 0 Back Brace See Instructions, # 1 Unknown, Maintenance, Wear brace while ambulating, 04/23/25 9:30:00 AM EST, Supply, 160, cm, 03/23/25 9:06:00 EST, Height, 99.4, kg, 03/24/25 10:42:00 EST, Dry Weight Start Date: 04/23/25 Status: Ordered Medication Dispense Status: Completed Quantity: 1.0 Unit: Unknown Total Allowed Fills: 1 Fills Dispensed: 0 Back Brace See Instructions, # 1 Unknown, Maintenance, Wear during ambulation, 04/23/25 4:23:00 PM EST, Supply, 160, cm, 03/23/25 9:06:00 EST, Height, 99.4, kg, 03/24/25 10:42:00 EST, Dry Weight Start Date: 04/23/25 Status: Ordered Medication Dispense Status: Completed Quantity: 1.0 Unit: Unknown Total Allowed Fills: 1 Fills Dispensed: 0 baclofen 10 mg oral tablet Refills 0, Maintenance, 03/06/25 4:28:00 PM EDT, Partial fill upon patient request if the prescription is for a schedule II opioid drug. Start Date: 03/06/25 Status: Ordered Medication Dispense Status: Completed Total Allowed Fills: 1 Fills Dispensed: 0 betamethasone-clotrimazole 0.05%-1% topical cream 1 application, Topically, 2 times a day, BULK., # 45 Gm, 4 Refills, Maintenance, 07/25/24 2:25:00 PMEDT, [facility], 22, APPLY ONE APPLICATION EXTERNAL TWICE A DAY (BULK), 157, cm, 07/17/24 14:52:00 EST, Height, 83, kg, 04/23/24 8:46:00 EST, Dry Weight Start Date: 07/25/24 Status: Ordered Medication Dispense Status: Completed Quantity: 45.0 Unit: g Total Allowed Fills: 1 Fills Dispensed: 0 Biotin By Mouth, Daily, 0 Refills, Maintenance, 10/09/24 11:04:00 AM EDT, Partial fill upon patient requestif the prescription is for a schedule II opioid drug. Start Date: 10/09/24 Status: Ordered Medication Dispense Status: Completed Total Allowed Fills: 1 Fills Dispensed: 0 Carafate 1 gm/10 ml oral suspension 10 mL = 1 Gm, By Mouth, 3 times a day before meals and bedtime, # 1,200 mL, 0 Refills, Maintenance,03/20/25 1:49:00 PM EST, [id number], Partial fill upon patient request if the prescription is for a schedule II opioid drug., 160, cm, 03/16/25 9:07:00 EST, Height, 99.1, kg, 259:07:00 EST, Dry Weight Start Date: 03/20/25 Status: Ordered Medication Dispense Status: Completed Quantity: 1200.0 Unit: mL Total Allowed Fills: 1 Fills Dispensed: 0 Compression Stockings surgical, panty hose length 30-40 mm Hg, # 2 each, Maintenance, wear daily remove bedtime [facility], 11/15/22 9:30:00 AM EDT, Supply Start Date: 11/15/22 Status: Ordered Medication Dispense Status: Completed Quantity: 2.0 Unit: each Total Allowed Fills: 1 Fills Dispensed: 0 Controlled Substance Agreement Controlled Substance Agreement, See Instructions, # 1 each, Refills 0, Tot. Refills 0, Maintenance,Updated On: 09/13/2023 Pharmacy I: [facility] DX: G62.9; M54.5, 09/13/23 8:28:00 AM EDT, Compound Start Date: 09/13/23 Status: Ordered Medication Dispense Status: Completed Quantity: 1.0 Unit: each Total Allowed Fills: 1 Fills Dispensed: 0 Creon 24,000 units oral delayed release capsule See Instructions, TAKE TWO CAPSULES BY MOUTH THREE TIMES A DAY WITH MEALS AND 1 CAPSULE WITH SNACKS(ORIGINAL CONTAINER), # 240 capsule, 2 Refills, Maintenance, 04/13/25 1:17:00 PM EST, [facility], 160, cm, 03/23/25 9:06:00 EST, Height, 99.4, kg, 03/24/25 10:42:00 EST, Dry Weight Start Date: 04/13/25 Status: Ordered Medication Dispense Status: Completed Quantity: 240.0 Unit: capsule Total Allowed Fills: 1 Fills Dispensed: 0 Custom Bilateral/Chaps/CC1 Custom Bilateral/Chaps/CC1, See Instructions, # 3 each, Refills 1, Tot. Refills 1, Maintenance, DX:Lymphedema/Venous insuff, 08/13/24 3:15:00 PM EDT, Supply Start Date: 08/13/24 Status: Ordered Medication Dispense Status: Completed Quantity: 3.0 Unit: each Total Allowed Fills: 2 Fills Dispensed: 0 Indications: Venous insufficiency (chronic) (peripheral); Lymphedema, not elsewhere classified; cyanocobalamin 1000 mcg/ml injectable solution See Instructions, INJECT 1ML INTRAMUSCULARLY EVERY 90 DAYS (BULK), # 1 mL, 3 Refills, Maintenance, 07/31/24 1:05:00 PM EDT, [facility], 157, cm, 07/31/24 9:01:00 EDT, Height, 83, kg, 04/23/24 8:46:00 EST, Dry Weight Start Date: 07/31/24 Status: Ordered Medication Dispense Status: Completed Quantity: 1.0 Unit: mL Total Allowed Fills: 4 Fills Dispensed: 0 desoximetasone 0.05% topical cream Topically, 2 times a day, 0 Refills, Maintenance, 03/24/25 10:44:00 AM EST, Partial fill upon patient request if the prescription is for a schedule II opioid drug. Start Date: 03/24/25 Status: Ordered Medication Dispense Status: Completed Total Allowed Fills: 1 Fills Dispensed: 0 duloxetine 20 mg oral enteric coated capsule 2 capsule, By Mouth, Daily, # 180 capsule, 0 Refills, Maintenance, 12/03/23 3:21:00 PM EDT, [facility], 159, cm, 11/29/23 13:23:00 EDT, Height, 71.7, kg, 11/06/23 11:26:00 EDT, Dry Weight Start Date: 12/03/23 Stop Date: 03/02/24 Status: Ordered Medication Dispense Status: Completed Quantity: 180.0 Unit: capsule Total Allowed Fills: 1 Fills Dispensed: 0 duloxetine 60 mg oral enteric coated capsule 1 capsule = 60 mg, By Mouth, Daily, 3 month supply. For use with 20mg caps to titrate to 100mg/day., # 84 capsule, 3 Refills, Maintenance, 03/26/24 1:59:00 PM EST Start Date: 03/26/24 Status: Ordered Medication Dispense Status: Completed Quantity: 84.0 Unit: capsule Total Allowed Fills: 4 Fills Dispensed: 0 Emgality = 120 mg, once a month, 0 Refills, Maintenance, 02/04/24 7:59:00 AM EDT, Partial fill upon patient request if the prescription is for a schedule II opioid drug. Start Date: 02/04/24 Status: Ordered Medication Dispense Status: Completed Total Allowed Fills: 1 Fills Dispensed: 0 EPINEPHrine 0.3 mg injectable solution 0 Refills, Maintenance, 03/13/23 7:44:00 AM EDT, Partial fill upon patient request if the prescription is for a schedule II opioid drug. Start Date: 03/13/23 Status: Ordered Medication Dispense Status: Completed Total Allowed Fills: 1 Fills Dispensed: 0 fluticasone 50 mcg/inh nasal spray See Instructions, SPRAY(S) 1 SPRAY(S) INTO EACH NOSTRIL TWICE A DAY, # 16 Gm, 10 Refills, Maintenance, 12/15/22 4:02:00 PM EDT, [facility], 30, SPRAY(S) 1 SPRAY(S) INTO EACH NOSTRIL TWICE A DAY, 158, cm, 12/12/22 7:51:00 EDT, Height, 75.8, kg, 09/20/22 9:15:00 EDT, Dry Weight Start Date: 12/15/22 Status: Ordered Medication Dispense Status: Completed Quantity: 16.0 Unit: g Total Allowed Fills: 1 Fills Dispensed: 0 folic acid 1 mg oral tablet See Instructions, TAKE 1 TABLET BY MOUTH ONCE A DAY ^1R1, # 28 tablet, Refills 5, Maintenance, 10/09/24 11:04:00 AM EDT, Instructions Replace Required Details, Route to Pharmacy Electronically, [facility], 157.5, cm, 10/09/24 10:34:00 EDT, Height, 92, kg, 10/09/24 10:34:00 EDT, Dry Weight Start Date: 10/09/24 Status: Ordered Medication Dispense Status: Completed Quantity: 28.0 Unit: tablet Total Allowed Fills: 1 Fills Dispensed: 0 furosemide 20 mg oral tablet 20 mg, 1, tablet, By Mouth, Daily, leg swelling, # 30 tablet, Refills 0, Tot. Refills 0, Soft Stop,11/06/23 3:31:00 PM EDT, Route to Pharmacy Electronically, [facility] #[id number], Partial fillupon patient request if the prescription is for a schedule II opioid drug., 159, cm, 11/06/23 11:26:00 EDT, Height, 71.7, kg, 11/06/23 11:26:00 EDT, Dry Weight Start Date: 11/06/23 Status: Ordered Medication Dispense Status: Completed Quantity: 30.0 Unit: tablet Total Allowed Fills: 1 Fills Dispensed: 0 ipratropium nasal 21 mcg/inh spray See Instructions, PRN Nasal Congestion, 1 spray each nostril BID, # 1 each, 11 Refills, Maintenance, 03/27/24 10:18:00 AM EST, [facility], Partial fill upon patient request if the prescription is for a schedule II opioid drug., 1 spray each nostril BID,PRN:Nasal Congestion, 157, cm, 03/27/24 9:28:00 EST, Height, 83, kg, 03/27/24 9:28:00 EST, Dry Weight Start Date: 03/27/24 Status: Ordered Medication Dispense Status: Completed Quantity: 1.0 Unit: each Total Allowed Fills: 12 Fills Dispensed: 0 Lomotil 0.025 mg-2.5 mg oral tablet 1, tablet, By Mouth, 4 times a day, for use only if more than 3 loose stools/day, # 112 tablet, Refills 2, Tot. Refills 2, Maintenance, 09/22/24 5:49:00 PM EDT, Route to Pharmacy Electronically, [facility], 157, cm, 09/03/24 7:28:00 EDT, Height, 83, kg, 04/23/24 8:46:00 EST, Dry Weight Start Date: 09/22/24 Status: Ordered Medication Dispense Status: Completed Quantity: 112.0 Unit: tablet Total Allowed Fills: 3 Fills Dispensed: 0 Lymphedema clinic. Lymphedema both lower extremities please evaluate and treat Lymphedema clinic. Lymphedema both lower extremities please evaluate and treat, See Instructions, #10 each, Refills 8, Tot. Refills 8, Maintenance, [facility] Bilateral lower extremity lymphedema please evaluate and treat, 11/15/22 2:30:00 PM EDT, Supply Start Date: 11/15/22 Status: Ordered Medication Dispense Status: Completed Quantity: 10.0 Unit: each Total Allowed Fills: 9 Fills Dispensed: 0 meclizine 25 mg oral tablet 1 tablet = 25 mg, By Mouth, 4 times a day, As needed for nausea/vertigo, # 224 tablet, 3 Refills, Maintenance, 11/24/24 12:29:00 PM EDT, [facility], 161, cm, 11/18/24 7:44:00 EDT, Height, 95.1, kg, 11/18/24 11:56:00 EDT, Dry Weight Start Date: 11/24/24 Status: Ordered Medication Dispense Status: Completed Quantity: 224.0 Unit: tablet Total Allowed Fills: 4 Fills Dispensed: 0 multivitamin Multiple Vitamins oral liquid 0 Refills, Maintenance, 11/26/23 7:46:00 AM EDT, Partial fill upon patient request if the prescription is for a schedule II opioid drug. Start Date: 11/26/23 Status: Ordered Medication Dispense Status: Completed Total Allowed Fills: 1 Fills Dispensed: 0 Narcan 4 mg/0.1 mL nasal spray See Instructions, SPRAY ONCE INTO ONE NOSTRIL MAY REPEAT Q 2 TO 3 MINUTES IN ALTERNATE NOSTRILS IF NO RESPONSE, # 2 each, 0 Refills, Maintenance, 05/01/24 4:19:00 PM EST, [place], [facility], For personal and community harm reduction, 157, cm, 04/24/24 12:53:00 EST, Height, 83, kg, 04/23/24 8:46:00 EST, Dry Weight Start Date: 05/01/24 Status: Ordered Medication Dispense Status: Completed Quantity: 2.0 Unit: each Total Allowed Fills: 1 Fills Dispensed: 0 Nebulizer supplies Nebulizer supplies, See Instructions, # 1 each, Refills 11, Tot. Refills 11, Maintenance, [id number] Neb Disp Set A7014 Neb non-Disp Filter A7005 Neb Non-Disp set A7015 Aerosol Mask A7013 Neb Disp Filter length of need lifetime 99 months for home use, 02/13/24 4:59:00 PM EDT, Supply Start Date: 02/13/24 Status: Ordered Medication Dispense Status: Completed Quantity: 1.0 Unit: each Total Allowed Fills: 12 Fills Dispensed: 0 omeprazole 20 mg oral enteric coated capsule 1 capsule, By Mouth, 2 times a day, OPEN CAPSULE AND MIX WITH 1 TABLESPOONFUL OF APPLESAUCE AND TAKE IMMEDIATELY (VIAL), # 60 capsule, 11 Refills, Maintenance, 02/16/25 10:30:00 AM EDT, [facility], 160, cm, 02/09/25 7:39:00 EDT, Height, 94.2, kg, 12/04/24 8:10:00 EDT, Dry Weight Start Date: 02/16/25 Status: Ordered Medication Dispense Status: Completed Quantity: 60.0 Unit: capsule Total Allowed Fills: 1 Fills Dispensed: 0 oxazepam 15 mg oral capsule 1-2 capsules, By Mouth, 2 times a day, PRN painful muscle spasms, # 84 capsule, 2 Refills, Maintenance, 03/05/25 9:38:00 PM EDT, [facility], 160, cm, 03/02/25 12:49:00 EDT, Height, 94.2, kg, 12/04/24 8:10:00 EDT, Dry Weight Start Date: 03/05/25 Status: Ordered Medication Dispense Status: Completed Quantity: 84.0 Unit: capsule Total Allowed Fills: 3 Fills Dispensed: 0 Indications: Cramp and spasm; Reclast = 5 mg, IV Infusion, Once, 0 Refills, Maintenance, 10/15/24 12:53:00 PM EDT, Partial fill upon patient request if the prescription is for a schedule II opioid drug. Start Date: 10/15/24 Status: Ordered Medication Dispense Status: Completed Total Allowed Fills: 1 Fills Dispensed: 0 Symbicort 80mcg/4.5mcg Inhaler 2, puffs, Inhalation, 2 times a day, BULK., # 10.2 Gm, Refills 11, Maintenance, 07/25/24 2:17:00 PM EDT, Route to Pharmacy Electronically, [facility]_[id number], [facility], 157, cm, 07/17/24 14:52:00 EST, Height, 83, kg, 04/23/24 8:46:00 EST, Dry Weight Start Date: 07/25/24 Status: Ordered Medication Dispense Status: Completed Quantity: 10.2 Unit: g Total Allowed Fills: 1 Fills Dispensed: 0 syringe and needles syringe and needles, See Instructions, # 12 Unknown, Refills 1, Tot. Refills 1, Maintenance, syringe 3cc needles 25 g X 5/8 inches for use with b12, 02/27/24 11:12:00 AM EDT, rx resent to [facility] 02/27/24, Compound, 157, cm, 02/04/24 7:55:00 EDT, Height, 71.7, kg, 11/06/23 11:26:00 EDT, Dry Weight Start Date: 02/27/24 Status: Ordered Medication Dispense Status: Completed Quantity: 12.0 Unit: Unknown Total Allowed Fills: 2 Fills Dispensed: 0 timolol maleate 0.5% ophthalmic solution 1 drops, Eyes, Both, Daily, # 60 each, 0 Refills, Maintenance, 02/28/24 10:26:00 AM EDT, Solution, Partial fill upon patient request if the prescription is for a schedule II opioid drug. Start Date: 02/28/24 Status: Ordered Medication Dispense Status: Completed Quantity: 60.0 Unit: each Total Allowed Fills: 1 Fills Dispensed: 0 Ubrelvy 50 mg oral tablet 1 tablet = 50 mg, By Mouth, prn, 0 Refills, Maintenance, 02/04/24 8:02:00 AM EDT, Partial fill upon patient request if the prescription is for a schedule II opioid drug. Start Date: 02/04/24 Status: Ordered Medication Dispense Status: Completed Total Allowed Fills: 1 Fills Dispensed: 0 Ventolin HFA 108 mcg/inh inhalation aerosol with adapter 2 puffs, Inhalation, 4 times a day, PRN NEEDED FOR WHEEZING, # 18 Gm, 5 Refills, Maintenance, 03/21/23 4:56:00 PM EST, [facility], [facility], cm, 03/15/23 9:56:00 EDT, Height, 75.8, kg, 09/20/22 9:15:00 EDT, Dry Weight Start Date: 03/21/23 Status: Ordered Medication Dispense Status: Completed Quantity: 18.0 Unit: g Total Allowed Fills: 1 Fills Dispensed: 0 Vitamin C 500 mg oral tablet 1 tablet = 500 mg, By Mouth, 3 times a day, # 270 tablet, 2 Refills, Maintenance, 06/11/23 9:53:00 AM EST, Tablet, [id number], Partial fill upon patient request if the prescription isfor a schedule II opioid drug., 158, cm, 06/11/23 9:10:00 EST, Height, 75.8, kg, 09/20/22 9:15:00 EDT, Dry Weight Start Date: 06/11/23 Status: Ordered Medication Dispense Status: Completed Quantity: 270.0 Unit: tablet Total Allowed Fills: 3 Fills Dispensed: 0 Vitamin E = 400 International_Units, By Mouth, 0 Refills, Maintenance, 04/04/23 1:00:00 PM EST, Partial fill upon patient request if the prescription is for a schedule II opioid drug. Start Date: 04/04/23 Status: Ordered Medication Dispense Status: Completed Total Allowed Fills: 1 Fills Dispensed: 0 zinc sulfate 220 mg oral capsule 220 mg, 1, capsule, By Mouth, Daily, # 90 capsule, Refills 3, Tot. Refills 3, Maintenance, 09/18/24 2:10:00 PM EDT, Route to Pharmacy Electronically, [facility], Partial fill upon patient request if the prescription is for a schedule II opioid drug., 157, cm, 09/03/24 7:28:00 EDT, Height, 83,kg, 04/23/24 8:46:00 EST, Dry Weight Start Date: 09/18/24 Status: Ordered Medication Dispense Status: Completed Quantity: 90.0 Unit: capsule Total Allowed Fills: 4 Fills Dispensed: 0 ZyrTEC 10 mg oral tablet 1 tablet = 10 mg, By Mouth, Daily, # 30 tablet, 0 Refills, Maintenance, 12/02/24 5:00:00 PM EDT, Tablet, Partial fill upon patient request if the prescription is for a schedule II opioid drug. Start Date: 12/02/24 Status: Ordered Medication Dispense Status: Completed Quantity: 30.0 Unit: tablet Total Allowed Fills: 1 Fills Dispensed: 0 Problem List Condition Confirmation Course Effective Dates Status H ealth Status Informant Anticonvulsant causing adverse effect in therapeutic use: zonisamide 1 Confirmed Active Asthma Confirmed Active Edema: bilateral leg edema:pitting edema R lower leg & foot; min non pitting edema L Confirmed Active Carpal tunnel syndrome, bilaterally Confirmed Active Sleep apnea, central 2 Confirmed Active Change of medication: Opioid elimination 3, 4 Confirmed Active Somnolence, daytime: intermittent/occasiona l Confirmed Active Decreased range of motion of neck Confirmed Active Decreased range of motion of lumbar spine: with extension Confirmed Active Degenerative lumbar disc Confirmed Active Fatigue Confirmed Active Family history of multiple sclerosis: mother & maternal aunt Confirmed Active Limitation of activities due to disability 5, 6, 7, 8, 9, 10, 11, 12, 13, 14, 15 Confirmed Active Gastroesophageal reflux disease(GERD) Confirmed Active History of pulmonary embolism Confirmed 2000 Active Status post bariatric surgery 16 Confirmed 09/2001 Active Status post hand surgery 17 Confirmed 10/05/15 Active Status post repair of hiatal hernia 18 Confirmed Active Hard of hearing; wears hearing aide right side Confirmed Active Hip pain, right Confirmed Active Status post carpal tunnel release 19 Confirmed 06/27/04 Active History of syncope Confirmed Active Leukopenia, mild, chronic Confirmed Active Decreased vision in both eyes Confirmed Active Anemia, microcytic 20 Confirmed 08/2001 Active Migraines Confirmed Active Depression Confirmed Active Myofascial pain, regional Confirmed Active Neck pain, mechanical Confirmed Active Lack of adequate sleep Confirmed Active Sleep apnea: obstructive sleep apnea syndrome 21, 22 Confirmed Active Adverse effect of opioid, initial encounter: buccal buprenorphine Confirmed Active Optic neuritis Confirmed Active Osteoporosis Confirmed Active Painful paresthesias, hands and feet; intermittent Confirmed Active Routine medical exam Confirmed Active Routine check-up Confirmed Active Vestibular vertigo Confirmed Active Pes planus, bilaterally Confirmed Active Status post repair of umbilical hernia 23 Confirmed 07/19/10 Active ; Severe obesity (BMI 35.0-39.9) with comorbidity Confirmed Active Sickle cell trait Confirmed Active Persistent moderate somatic symptom disorder Confirmed Active Status post insertion of inferior vena caval filter Confirmed Active Subclinical hypothyroidism Confirmed Active 1Zonisamide prescribed 11/30/10 to address both abdominal pain & LE neuropathic pain. Experiencedvomiting & ? incr'd abdominal pain at 100mg/day, but pushed to 150mg - it just made it worse. Trial abandoned. 2demonstrated, in addtion to severe obstructive apnea, on sleep study 09/10/2008 at [facility] of 3Morphine tapered to elim. 6->11/2022 w last opioid dose on/about 11/22/22 4s/p medication elimination trial--off opioids from 2004 to early 01/2006 5Updated Oswestry Disability Index: 42% (19/45; severe disability ) on 11/18/24. 6Updated Oswestry Disability Index: 51.1% ( severe disability ); updated [place] Back Pain Scale: 34 both on 11/26/23 7updated [place] Disability Index: 50% (severe disability ) on 06/29/22, updated [place] Pain Scale: 26 on 06/29/22 8Updated [place] Disability Index: 47% (21/45; severe disability ); updated [place] Pain Disability Scale score: 38 both 08/25/20 9Updated [place] Disability Index: 48% ( severe disability ) on 03/11/19; updated [place] Pain Disability Scale score: 42 on 03/11/19 10Updated [place] Disability Index: 44% ( severe disability ) on 08/23/17; updated [place] Disability Scale score: 44 on 08/23/17. 11Updated [place] Disability Index: 53% (24/45; severe disability ) on 07/31/16; updated [place] Disability Scale score: 34 on 07/31/16. 12Updated [place] Disability Index: 40% ( moderate disability ) on 04/23/15; updated [place] Disability Scale score: 19 on 06/24/14. 13Updated [place] Disability Index: 34% ( moderate disability ) on 10/31/13; initial [place] Pain Disability Scale score: 28 on 10/31/13. 14Updated [place] Disability Index: 36% ( moderate disability ) on 12/12/11. 15Initial [place] Disability Index: 26% ( moderate disability ) on 11/30/10. vertical gastric bypass by James Royal MD at [facility] 17On 10/05/2015 underwent left hand common digital nerve injury wound exploration, partial common digital nerve laceration repair by Honey Crespo M.D. at [facility] 18On 09/19/2016 underwent laparoscopic hiatal hernia repair by Cameron Castaneda MD at [facility] 19On 06/27/2004 underwent left carpal tunnel release for carpal tunnel syndrome by Tyrone Heard M.D. at [facility]. 20progressive microcytic hypochromic anemia ; normal Fe studies and normal B12 and folate 08/27/2008 21Polysomnogram 10/19/20: Overall AHI: 27.5; REM AHI: 22.5; NREM AHI: 27.6; Supine AHI: 27.5 Lowest O2 sat during sleep: 90.0%. EtCO2: average: 52.3 torr. / max.: 58.4 torr. Interpretation: incr delta wave & decr REM sleep.; many obstructive hypopneas were noted in NREM & during brief periods of REM. Rare brief central apneas & hypopneas. Dx: 1. Obstructive sleep apnea, moderate 2-Hypoventilation 22severe; with AHI of 67.4 demonstrated on sleep study 09/10/2008 at [facility]. Diagnostic laparoscopy; 2. Lysis of adhesions; 3. Reduction of periumbilical hernia and primary closure of the defect for prolonged left-sided abdominal pain with nausea and occasional vomiting, attributed to adhesions & periumbilical hernia, by Cameron Castaneda M.D. at [facility] Social History Social History Type Response Smoking Status Never (less than 100 in lifetime) entered on: 11/15/22 Sexual Orientation Self described orien tation: ; Straight or heterosexual Sex Sex Representation Female (finding) Patient Care team information Care Team Personnel Name: Jeana Amezquita RN Position: [facility] RN Member Role: Primary Care Nurse Name: Tabby Boykin RN Position: [facility] RN Member Role: Primary Care Nurse Name: Kala López MD Position: Reference Physician Member Role: PCP Address: [address] [place] [address] [address] [facility] [place], [place] [address] Telecom: Name: Christy Murcia RN Position: [facility] RN Member Role: Primary Care Nurse Name: Robi Garrett MD Position: [facility] Renal MD Member Role: Lifetime Consulting Physician Address: [address] [place] [address] [address] [facility] [place], [place] [address] Telecom: Name: Mable John RN Position: S RN Member Role: Primary Care Nurse Name: Corey Arellano RN Position: S RN Member Role: Primary Care Nurse Name: Tabby Soto RN Position: S RN Member Role: Primary Care Nurse Name: Ayaan Maravilla RN Position: [facility] ED RN W/OE and Tasks Member Role: Primary Care Nurse Name: Milton Duque RN Position: [facility] RN Member Role: Primary Care Nurse Name: Brayden Brink Jr, MD Position: [facility] Anesthesiology MD Member Role: Lifetime Consulting Physician Address: [address] [place] [address]- Telecom: Name: Jacklyn Lorenzo RN Position: [facility] RN Member Role: Primary Care Nurse Name: Manny Gastelum RN Position: [facility] RN Member Role: Primary Care Nurse Name: Tyrone Mg MD Position: [facility] Physician - Oncology Member Role: Lifetime Consulting Physician Address: [address] [facility] [place] [address]- Telecom: Name: Aisha Henao RN Position: [facility] AMB Nurse Member Role: Primary Care Nurse Name: Sammie Garcia RN Position: [facility] RN Member Role: Primary Care Nurse Name: Vanessa Velásquez RN Position: [facility] RN Member Role: Primary Care Nurse Name: Beba Hu RN Position: [facility] AMB Nurse Member Role: Primary Care Nurse Name: Annamaria Thao RN Position: [facility] ANT Office Staff Member Role: Primary Care Nurse Name: Parisa Guerrero RN Position: [facility] SN RN Member Role: Primary Care Nurse Care Team Related Persons Name: FRANKY BATES Name: JENSEN CHICAS Name: YOSELIN CHICAS Name: EB CHICAS Name: NIRMAL SHER Insurance Providers Guarantor name: HONEY CHICAS Health Plan Information #: 1 Payer: MEDICARE B Payer Identifier: Member Number: [id number] Group Number: Subscriber Identifier: Relationship to Subscriber: self Coverage Type: NA Coverage Verification Date: NA Telecom: NA Address: Health Plan Information #: 2 Payer: [employer] Payer Identifier: Member Number: [id number] Group Number: Subscriber Identifier: Relationship to Subscriber: self Coverage Type: MEDICAID Coverage Verification Date: Telecom: Address:
[2025-04-29 14:53] LABS: NT Pro B Type Natriuretic Pept 123.7 pg/mL (<300)
== END 2025-04-29 10:12 | disposition home or self-care (01) ==
LOC: HO.HKASLDS 10:11
PROVIDERS: PCP Internal Medicine; Visit Provider Physician Assistant
DX: J45.901 Unspecified asthma with (acute) exacerbation (principal); J01.90 Acute sinusitis, unspecified; B97.89 Other viral agents as the cause of diseases classified elsewhere; H92.01 Otalgia, right ear; R60.0 Localized edema; Z79.51 Long term (current) use of inhaled steroids
CPT/HCPCS: 36415; 83880; 99212

== ENCOUNTER 2025-04-29 10:11 | Outpatient (AMB) | payer MEDICARE, MEDICAID, SELFPAY ==
--- OUTSIDE RECORDS SUMMARY | 2025-04-29 09:20 | XMS_ITS | Encounter Summary ---
[facility] Address [address] [place] [address] Care Team Providers Care Multimedia Authoring Specialist Name Role Phone Kala López MD Primary Care Provider +1- [phone] Reason for Visit * Clinic-Administered Medication (Routine) - Authorized Specialty Diagnoses / Procedures Referred By Contac t Referred To Contact Neurology Diagnoses Chronic migraine without aura without status migrainosus, not intractable Christine Escobar MD [address] [place] [address] Phone: tel: fax: Christine Escobar MD Phone: tel: fax: Referral ID Status Reason Start Date Expiration Date Visits Requested Visits Authorized [id number] Authorized Specialty Services Required 01/21/2025 01/21/2026 5 4 Encounter Details Date Type Department Care Team (Latest Contact Info) Description 04/29/2025 9:20 AM EST Procedure visit [facility] [address] [facility] [address] [place] [address] Christine Escobar MD [address] [place] [address] Migraine without aura and without status migrainosus, [...] MUSCLES L side (sites) R side (sites) Steward/Stewardess Lounge 5 units (1) 5 units (1) Procerus [...] Description 06/19/2025 9:00 AM EST Office Visit [address] [phone] Rain Dyer PA [address] [place] [address] 07/29/2025 10:00 AM EDT Procedure visit [address] [phone] Christine Escobar MD [address] [place] [address] documented as of this encounter Visit Diagnoses [...] 04/29/2025 documented in this encounter Care Teams Multimedia Authoring Specialist Relationship Specialty Start Date End Date Kala López MD [address] [place] [address] PCP - General 11/04/16 documented as of this encounter
--- NOTE | 2025-04-29 10:16 | MHC.OFFWIV ---
Intake Vital Signs 04/29/25 10:18 Height 5 ft 4 in Weight 230 lb BMI 39.5 BP 137/85 Blood Pressure Location Lt brachial Position Sitting Respiration 20 Pulse 88 Pulse Source Pulse Oximeter Temp 98.2 F Temp Source Oral Pulse Oximetry (%) 97 Oxygen Delivery Method Room Air Intake Visit Reasons: EP - Leg edema, chest discomfort (S/W nurse) Intake Note: Ep complains of a chronic right leg edema since 2000 however it became severe in the last four weeks. She also complains of right earache, chest congestion and cough (yellow sputum) for the last four weeks. Patient Tobacco Use Status: Never used Tobacco Allergies acetaminophen (From Percocet) Allergy (Verified 04/29/25 10:30) Hives aluminum hydroxide (From Mylanta) Allergy (Verified 04/29/25 10:30) Hives amitriptyline Allergy (Verified 04/29/25 10:30) Hives aspirin Allergy (Verified 04/29/25 10:30) Anaphylaxis bacitracin (From Neosporin ([id number]-uui-[id number])) Allergy (Verified 04/29/25 10:30) Hives bismuth subsalicylate (From Maalox Total Relief (bismuth)) Allergy (Verified 04/29/25 10:30) Hives calcium carbonate (From Mylanta) Allergy (Verified 04/29/25 10:30) Hives camphor (From Iona [place]) Allergy (Verified 04/29/25 10:30) Hives chlordiazepoxide (From Librium) Allergy (Verified 04/29/25 10:30) Hives clonazepam Allergy (Verified 04/29/25 10:30) Unknown doxycycline Allergy (Verified 04/29/25 10:30) Hives dronabinol (From Marinol) Allergy (Verified 04/29/25 10:30) Unknown duloxetine (From Cymbalta) Allergy (Verified 04/29/25 10:30) Hives heparin Allergy (Verified 04/29/25 10:30) Unknown hydromorphone (From Dilaudid) Allergy (Verified 04/29/25 10:30) Hives ibuprofen (From Motrin) Allergy (Verified 04/29/25 10:30) Hives lamotrigine (From Lamictal) Allergy (Verified 04/29/25 10:30) Unknown lidocaine Allergy (Verified 04/29/25 10:30) Hives magnesium (From Mylanta) Allergy (Verified 04/29/25 10:30) Hives magnesium hydroxide (From Mylanta) Allergy (Verified 04/29/25 10:30) Hives menthol (From Iona [place]) Allergy (Verified 04/29/25 10:30) Hives mometasone furoate (From Asmanex Twisthaler) Allergy (Verified 04/29/25 10:30) Hives neomycin (From Neosporin (gcp-twj-waayd)) Allergy (Verified 04/29/25 10:30) Hives nortriptyline Allergy (Verified 04/29/25 10:30) Hives ondansetron (From Zofran) Allergy (Verified 04/29/25 10:30) Hives oxycodone (From Percocet) Allergy (Verified 04/29/25 10:30) Hives Penicillins (PCN) Allergy (Verified 04/29/25 10:30) Anaphylaxis polymyxin B (From Neosporin (ywu-aru-lpuuo)) Allergy (Verified 04/29/25 10:30) Hives scopolamine Allergy (Verified 04/29/25 10:30) Unknown simethicone (From Mylanta) Allergy (Verified 04/29/25 10:30) Hives sulfamethoxazole (From Bactrim) Allergy (Verified 04/29/25 10:30) Hives trimethoprim (From Bactrim) Allergy (Verified 04/29/25 10:30) Hives Do you need a note to return to daycare/school/sports/work: No HPI HPI Comments History of Present Illness Details History of Present Illness - The patient is a 54-year-old female here with her case management coordinator, with a past med hx of past medical history of chronic kidney disease, GERD, asthma, lymphedema, migraines, anemia, anxiety, depression, and fibromyalgia presenting for evaluation of respiratory symptoms and worsening lymphedema. - For the past four weeks, the patient has experienced congestion, right ear pain, and a productive cough. - She was seen by her supervisor mails, who suspected a viral etiology and recommended increasing her Symbicort. - The increased Symbicort has helped her breathing but causes sleepiness. - She continues to experience shortness of breath only on exertion, not at rest and uses her Ventolin rescue inhaler approximately twice daily. - She endorses head congestion and a feeling of facial fullness but denies fevers or wheezing. - She has not used any OTC meds. - She reports a 10-pound weight gain secondary to fluid retention, with bilateral lower extremity edema, R>L, she normally does not have swelling in her left leg - She has a history of lymphedema only in her right leg and is scheduled to see a specialist at [facility] in June. She had an appt this month but felt an 8am appt was too early for her to get up and be driven to [place] so she rescheduled it. - She reports her compression wraps no longer fit due to the increased swelling, and her at-home pump and manual wrapping have not been effective. Denies pain in the legs. - The affected area becomes warm to the touch without erythema, and she has previously been hospitalized and treated with IV Vancomycin for similar episodes. She tells me she needs antibiotics to help the swelling go down. - Her history is notable for a pulmonary embolism in 2000, for which she has a [place]/IVC filter and is not on anticoagulation. - She denies any known history of congestive heart failure. - She tells me she had an echo a few years ago and thinks it was normal. Review of Systems - Constitutional: Reports fatigue. Denies fever. - HEENT: Reports head congestion, facial fullness, and right ear pain. - Respiratory: Reports productive cough for one month and dyspnea on exertion. - Extremities: Reports bilateral lower extremity edema, a 10-pound fluid weight gain, and warmth in the leg without erythema. All systems reviewed and are unremarkable except as noted in HPI Physical Exam General: Cooperative, healthy appearing, comfortable, no acute distress and well developed Orientation: Patient oriented x3 Limitations: No limitations Head: Normal to inspection, atrauamatic Ears: Hearing normal bilaterally, EAC's normal bilaterally, TM's normal bilaterally Nose: Normal External nose present, no nasal congestion Face and sinus: Normal facial exam, no sinus tenderness Eyes: Appearance normal, both eyes and all related structures Mouth: moist mucus membranes, posterior oropharynx with slight erythema, normal tonsils with no exudate Neck: Normal visual inspection and Yes full ROM Respiratory: Normal respiratory effort and able to speak in complete sentences. Clear to auscultation throughout, no wheezes, rales and rhonchi. Cardiac: Regular rate and rhythm, Normal S1 and S2, no murmurs, rubs or gallops Skin: No rashes or lesions noted Neuro: Patient oriented x3, gait normal Extremities: bilateral LE trace pitting edema, R>L, no warmth, erythema or ecchymosis noted, no lesions or rashes noted. onychomycosis of great toe on right foot. negative Homans bilaterally. [facility] Medical History (Updated 04/29/25 @ 10:44 by Rosalba Aguillon PA-C) Bilateral leg edema CKD (chronic kidney disease) Anxiety Fibromyalgia Anemia GERD (gastroesophageal reflux disease) Cervical radiculopathy Depression Asthma Migraines Lymphedema Surgical History History of carpal tunnel surgery of left wrist History of repair of hiatal hernia H/O laparoscopy Gastric bypass status for obesity H/O hernia repair History of colonoscopy (~07/07/15) Family History Other Atrial fibrillation Social History Housing: Apartment Patient Tobacco Use Status: Never used Tobacco e-Cigarette/Vaping Use: Never Used service: No Current occupational status: disabled Physical Exam Vital Signs: Last Vital Signs Temp 98.2 F 04/29/25 10:18 Pulse 88 04/29/25 10:18 Resp 20 04/29/25 10:18 BP 137/85 04/29/25 10:18 Pulse Ox 97 04/29/25 10:18 Oxygen Delivery Method Room Air 04/29/25 10:18 BMI result Body Mass Index 39.5 Assessment & Plan Assessment & Plan (1) Bilateral leg edema: Code(s): R60.0 - Localized edema Plan: Lymphedema with Acute Exacerbation vs new onset CHF vs DVT The patient reports a 10-pound weight gain and increased bilateral lower extremity edema, which is preventing her from using her compression wraps. Given the bilateral nature of the swelling which is not typical for her, her shortness of breath and to rule out a cardiac contribution, a lab test for heart failure will be ordered. Her lungs were clear on exam, her O2 is 97% so this is less likely. DVT is possible as she has a hx of PE and has an IVC filter but unlikely as bilateral, no skin color changes, no pain. Will defer US for now. I do not see any evidence of cellulitis therefore, antibiotics are not indicated at this time. I will message Dr. Woody with the findings and plan. History of hospitalizations is limited as we have no records. Further management will be decided after the lab results are available, and I will call the patient later today to discuss the results and next steps. Patient was informed and verbally consented to the use of an ambient scribe for clinic note documentation during this visit. (2) Acute viral sinusitis: Code(s): J01.90 - Acute sinusitis, unspecified; B97.89 - Other viral agents as the cause of diseases classified elsewhere Plan: Mild Asthma Exacerbation 2/2 Upper Respiratory Infection with sinusitis The patient presents with a four-week history of productive cough, congestion, and ear pain consistent with an upper respiratory infection with an associated asthma exacerbation. Her lungs are clear on exam, frontal and maxillary sinsuses were ttp, right EAC tender, with erythema and edema, no infection, The plan is for her to continue the increased Symbicort as directed by her supervisor mails and use her Ventolin rescue inhaler as needed, Q6H. Sent 20mg pred x 5 days to help with dyspnea on exertion and sinus symptoms. Sent Zpak as no resolution in one month and for it's anti inflammatory effects. Sent steroid ear drops for right EAC pain/ttp. Can use OTC meds such as a decongestant, as needed, for symptoms. Continue daily allergy med. (3) Otalgia, right ear: Code(s): H92.01 - Otalgia, right ear Plan: as above (4) Mild asthma exacerbation: Code(s): J45.901 - Unspecified asthma with (acute) exacerbation Plan: as above Orders: Orders NT Pro B Type Natriuretic Pept Today R60.0 - Localized edema Medications: New hydrocortisone-acetic acid 1-2 % 4 drps otic (ear) right TID 10 mL 0RF prednisone 20 mg PO QAM 5 tabs 0RF azithromycin For 250 mg dose pack: take 500 mg today (day 1), then 250 mg for 4 days (days 2-5) PO 6 tabs 0RF Coding Level of Care Code Est Pt Level 4 (06796) Diagnoses Bilateral leg edema R60.0 Acute viral sinusitis J01.90; B97.89 Otalgia, right ear H92.01 Mild asthma exacerbation J45.901
[2025-04-29 10:18] VITALS: BP 137/85; PULSE 88; RESP 20; TEMP 36.8; O2SAT 97; BMI 39.5
--- OUTSIDE RECORDS SUMMARY | 2025-04-29 12:27 | XMS_ITS | Continuity of Care Document ---
Author Organization [facility] [address] [facility] [address] [place] [address] Phone [phone] Care Team Providers Care Culinary Chef Name Role Phone Kala López M.D. 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 07/26/2022 Cmwvtdfyhg69ty Tablets 1 by mouth every day 90tabs Kala Branch M.D. Vitamin A3mg (37649 Ut) Capsules Unknown Folic Jasy240baq/ML Liquid 1 ml daily Unknown Zyrtec Vucdlnh28cn Tablets 1 by mouth bid Unknown Timolol Maleate0.5% Solution Corey Smart Tkbwziz12iv Tablets Unknown Dgxrjvoy153pt/ml Solution Auto-Inject Unknown 000 Ljyjaysygs7NI/10ML Suspension Maria Victoria Juarez Iyvsqiqvhr23kt Tablets DR jacques twice daily Unknown Vitamin I876lfi (1000 Ut) Capsules 4 by mouth every day 100caps Kala Branch M.D. Calcium Citrate Chewy Ozca818-54.5mg-mcg Chewtabs 1 by mouth twice a day Kala Branch M.D. Vitamin C500mg Tablets 1 by mouth 3 times daily Unknown Nfjnbjsj91ks Capsules 1 bid Unknown Qoob065(50Zn) mg Capsules 1 qd Unknown Lidocaine-Prilocaine2. 5-2.5% Cream prn Unknown Uyumidvzb346da Tablets 1 by mouth twice daily Unknown Betamethasone Dipropionate0.05% Cream apply twice daily to affected area as needed Unknown Tylenol Extra Zbpumdzy435cc Tablets 2 by mouth twice daily as needed Unknown Duloxetine KAV77yi Caps DR Umanzor take 1 capsule by mouth twice daily Unknown Duloxetine ENE59li Caps DR Umanzor Take 1 by mouth every day Unknown Igvaa78859-27173Nhsj Caps DR Umanzor Take 2 capsules by mouth four times daily Unknown Ventolin IYG403(90Base) mcg/Act Aerosol Use as directed every 4 to 6 hours Kala López M.D. Azelastine HCL (Nasal)0.1% Solution 1 spray to each nostril twice daily Carol Mayberry MD Fluticasone Jbscuwgljx60fjl/Act Suspension Two sprays to each nostril twice daily Kala López M.D. Meclizine NPG94ax Tablets Take 1 tablet four times daily Unknown Betamethasone Valerate0.1% Cream Use daily up to four times Kala López M.D. Swskmigij04-2.5mcg/Act Aerosol 2 puffs twice daily Kala López [...] Interpretive Guide: See Comment: 3 Albumin 08/14/2022 [facility] Albumin 4.6 GM/DL (3.4-4.8) 25Oh Vitamin D 08/14/2022 [facility] 25Oh Vitamin D 65.3 NG/ML High (20-50) TSH 08/14/2022 [facility] TSH 1.10 uIU/mL (0.4-4.2) Calcium 08/14/2022 [facility] Calcium 9.6 mg/dL (8.6-10.5 ) PTH, Intact 08/14/2022 [facility] PTH, Intact 72 pg/mL High (15-65) TSH With Reflex To FT4 07/26/2022 [facility] TSH With Reflex To FT4 1.50 uIU/mL (0.4-4.2) PTH, Intact 07/26/2022 [facility] PTH, Intact 44 pg/mL (15-65) Calcium 07/26/2022 [facility] Calcium 9.8 mg/dL (8.6-10.5 ) 25Oh Vitamin D 07/26/2022 [facility] 25Oh Vitamin D 60.2 NG/ML High (20-50) Albumin 07/26/2022 [facility] Albumin 4.3 GM/DL (3.4-4.8) TSH 04/13/2022 [facility] TSH <pending> Calcium 04/13/2022 [facility] Calcium <pending> Albumin 04/13/2022 [facility] Albumin <pending> PTH, Intact 04/13/2022 [facility] PTH, Intact <pending> 25Oh Vitamin D 04/13/2022 [facility] 25Oh Vitamin D <pending> 1 Vitamin D deficiency has been defined by the [place] of [employer] and an Endocrine Society practice guideline as a level of serum 25-OH vitamin D less than 20 ng/mL (1,2). The Endocrine Society went on to further define vitamin D insufficiency as a level between 21 and 29 ng/mL (2). 1. IOM ([place] of [employer]). 2010. Dietary reference intakes for [...] measured NTx value is <or=38 nM BCE/mM GENERAL OPERATIONS MANAGER, or NTx has decreased >or=30% from baseline.[1] [...] measured NTx value is <or=38 nM BCE/mM GENERAL OPERATIONS MANAGER, or NTx has decreased >or=30% from baseline.[1] [...] Res.11(1):M757,1995 Procedures Date Code Description Status 07/31/2023 08619 Collection Of Venous Blood B y Venipuncture Completed 07/26/2022 67360 Collection Of Venous Blood B y Venipuncture [...]
--- OUTSIDE RECORDS SUMMARY | 2025-04-29 12:27 | XMS_ITS | Patient Health Record ---
Author Organization [facility] Address [address] [place] [address] Care Team Providers Care Senior Technical Specialist Name Role Phone Chey DAY, Brooke Alvarez Primary Care Provider Maximo Mackenzie Unavailable [phone] Allergies Allergen (clinical drug ingredient) Drug/Non Drug [...] Status W/U Status Risk Notes Problem Edema (79254699) Edema (782.3) Active confirmed Problem Ingrowing nail (401774707) Ingrowing Nail (703.0) Active confirmed Problem Onychomycosis (896829898) Onychomycosis (110.1) Active confirmed Problem Pain in limb (32262612) Pain in Limb (729.5) Active confirmed Plan Of Treatment Pending Test Test Name Order Date [id number] NAIL, 6 OR MORE 03/13/2012 [id number] NAIL, 6 OR MORE 06/10/2012 [id number]-Kimbixrk Plate 06/10/2012 Insurance Providers Payer Name Payer Address Payer Phone Subscriber Number Group Number Insured Name Patient Relationship to Insured Coverage Start Date Coverage End Date Medicare National Govt Svcs Inc [address] [place] [phone] [id number] Honey Quispe Self - patient is the [...]
--- OUTSIDE RECORDS SUMMARY | 2025-04-29 12:27 | XMS_ITS | Clinical Summary ---
Author Organization [address] [facility] Address [address] [place] [address] Phone Care Team Providers Care Window Repairer Name Role Phone Kala López MD Primary Care Provider [phone] Allergies Active Allergy Reactions Criticality Noted Date [...] (two) times a day if needed. Active multivitamin with minerals liquid Take by [...] every 28 (twenty-eight) days. 1 mL 5 Active baclofen (LIORESAL) 10 mg tablet TAKE 1 TO 2 TABLETS BY MOUTH AT NIGHT 60 tablet 5 5 Active desoximetasone (TOPICORT) 0.25 % ointment Apply 0.25 Applications topically 2 (two) times a day. Active Hospital, Clinic, or Other Facility Administered Medication Ordered Dose Route Frequency Start Date End Date Status onabotulinumtoxinA (BOTOX) 200 unit injection 200 UnitsIndications:Migraine without aura and without status migrainosus, not intractable 200 Units IM Once 04/29/2025 04/29/2025 Ended Active Problems Problem Noted Date Diagnosed Date Anemia 11/13/2016 Encounters Date Type Department Care Team Description 04/29/2025 9:20 AM EST Procedure visit [address] [phone] Christine Escobar MD Migraine without aura and without status migrainosus, not intractable (Primary Dx) 03/20/2025 3:00 PM EST Office Visit [address] [phone] Rain Dyer PA Migraine without aura and without status migrainosus, not intractable (Primary Dx) 02/25/[address] [address] Christine Escobar MD 02/11/2025 10:00 AM EDT Procedure visit [facility] [address] [facility] [address] [place] [phone] Christine Escobar MD Migraine without aura and without status migrainosus, not intractable (Primary Dx) from Last 3 Months Immunizations Immunization Administration Dates Next Due Pfizer SARS-CoV-2 COVID-19, mRNA, LNP-S, preservative free 10/25/2021,07/29/2020,07/08/2020 Surgical History Surgery Date Site/Laterality Comments GASTRIC BYPASS PROCEDURE:GASTRIC BYPASS ABDOMINAL ADHESION SURGERY PROCEDURE:ABDOMINAL ADHESION SURGERY CARPAL TUNNEL RELEASE Left Medical History Medical History Date Comments Anemia DX:Anemia GERD (gastroesophageal reflux disease) DX:GERD (gastroesophageal reflux disease) Asthma DX:Asthma 'Ttayp-edq-bbbmp' wit h signs of malnutrition DX:'Ccmas-kdu-lqand' with signs of malnutrition Osteoarthritis DX:Osteoarthriti s [...] not to disclose 2023 10:12 AM EST Last Filed Vital Signs Vital Sign Reading Time Taken Comments Blood Pressure 124/84 03/20/2025 3:09 PM EST Pulse 97 03/20/2025 3:09 PM EST Temperature 36.7 C (98 F) 03/20/2025 3:09 PM EST Respiratory Rate 20 03/25/2024 11:26 AM EST Oxygen Saturation 97% 03/20/2025 3:09 PM EST Inhaled Oxygen Concentration - - Weight 86.2 kg (190 lb) 07/04/2024 2:57 PM EST Height 160 cm (5' 3 ) 07/04/2024 2:57 PM EST Body Mass Index 33.66 07/04/2024 2:57 PM EST Plan of Treatment Upcoming Encounters Date Type Department Care Team (Late st Contact Info) Description 06/19/2025 9:00 AM EST Office Visit [facility] [address] [facility] [address] [place] [address] Rain Dyer PA [address] [place] [address] 07/29/2025 10:00 AM EDT Procedure visit [facility] [address] [phone] Christine Escobar MD [address] [place], [place] [phone] Health Maintenance Due Date Last Done Comments Breast Cancer Screening 1970 Colorectal Cancer Screening: Colonoscopy 1970 Drug Screen 1970 Non-Opioid Controlled Substance Agreement 1970 Hepatitis B Vaccines (1 of 3 [...] 2025 03/13/2022, 10/25/2021, 07/29/2020, Additional history exists DTaP,Tdap,and Td Vaccines (3 - Td or Tdap) 09/28/2025 09/29/2015, 04/16/2007 Hypertension/CHF/CAD Annual BMP Blood Test 01/22/2026 01/22/2025 Pneumococcal Vaccine: 50+ Years Completed 12/20/2023, 12/31/2015, 02/11/2015, Additional history exists Influenza Vaccine Completed 02/25/2025, , 03/15/2023, Additional history exists HIB Vaccines Aged Out [...] Procedure Name Priority Date/Time Associated Diagnosis Comments RENAL FUNCTION PANEL Routine 01/22/2025 10:59 AM EDT Chronic kidney disease, unspecified Lymphedema, not elsewhere classified from Last 3 Months or Most Recently Relevant to Health Maintenance Results * Renal function panel (01/22/2025 10:59 AM EDT) Sodium 140 133 - 145 mmol/L LAB CHEMISTRY METHOD 01/22/2025 2:48 PM EDT [facility] Potassium 4.1 3.5 - 5.5 mmol/L LAB CHEMISTRY METHOD 01/22/2025 2:48 PM EDT [facility] Chloride 104 96 - 110 mmol/L LAB CHEMISTRY METHOD 01/22/2025 2:48 PM EDT [facility] CO2 32 21 - 32 mmol/L LAB CHEMISTRY METHOD 01/22/2025 2:48 PM EDT [facility] Anion Gap 4 3 - 11 LAB CHEMISTRY METHOD 01/22/2025 2:48 PM EDT [facility] Glucose 86 70 - 100 mg/dL LAB CHEMISTRY METHOD 01/22/2025 2:48 PM T [facility] BUN 22 5 - 25 mg/dL LAB CHEMISTRY METHOD 01/22/2025 2:48 PM EDT [facility] Creatinine 0.70 0.50 - 1.10 mg/dL LAB CHEMISTRY METHOD 01/22/2025 2:48 PM EDT [facility] eGFR 102 >=60 mL/min/1. 73m2 LAB CHEMISTRY METHOD 01/22/2025 2:48 PM EDT [facility] Comment:Calculation based on the Chronic Kidney Disease Epidemiology Collaboration (CKD-EPI) equation refit without adjustment for race. BUN/Creatinine Ratio 31.4 LAB CHEMISTRY METHOD 01/22/2025 2:48 PM EDT [facility] Albumin 3.8 3.2 - 5.0 g/dL LAB CHEMISTRY METHOD 01/22/2025 2:48 PM T [facility] Calcium 9.2 8.5 - 10.5 mg/dL LAB CHEMISTRY METHOD 01/22/2025 2:48 PM [facility] Phosphorus 4.1 2.5 - 4.5 mg/dL LAB CHEMISTRY METHOD 01/22/2025 2:48 PM T [facility] Blood Venous blood specimen / Unknown Venipuncture / Unknown 01/22/2025 10:59 AM EDT 01/22/2025 11:45 AM EDT us Selvin Arce MD LAB BLOOD ORDERABLES Final Res ult [facility] [address] [place] [address], from Last 3 Months or Most Recently Relevant to Health Maintenance Insurance MEDICARE [place]ICAID [place] Care Teams Window Repairer Relationship Specialty Start Date End Date Kala López MD [address] [place] [address] PCP - General 11/04/16
--- OUTSIDE RECORDS SUMMARY | 2025-04-29 12:27 | XMS_ITS | Clinical Summary ---
Author Organization [facility] Prior to 10/11/24 Address [address] [place] [address] Care Team Providers Care Preschool Director Name Role Phone Kala López MD Primary Care Provider [phone] Allergies Active Allergy Reactions Criticality Noted Date [...] 4 (four) times a day. 0 Active Pkklucx-Riuxdvfxm-Hyi munson D (CALCIUM 500 PO) Take by [...] as needed. 0 Active vitamin A capsule 28042 units Take 10,000 Units by mouth 2 [...] age to complete this topic Care Teams Preschool Director Relationship Specialty Start Date End Date Kala López MD [address] [place] [address] PCP - General Internal Medicine 11/04/16
== END 2025-04-29 11:21 | disposition home or self-care (01) ==
LOC: HO.HMCWIS 10:11
PROVIDERS: PCP Internal Medicine; Visit Provider Physician Assistant
DX: R60.0 Localized edema (principal); J01.90 Acute sinusitis, unspecified; B97.89 Other viral agents as the cause of diseases classified elsewhere; H92.01 Otalgia, right ear; J45.901 Unspecified asthma with (acute) exacerbation

== ENCOUNTER 2025-05-01 12:43 | Outpatient (REF) | payer MEDICARE, MEDICAID, SELFPAY ==
--- NOTE | ~2025-05-01 | XR_ITS ---
EXAMINATION: XR CHEST 2 VIEWS HISTORY: R06.02 - Shortness of breath COMPARISON: There are no prior studies available for comparison. FINDINGS: PA and lateral views of the chest are submitted. There are linear opacities at the lung bases compatible with subsegmental atelectasis or scarring. There is no pleural effusion, pneumothorax, or pulmonary vascular congestion. The heart is normal in size. The bones are intact. XR/XR chest 2V IMPRESSION: Bibasilar subsegmental atelectasis versus scarring. Electronically signed by: Kris Potts MD 05/01/2025 02:42 PM EST
[2025-05-01 16:43] LABS: Anion Gap 12 (12-20); Blood Urea Nitrogen 17 mg/dL (9-16); Calcium 9.2 mg/dL (8.4-10.2); Carbon Dioxide 35 mmol/L (22-29); Chloride 99 mmol/L (96-108); Estimated Glomerular Filt Rate > 60; Magnesium 2.1 mg/dL (1.6-2.6); Potassium 3.0 mmol/L (3.3-5.1); Sodium 143 mmol/L (135-145)
== END 2025-05-01 12:44 | disposition home or self-care (01) ==
LOC: HO.XRAY 12:43
PROVIDERS: PCP Internal Medicine; Visit Provider Internal Medicine
DX: M79.89 Other specified soft tissue disorders (principal); R06.02 Shortness of breath; J45.30 Mild persistent asthma, uncomplicated; R60.0 Localized edema; I89.0 Lymphedema, not elsewhere classified
CPT/HCPCS: 36415; 71046; 80048; 83735; 99212

== ENCOUNTER 2025-05-01 12:43 | Outpatient (AMB) | payer MEDICARE, MEDICAID, SELFPAY ==
--- OUTSIDE RECORDS SUMMARY | 2025-04-29 09:20 | XMS_ITS | Encounter Summary ---
Author Organization [facility] Address [address] [place] [address] Care Team Providers Care Care Taker Name Role Phone Kala López MD Primary Care Provider +1- [phone] Reason for Visit * Clinic-Administered Medication (Routine) - Authorized Specialty Diagnoses / Procedures Referred By Contac t Referred To Contact Neurology Diagnoses Chronic migraine without aura without status migrainosus, not intractable Christine Escobar MD [address] [place] [address] Phone: tel: fax: Christine Escobar MD Phone: tel: fax: Referral ID Status Reason Start Date Expiration Date Visits Requested Visits Authorized [id number] Authorized Specialty Services Required 01/21/2025 01/21/2026 5 4 Encounter Details Date Type Department Care Team (Latest Contact Info) Description 04/29/2025 9:20 AM EST Procedure visit [facility] [address] [facility] [address] [place] [address] Christine Escobar MD [address] [place] [address] Migraine without aura and without status migrainosus, [...] MUSCLES L side (sites) R side (sites) Optometry Assistant 5 units (1) 5 units (1) Procerus [...] Description 06/19/2025 9:00 AM EST Office Visit [address] [phone] Rain Dyer PA [address] [place] [address] 07/29/2025 10:00 AM EDT Procedure visit [address] [phone] Christine Escobar MD [address] [place] [address] documented as of this encounter Visit Diagnoses [...] 04/29/2025 documented in this encounter Care Teams Care Taker Relationship Specialty Start Date End Date Kala López MD [address] [place] [address] PCP - General 11/04/16 documented as of this encounter
--- NOTE | 2025-05-01 13:00 | MHC.PC.OV ---
Vital Signs 05/01/25 13:02 Height 5 ft 4 in Weight 231 lb 6 oz BMI 39.7 BP 120/84 Blood Pressure Location Lt brachial Position Sitting Respiration 16 Pulse 78 Pulse Source Pulse Oximeter Temp 97.1 F Temp Source Temporal Artery Scan Pulse Oximetry (%) 96 Oxygen Delivery Method Room Air Intake Visit Reasons: Swelling of BLE, congestion, fluid in ear, SOB User Support Specialist Required: No Allergies acetaminophen (From Percocet) Allergy (Verified 05/01/25 13:01) Hives aluminum hydroxide (From Mylanta) Allergy (Verified 05/01/25 13:01) Hives amitriptyline Allergy (Verified 05/01/25 13:01) Hives aspirin Allergy (Verified 05/01/25 13:01) Anaphylaxis bacitracin (From Neosporin (aqv-lhh-swnam)) Allergy (Verified 05/01/25 13:01) Hives bismuth subsalicylate (From Maalox Total Relief (bismuth)) Allergy (Verified 05/01/25 13:01) Hives calcium carbonate (From Mylanta) Allergy (Verified 05/01/25 13:01) Hives camphor (From [place] Fowler) Allergy (Verified 05/01/25 13:01) Hives chlordiazepoxide (From Librium) Allergy (Verified 05/01/25 13:01) Hives clonazepam Allergy (Verified 05/01/25 13:01) Unknown doxycycline Allergy (Verified 05/01/25 13:01) Hives dronabinol (From Marinol) Allergy (Verified 05/01/25 13:01) Unknown duloxetine (From Cymbalta) Allergy (Verified 05/01/25 13:01) Hives heparin Allergy (Verified 05/01/25 13:01) Unknown hydromorphone (From Dilaudid) Allergy (Verified 05/01/25 13:01) Hives ibuprofen (From Motrin) Allergy (Verified 05/01/25 13:01) Hives lamotrigine (From Lamictal) Allergy (Verified 05/01/25 13:01) Unknown lidocaine Allergy (Verified 05/01/25 13:01) Hives magnesium (From Mylanta) Allergy (Verified 05/01/25 13:01) Hives magnesium hydroxide (From Mylanta) Allergy (Verified 05/01/25 13:01) Hives menthol (From [place] Fowler) Allergy (Verified 05/01/25 13:01) Hives mometasone furoate (From Asmanex Twisthaler) Allergy (Verified 05/01/25 13:01) Hives neomycin (From Neosporin (yux-cba-xrtnu)) Allergy (Verified 05/01/25 13:01) Hives nortriptyline Allergy (Verified 05/01/25 13:01) Hives ondansetron (From Zofran) Allergy (Verified 05/01/25 13:01) Hives oxycodone (From Percocet) Allergy (Verified 05/01/25 13:01) Hives Penicillins (PCN) Allergy (Verified 05/01/25 13:01) Anaphylaxis polymyxin B (From Neosporin (bzv-klu-ysghw)) Allergy (Verified 05/01/25 13:01) Hives scopolamine Allergy (Verified 05/01/25 13:01) Unknown simethicone (From Mylanta) Allergy (Verified 05/01/25 13:01) Hives sulfamethoxazole (From Bactrim) Allergy (Verified 05/01/25 13:01) Hives trimethoprim (From Bactrim) Allergy (Verified 05/01/25 13:01) Hives Medication List - Last Reconciled 05/01/25 by Kala López MD albuterol sulfate 90 mcg/actuation (Ventolin HFA) 2 puffs inhalation Q6H PRN ascorbic acid (vitamin C) mg PO TID azelastine intranasal azithromycin For 250 mg dose pack: take 500 mg today (day 1), then 250 mg for 4 days (days 2-5) PO baclofen 20 mg PO DAILY budesonide-formoterol 80-4.5 mcg/actuation (Symbicort) 1 inh inhalation BID PRN cetirizine (Zyrtec) 10 mg PO BID cholecalciferol (vitamin D3) 25 mcg PO QID desoximetasone 0.25% 1 appl topical DAILY PRN diphenoxylate-atropine 2.5-0.025 mg 1 tab PO QID PRN duloxetine 60 mg PO DAILY duloxetine 20 mg PO BID epinephrine 1 mg IM DAILY fluticasone propionate 50 mcg/actuation sprays intranasal DAILY folic acid 2 mg PO DAILY furosemide 20 mg PO DAILY galcanezumab-gnlm (Emgality Pen) mg subcut hydrocortisone-acetic acid 1-2 % 4 drps otic (ear) right TID ipratropium bromide 2 sprays intranasal BID abgisv-uxojtguy-goeejot (pork) 24,000-76,000 -120,000 unit (Creon) 2 caps PO QID magnesium citrate,mag oxide mg PO BID meclizine 25 mg PO QID mecobalamin (vitamin B12) 1,000 mcg PO DAILY multivitamin with minerals 10 mL PO BID omeprazole 20 mg PO BID oxazepam 30 mg PO BID potassium chloride ER mEq PO PRN prednisone 20 mg PO QAM sucralfate 10 mL PO QID thiamine HCl (vitamin B1) 100 mg PO DAILY timolol maleate 0.5% drps ophthalmic (eye) DAILY ubrogepant (Ubrelvy) mg PO vitamin A acetate mcg PO BID vitamin E mixed units PO BID zinc sulfate 25 mg PO DAILY Tobacco use date assessed: 03/18/25 Dental Screening Dental Screen Date: 03/18/25 HPI HPI Comments History of Present Illness Details The patient is a 54 year old female presenting for evaluation of persistent lower extremity edema, shortness of breath, cough, and ear and throat pain. Went to urgent care was prescribed zpack, prednisone and ear drops but was waiting on her pharmacy to fill it. Lower Extremity Edema and Lymphedema: The patient has a history of lymphedema and presented with lower extremity edema that had not been improving for over two weeks, causing her clothing to feel tight and her legs and feet to hurt. Her prescribed Lasix regimen had been changed from three times a week to once daily. Due to the persistent swelling, she independently increased her Lasix dose to twice a day for the past two days, which she reports has reduced the swelling. She also reports associated pain, redness, and swelling in her toe has subsided. She has an upcoming appointment for her lymphedema in June at [facility] which was rescheduled from April. Asthma/Respiratory Symptoms: The patient reports shortness of breath on exertion and a deep cough productive of yellow sputum, which is exacerbated by laughing. Her dyspnea has improved since taking a steroid. She was seen by a electrical controls engineer for a prior viral illness and was instructed to use her steroid inhaler every hour with two puffs. She also notes abdominal pain, which she believes is from coughing. A COVID-19 test performed yesterday was negative. Otalgia and Pharyngitis: The patient has been experiencing persistent ear pain and a sore throat. She reports tenderness under her jaw near her ear, which prompted her to seek evaluation. [facility] Medical History (Updated 05/01/25 @ 13:57 by Kala López MD) Right leg swelling Shortness of breath Leg swelling Bilateral leg edema CKD (chronic kidney disease) Anxiety Fibromyalgia Anemia GERD (gastroesophageal reflux disease) Cervical radiculopathy Depression Asthma Migraines Lymphedema Surgical History History of carpal tunnel surgery of left wrist History of repair of hiatal hernia H/O laparoscopy Gastric bypass status for obesity H/O hernia repair History of colonoscopy (~07/07/15) Family History Other Atrial fibrillation Social History Housing: Apartment Patient Tobacco Use Status: Never used Tobacco e-Cigarette/Vaping Use: Never Used service: No Current occupational status: disabled Questionnaire AUDIT C Alcohol Use Questionnaire (AUDIT-C) 1. How often do you have a drink containing alcohol?: Never 3. How often do you have six or more drinks on one occasion?: Never Total Score: 0 Review of Systems Narrative Review of Systems - Constitutional: Reports weight gain. - HEENT: Reports sore throat and ear pain. - Respiratory: Reports a deep cough productive of yellow sputum and dyspnea on exertion, which has improved. - GI: Reports abdominal pain - Extremities: Reports bilateral lower extremity swelling that was severe but has improved. Physical exam (Primary Care) Vital Signs: Last Vital Signs Temp 97.1 F 05/01/25 13:02 Pulse 78 05/01/25 13:02 Resp 16 05/01/25 13:02 BP 120/84 05/01/25 13:02 Pulse Ox 96 05/01/25 13:02 Oxygen Delivery Method Room Air 05/01/25 13:02 BMI result Body Mass Index 39.7 Tobacco/Smoking Status: Tobacco use Status Tobacco use date assessed 03/18/25 05/01/25 13:13 Patient Tobacco Use Status Never used Tobacco 05/01/25 13:13 e-Cigarette/Vaping Use Never Used 05/01/25 13:13 Narrative Physical Exam - HEENT: Left tympanic membrane clear. Right tympanic membrane with a small amount of non-occlusive cerumen. Oropharynx non-erythematous. - Neck: Tenderness to palpation in the submandibular region without lymphadenopathy. - Cardiovascular: Regular heart sounds. - Respiratory: Coarse lung sounds on auscultation bilaterally. - Abdomen: soft, mild tenderness to palpation in epigastric region, non-distended - Extremities: Observation of lower extremities reveals reduced edema in both legs , however more pronounced in right compared to left. Coding Level of Care Code Est Pt Level 4 (47459) Add On Problem Visit Only Diagnoses Mild persistent asthma without complication J45.30 Asthma severity: mild Asthma persistence: persistent Asthma complication type: uncomplicated Lymphedema I89.0 Bilateral leg edema R60.0 Assessment & Plan Assessment & Plan (1) Asthma: Code(s): J45.909 - Unspecified asthma, uncomplicated Category: Medical Qualifiers: Asthma severity: mild Asthma persistence: persistent Asthma complication type: uncomplicated Qualified Code(s): J45.30 - Mild persistent asthma, uncomplicated (2) Lymphedema: Code(s): I89.0 - Lymphedema, not elsewhere classified Category: Medical (3) Bilateral leg edema: Code(s): R60.0 - Localized edema Category: Medical Plan Assessment and Plan 1. Asthma exacerbation - The patient presents with a productive cough, shortness of breath, and coarse lung sounds with a negative COVID test. - The plan includes a chest X-ray today to check for pneumonia, along with prescriptions for prednisone and antibiotics. - She will continue her steroid inhaler as directed by her electrical controls engineer. 2. Lower Extremity Edema/Lymphedema - The patient self-escalated her Lasix dose with improvement in her long-standing edema. - Due to right-sided symptoms being more pronounced, a lower extremity ultrasound will be ordered to rule out DVT. - Labs, including electrolytes, will be checked today to monitor for hypokalemia from increased diuretic use. - She will follow up with her lymphedema appointment in June. 3. Otalgia and Pharyngitis - The patient reports ear and throat pain. - Exam is largely unremarkable. - These symptoms are likely viral or allergy-related. 4. Abdominal discomfort - if persistent she will follow up with her GI at [facility] since she has had numerous procedures. Plan - Labs to be drawn today to check electrolytes, particularly potassium. - Chest x-ray to be performed today. - An ultrasound of the leg will be ordered for evaluation of asymmetric swelling and will be scheduled for early next week. - Take prednisone and antibiotics. - Patient to continue nebulizer/inhaler regimen as recommended by her electrical controls engineer. - Educated patient on need to call before adjusting diuretic dose in the future. Patient Instructions - Go to the main hospital entrance today to have a chest x-ray and get your blood drawn for labs. - Continue using your inhaler treatments as recommended by your lung specialist. - Take the newly prescribed prednisone and antibiotics as directed. Orders: Orders Basic Metabolic Panel Today M79.89 - Other specified soft tissue disorders Magnesium Today M79.89 - Other specified soft tissue disorders XR chest 2V Today R06.02 - Shortness of breath US venous duplex LE RT Today M79.89 - Other specified soft tissue disorders
[2025-05-01 13:02] VITALS: BP 120/84; PULSE 78; RESP 16; TEMP 36.2; O2SAT 96; BMI 39.7
--- OUTSIDE RECORDS SUMMARY | 2025-05-01 14:32 | XMS_ITS | Clinical Summary ---
Author Organization [address] [facility] Address [address] [place] [address] Phone Care Team Providers Care Flare Worker Name Role Phone Kala López MD Primary Care Provider [phone]- [phone] Allergies Active Allergy Reactions Criticality Noted Date [...] Description 04/29/2025 9:20 AM EST Procedure visit [address] [phone] Christine Escobar MD Migraine without aura and without status migrainosus, not intractable (Primary Dx) 03/20/2025 3:00 PM EST Office Visit [address] [phone] Rain Dyer PA Migraine without aura and without status migrainosus, not intractable (Primary Dx) 02/25/[address] [address] Christine Escobar MD 02/11/2025 10:00 AM EDT Procedure visit [facility] [address] [facility] [address] [place] [phone] Christine Escobar MD Migraine without aura and [...] disease) DX:GERD (gastroesophageal reflux disease) Asthma DX:Asthma 'Myhjp-kss-ryfeo' wit h signs of malnutrition DX:'Rotpx-mbe-rbklv' with signs of malnutrition Osteoarthritis DX:Osteoarthriti s [...] Description 06/19/2025 9:00 AM EST Office Visit [facility] [address] [facility] [address] [place] [address] Rain Dyer PA [address] [place] [address] 07/29/2025 10:00 AM EDT Procedure visit [facility] [address] [phone] Christine Escobar MD [address] [place], [place] [id number] Health Maintenance Due Date Last Done Comments [...] LAB CHEMISTRY METHOD 01/22/2025 2:48 PM EDT [facility] Potassium 4.1 3.5 - 5.5 mmol/L LAB CHEMISTRY METHOD 01/22/2025 2:48 PM EDT [facility] Chloride 104 96 - 110 mmol/L LAB CHEMISTRY METHOD 01/22/2025 2:48 PM EDT [facility] CO2 32 21 - 32 mmol/L LAB CHEMISTRY METHOD 01/22/2025 2:48 PM EDT [facility] Anion Gap 4 3 - 11 LAB CHEMISTRY METHOD 01/22/2025 2:48 PM EDT [facility] Glucose 86 70 - 100 mg/dL LAB CHEMISTRY METHOD 01/22/2025 2:48 PM T [facility] BUN 22 5 - 25 mg/dL LAB CHEMISTRY METHOD 01/22/2025 2:48 PM EDT [facility] Creatinine 0.70 0.50 - 1.10 mg/dL LAB CHEMISTRY METHOD 01/22/2025 2:48 PM EDT [facility] eGFR 102 >=60 mL/min/1. 73m2 LAB CHEMISTRY METHOD 01/22/2025 2:48 PM EDT [facility] Comment:Calculation based on the Chronic Kidney Disease Epidemiology Collaboration (CKD-EPI) equation refit without adjustment for race. BUN/Creatinine Ratio 31.4 LAB CHEMISTRY METHOD 01/22/2025 2:48 PM EDT [facility] Albumin 3.8 3.2 - 5.0 g/dL LAB CHEMISTRY METHOD 01/22/2025 2:48 PM T [facility] Calcium 9.2 8.5 - 10.5 mg/dL LAB CHEMISTRY METHOD 01/22/2025 2:48 PM [facility] Phosphorus 4.1 2.5 - 4.5 mg/dL LAB CHEMISTRY METHOD 01/22/2025 2:48 PM T [facility] Blood Venous blood specimen / Unknown Venipuncture / Unknown 01/22/2025 10:59 AM EDT 01/22/2025 11:45 AM EDT us Selvin Arce MD LAB BLOOD ORDERABLES Final Res ult [facility] [address] [place] [address], from Last 3 Months or Most Recently Relevant to Health Maintenance Insurance MEDICARE [place]ICAID [place] Care Teams Flare Worker Relationship Specialty Start Date End Date Kala López MD [address] [place] [address] PCP - General 11/04/16
--- OUTSIDE RECORDS SUMMARY | 2025-05-01 14:33 | XMS_ITS | Clinical Summary ---
Author Organization [facility] Prior to 10/11/24 Address [address] [place] [address] Care Team Providers Care Ui Lead Developer Name Role Phone Kala López MD Primary Care Provider +1- [phone] Allergies Active Allergy Reactions Criticality Noted Date [...] 4 (four) times a day. 0 Active Asqaxzw-Iweaebahe-Bcg munson D (CALCIUM 500 PO) Take by [...] as needed. 0 Active vitamin A capsule 40870 units Take 10,000 Units by mouth 2 [...] age to complete this topic Care Teams Ui Lead Developer Relationship Specialty Start Date End Date Kala López MD [address] [place] [address] PCP - General Internal Medicine 11/04/16
--- OUTSIDE RECORDS SUMMARY | 2025-05-01 14:33 | XMS_ITS | Clinical Summary ---
Author Organization [facility] Address [address] [place] [phone] Phone Care Team Providers Care Envelope Maker Name Role Phone Kala López MD Primary Care Provider +1- [phone] Allergies Active Allergy Reactions Criticality Noted Date [...] & Mag Hydroxide-Simeth Other (see comments) 08/14/2022 Cgr-Tmyye-Xzof-Lidocaine 01/18/2016 Neomycin-Bacitracin Zn-Polymyx Other (see comments) 08/14/2022 [...] MG tablet Take 1,000 mg by mouth 023 Active Ventolin HFA 108 (90 Base) MCG/ACT inhaler 023 Active Ascorbic Acid 500 MG chewable tablet Chew 500 mg 2 (two) times a day Active betamethasone valerate (VALISONE) 0.1 % cream 023 Active Symbicort 80-4.5 MCG/ACT inhaler 023 Active CALCIUM CITRATE PO Take by mouth 018 Active cetirizine (ZyrTEC ALLERGY) 10 MG tablet Take 10 mg by mouth 018 Active cholecalcifero l (VITAMIN D-3) 25 MCG (1000 UT) tablet Take 1,000 Units by mouth Active Biotin 10 MG capsule Take 1 capsule by mouth 1 (one) time each day Active cyanocobalamin (VITAMIN B-12) 1000 MCG/ML injection by Other route 023 Active DULoxetine (CYMBALTA) [address] capsule 023 Active EPINEPHrine (EpiPen 2-Juan C) 0.3 MG/0.3ML injection syringe See Instructions, Intramuscular Once, # 1 each, 1 Refills, Soft Stop, 01/13/21 22:15:00 EDT, [facility], Partial fill upon patient request if the prescription is for a schedule II opioid drug., 162.56, cm, 01/13/21 8:16:00 EDT, Height, 94.2, k... 021 Active fluticasone (FLONASE) 50 MCG/ACT nasal spray 023 Active folic acid (FOLVITE) 1 MG tablet Take 1 tablet by mouth 022 Active ipratropium-al buterol (DUO-NEB) 0.5-2.5 mg/3 mL nebulizer solution Inhale 021 Active ketotifen (ZADITOR) 0.025 % ophthalmic solution 0 Refills, Maintenance, 10/12/20 8:13:00 EDT, Partial fill upon patient request if the prescription is for a schedule II opioid drug. 021 Active azelastine (ASTELIN) 0.1 % nasal spray 023 Active magnesium oxide 250 MG tablet Take 250 mg by mouth 022 Active meclizine (ANTIVERT) 25 MG tablet 023 Active naloxone (NARCAN) 0.4 MG/ML injection Infuse 0.4 mg into a venous catheter Active Nutritional Supplements (Ensure High Protein) liquid Take by mouth 3 times a day Active Creon 48117-77527 units capsule 023 Active thiamine (VITAMIN B-1) 100 MG tablet Take 100 mg by mouth in the morning and 100 mg in the evening. Active timolol (BLOCADREN) 10 MG tablet Take 1 tablet by mouth 1 (one) time each day Active topiramate (TOPAMAX) 25 MG tablet 25 mg 1 (one) time each day 023 Active Vitamin A 2400 MCG (8000 UT) capsule Take 1 capsule by mouth 2 (two) times a day Active alpha tocopherol (VITAMIN E) 400 units capsule Take 400 Units by mouth Active diphenoxylate- atropine (LOMOTIL) 2.5-0.025 MG per tablet 024 Active ipratropium (ATROVENT) 0.03 % nasal spray Active omeprazole (PriLOSEC) [address] capsule 024 Active Multiple Vitamins-[place] als (Hair Skin and Nails Formula) tablet Take by mouth Active Galcanezumab-g nlm (Emgality) 120 MG/ML solution auto-injector Inject under the skin See administration instructions Every 4 weeks Active furosemide (LASIX) 20 MG tablet Take 1 tablet (20 mg total) by mouth 1 (one) time each day 90 tablet 3 025 2025 Active DULoxetine (CYMBALTA) [address] capsule Take by mouth 023 Active Galcanezumab-g nlm (EMGALITY SC) 120 mg 024 Active Zoledronic Acid (RECLAST IV) Infuse 5 mg into a venous catheter Active Ubrelvy 50 MG tablet Take 50 mg by mouth Active tiZANidine (ZANAFLEX) 2 MG tablet 1 po bid Active sucralfate (CARAFATE) 1 g tablet Active potassium chloride (KLOR-CON M20) 20 MEQ CR tablet TAKE TWO TABLETS BY MOUTH IN THE MORNING AND TAKE TWO TABLETS AT NOON AND TAKE TWO TABLETS IN THE EVENING. DO ALL THIS FOR 3 DAYS. DO NOT CRUSH OR CHEW (VIAL) 18 tablet 3 025 Active potassium chloride (KLOR-CON M20) 20 MEQ CR tablet Take 2 tablets (40 mEq total) by mouth in the morning and 2 tablets (40 mEq total) at noon and 2 tablets (40 mEq total) in the evening. Do all this for 3 days. Do not crush or chew. 18 tablet 3 025 2024 Discontinued Active Problems Problem Noted Date Diagnosed Date [...] hernia repair by Cameron Castaneda MD at [facility] 09/2001 vertical gastric bypass by James Royal MD at [facility] Hearing loss 08/14/2022 Decreased reflex 08/14/2022 [...] periumbilical hernia, by Cameron Castaneda M.D. 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 Treated with reduction of small bowel, reverse intussusception and jejunojenopexy by Jack Barron MD at [facility] Encounters Date Type Department Care Team Description 04/13/2025 Refill [facility] [address] [place] [phone] Selvin Arce MD from Last 3 Months [...] Office Visit [facility] [address] [phone] Selvin Arce MD [address] [address] Health Maintenance Due Date Last Done Comments [...] 02/11/2015, 02/11/2015, Additional history exists Insurance Medicaid [place] Care Teams Envelope Maker Relationship Specialty Start Date End Date Kala López MD [address], [place] PCP - General 05/24/20
--- OUTSIDE RECORDS SUMMARY | 2025-05-01 14:33 | XMS_ITS | Patient Health Record ---
Author Organization [facility] Address [address] [place] [address] Care Team Providers Care Quality Engineer Name Role Phone Chey DAY, Brooke Alvarez Primary Care Provider Maximo Mackenzie Unavailable [phone] Allergies Allergen (clinical drug ingredient) Drug/Non Drug [...] Status W/U Status Risk Notes Problem Edema (47418543) Edema (782.3) Active confirmed Problem Ingrowing nail (127557213) Ingrowing Nail (703.0) Active confirmed Problem Onychomycosis (050050327) Onychomycosis (110.1) Active confirmed Problem Pain in limb (00803189) Pain in Limb (729.5) Active confirmed Plan Of Treatment Pending Test Test Name Order Date [id number] NAIL, 6 OR MORE 03/13/2012 [id number] NAIL, 6 OR MORE 06/10/2012 [id number] Plate 06/10/2012 Insurance Providers Payer Name Payer Address Payer Phone Subscriber Number Group Number Insured Name Patient Relationship to Insured Coverage Start Date Coverage End Date Medicare [employer] [address] [place] [phone] [id number] Honey Quispe Self - patient is the [...]
== END 2025-05-01 14:06 | disposition home or self-care (01) ==
LOC: HO.HMCHD 12:43
PROVIDERS: PCP Internal Medicine; Visit Provider Internal Medicine
DX: J45.30 Mild persistent asthma, uncomplicated (principal); I89.0 Lymphedema, not elsewhere classified; R60.0 Localized edema

== ENCOUNTER → 2025-05-01 14:29 | Outpatient (BNV) | payer MEDICARE, MEDICAID, SELFPAY | PROVIDERS: PCP Internal Medicine; Visit Provider Radiology Diagnostic Radiology | DX: R06.02 Shortness of breath (principal) | CPT/HCPCS: 71046 ==

== ENCOUNTER 2025-05-04 12:39 | Outpatient (REF) | payer MEDICARE, MEDICAID, SELFPAY ==
--- OUTSIDE RECORDS SUMMARY | 2025-04-29 09:20 | XMS_ITS | Encounter Summary ---
[facility] [address] [place] [address] Care Team Providers Care Otr Owner Operator Name Role Phone Kala López MD Primary Care Provider [phone]- [phone] Reason for Visit * Clinic-Administered Medication (Routine) - Authorized Specialty Diagnoses / Procedures Referred By Contac t Referred To Contact Neurology Diagnoses Chronic migraine without aura without status migrainosus, not intractable Christine Escobar MD [address] [place] [address] Phone: tel: fax: Christine Escobar MD Phone: tel: fax: Referral ID Status Reason Start Date Expiration Date Visits Requested Visits Authorized [id number] Authorized Specialty Services Required 01/21/2025 01/21/2026 5 4 Encounter Details Date Type Department Care Team (Latest Contact Info) Description 04/29/2025 9:20 AM EST Procedure visit [facility] [address] [facility] [address] [place] [address] Christine Escobar MD [address] [place] [address] Migraine without aura and without status migrainosus, not intractable (Primary Dx) Social History Tobacco Use Types Packs/Day Years [...] as of this encounter Progress Notes * Christine Escobar MD - 04/29/2025 9:20 AM EST The patient reports no side effect with the use of Botox. The patient reports improvement in headaches by at least 50 % since last injection. At baselines the patient had 15 days out of 30 days of headaches and after botox there are 5 days of headaches per month in average. The patient would like to proceed. BOTULINUM TOXIN INJECTION PROCEDURE NOTE DATE: 04/29/2025 INDICATION(S): Chronic Migraine Complications of the botulinum toxin injection were explained to the patient and patient signed a written consent form. It was explained to the patient that botulinum toxin effects may not be felt for about 2 weeks. Side effects may include injection site pain, injection site swelling, bruising, infection, flu- like symptoms, diplopia, dysphagia, neck weakness. Skin was prepped with alcohol pads. 200 units of Botox (botulinum toxin type A) was dissolved in 4 ml of sterile normal saline solution. Lot Number:see MAR Patient had injection of the following with a 30G needle attached to a 1 ml insulin syringe: MUSCLES L side (sites) R side (sites) Electric Engine Mechanic 5 units (1) 5 units (1) Procerus 5 units (central) Frontalis 10 units (2) 10 units (2) Temporalis 20 units (4) 20 units (4) Occipitalis 15 units (3) 15 units (3) Cervical Paraspinal 10 units (2) 10 units (2) Trapezius 15 units (3) 15 units (3) Total injected: 155 units Total Wasted: 45 units Injection sites were watched closely to confirm hemostasis. No complications were observed with today's procedure.The patient tolerated the procedure well. Information hand out was provided to the patient. I asked the patient to call me with any problems. Patient was instructed not to massage or use heat over the injected site for 24 hours. I asked the patient to call me with any issues and to follow up with me for repeat injection in 3 months. documented in this encounter Plan of Treatment Upcoming Encounters Date Type Department Care Team (Late st Contact Info) Description 06/19/2025 9:00 AM EST Office Visit [address] [phone] Rain Dyer PA [address] [place] [address] 07/29/2025 10:00 AM EDT Procedure visit [address] [phone] Christine Escobar MD [address] [place] [address] documented as of this encounter Visit Diagnoses Diagnosis Migraine without aura and without status migrainosus, not intractable- Primary documented in this encounter Administered Medications Inactive Administered Medications - up to 3 most recent administrations Medication Order MAR Action Action Date Dose Rate Site onabotulinumtoxinA (BOTOX) 200 unit injection 200 Units 200 Units, intramuscular, Once, On Sun04/29/25 at 1000, For 1 doseIndications:Migraine without aura and without status migrainosus, not intractable Given 04/29/2025 9:42 AM EST 155 Units Other documented in this encounter Orders Medications Ordered That Cornelius ht Not Have Been Administered Count Last Ordered Date First Ordered Date onabotulinumtoxinA (BOTOX) 2 00 unit injection 200 Units 1 04/29/2025 documented in this encounter Care Teams Otr Owner Operator Relationship Specialty Start Date End Date Kala López MD [address] [place] [address] PCP - General 11/04/16 documented as of this encounter
--- NOTE | ~2025-05-04 | US_ITS ---
EXAMINATION: US TRIPLEX LOWER EXTREMITY, RIGHT CLINICAL INFORMATION: Right lower extremity pain, prior history of IVC filter placement, chronic kidney disease COMPARISON: None available. TECHNIQUE: Color-flow triplex imaging with spectral analysis and compression Doppler were performed on the right lower extremity. FINDINGS: Respiratory variation, normal compression and augmented flow are noted throughout the right lower extremity. The visualized common femoral vein, superficial femoral vein, profunda femoral vein, popliteal vein and midcalf peroneal and posterior tibial venous segments show no evidence of deep venous thrombosis. Short linear echogenic material is present in the cephalad portion of the great saphenous vein near the saphenofemoral junction. US/US venous duplex LE RT IMPRESSION: No evidence of deep venous thrombosis involving the right lower extremity. Minimal chronic superficial venous thrombus within the proximal great saphenous vein near saphenofemoral Junction. Electronically signed by: Myron Bajwa MD 05/04/2025 01:31 PM [facility]
--- OUTSIDE RECORDS SUMMARY | 2025-05-04 15:46 | XMS_ITS | Clinical Summary ---
Author Organization Farida Polanco [facility] Address [address] [place] [address] Care Team Providers Care Plastic Surgery Technician Name Role Phone Kala López MD Primary Care Provider +1- [phone] Allergies Active Allergy Reactions Criticality Noted Date Comments Aspirin Other (See Comments) 04/27/2011 Clonazepam Other (See Comments) 04/27/2011 Duloxetine Other (See Comments) 04/27/2011 Ibuprofen Other (See Comments) 04/27/2011 Iron Dextran Complex Other (See Comments) 04/27 Lamotrigine Other (See Comments) 04/27/2011 Latex Other (See Comments) 04/27/2011 Lidocaine Hcl Other (See Comments) 04/27/2011 Montelukast Other (See Comments) 04/27/2011 Nortriptyline Other (See Comments) 04/27/2011 Other Other (See Comments) 04/27/2011 Heparins. Other Other (See Comments) 04/27/2011 Anbesol. Other Other (See Comments) 04/27/2011 Scopolamine HBr. Other Other (See Comments) 04/27/2011 Latex Exam Gloves. Oxycodone-Acetaminophen Other (See Comments) Penicillins Other (See Comments) 04/27/2011 Pregabalin Other (See Comments) 04/27/2011 Rofecoxib Other (See Comments) 04/27/2011 Sulfamethoxazole-Trimeth oprim Other (See Comments) 04/27/2011 Medications FLONASE 50 mcg/actuation nasal spray 04/27/2011 Active FLOVENT HFA 44 mcg/actuation inhaler 04/27/2011 Active meclizine (ANTIVERT) 25 mg tablet 04/27/2011 Active omeprazole (PriLOSEC) 20 MG capsule 04/27/2011 Active LASIX 20 mg tablet 04/27/2011 Active docusate sodium (COLACE) 100 MG capsule 04/27/2011 Active MULTIPLE VITAMIN tablet 04/27/2011 Active ALAVERT 10 mg tablet 04/27/2011 Active Text: Ventolin HFA AERS 04/27/2011 Active Text: Proferrin-Forte TABS 04/27/2011 Active Text: EpiPen BRETT 04/27/2011 A ctive Text: Magnesium Oxide TABS 04/27/2011 Active Text: Viactiv CHEW 04/27/2011 Active Text: Spironolactone TABS 04/27/2011 Active Text: Morphine Sulfate TABS 04/27/2011 Active Text: Tylenol TABS 04/27/2011 Active Text: Ketotifen Fumarate SOLN 04/27/2011 Activ e Text: Vitamin A TABS 04/27/2011 Active Text: Vitamin C TABS 04/27/2011 Active Text: Vitamin D3 TABS 04/27/2011 Active Text: Vitamin E 400 UNIT Oral Capsule 04/27/2011 A ctive Text: Vitamin B Complex TABS 04/27/2011 Active Text: Tums CHEW 04/27/2011 Act vero Text: Refresh SOLN 04/27/2011 Active Active Problems Problem Noted Date Diagnosed Date Abdominal pain 04/27/2011 Overview (07/13/2014): Abdominal Pain Social History Tobacco Use Types Packs/Day Years Used Date Smoking Tobacco: Never Assessed Comments Unknown Sex and Gender Information Value Date Recorded Sex Assigned at Female 03/17/2025 12:06 PM EST Legal Sex Female 3:54 AM EST Gender Identity Female 03/17/2025 12:06 PM EST Sexual Orientation Not on file Plan of Treatment Upcoming Encounters Date Type Department Care Team (Late st Contact Info) Description 07/06/2025 10:30 AM EST Office Visit [facility] [address] [facility]rd [place] [address] Belia Chambers NP [address] [place] [address] In Person with Nurse Practitioner Insurance MEDICARE Advance Directives Documents on File Type Date Recorded Patient [employer] Expl anation Health Care Proxy 11/21/2006 12:00 AM [facility] Proxy Care Teams Plastic Surgery Technician Relationship Specialty Start Date End Date Kala López MD [address] [place] [address] PCP - General 03/17/25
--- OUTSIDE RECORDS SUMMARY | 2025-05-04 15:46 | XMS_ITS | Encounter Summary ---
Author Organization Farida Polanco [facility] Address [address] [place] [address] Care Team Providers Care Field Crop Ii Farmworker Name Role Phone Kala López MD Primary Care Provider +1- [phone] Encounter Details Date Type Department Care Team (Late st Contact Info) Description 04/27/2011 Clinical Conversion Encounter [facility] Surgery [address] [place] [address] Najma Gordon MD [address] [place] [address] Social History Tobacco Use Types Packs/Day Years Used Date Smoking Tobacco: Never Assessed Comments Unknown Sex and Gender Information Value Date Recorded Sex Assigned at Female 03/17/2025 12:06 PM EST Legal Sex Female 3:54 AM EST Gender Identity Female 03/17/2025 12:06 PM EST Sexual Orientation Not on file documented as of this encounter Progress Notes * Najma Gordon MD - 06/06/2014 3:59 PM EST [id number] SERNA [place], [place]. 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 She has had persistent problems with abdominal pain. She says this is a new abdominal pain in the left upper quadrant rather than the left lower quadrant and she feels that my surgery has been successful. She was reoperated on in [place] for exploratory surgery and was found to have an incisional hernia of her midline incision that was fixed primarily without mesh. She continues to have pain. This can last for hours or days. So the left upper quadrant. She cannot eat solid food she drinks mostly soups and soft food. She was sent to a specialist that referred her back to her original surgeon and me for further evaluation of this abdominal pain. None of the outside records are available for review today Active Problems Accordingly to the patient, she has been hospitalized at this abdominal pain several times has had the imaging of the abdomen including CT scans which have been unremarkable except for a question of a bowel obstruction at one point. This is what t the exploratory surgery at the outside hospital. Adhesions were lysed and a small incisional hernia was fixed. Patient continues to have similar symptoms Past Medical History See above Current Meds Alavert 10 MG Oral Tablet; Therapy: (Recorded:24Hws9550) to Docusate Sodium 100 MG Oral Capsule; Therapy: (Recorded:96Vpy7988) to EpiPen BRETT; Therapy: (Recorded:94Jig7453) to Flonase 50 MCG/ACT Nasal Suspension; Therapy: (Recorded:09Esv8632) to Flovent HFA AERO; Therapy: (Recorded:34Hpy1686) to Ketotifen Fumarate SOLN; Therapy: (Recorded:95Wod9720) to Lasix 20 MG Oral Tablet; Therapy: (Recorded:76Mzf8202) to Magnesium Oxide TABS; Therapy: (Recorded:47Mls3306) to Meclizine HCl 25 MG Oral Tablet; Therapy: (Recorded:32Gsv6416) to Morphine Sulfate TABS; Therapy: (Recorded:43Lyr0610) to Multiple Vitamin TABS; Therapy: (Recorded:56Hle5611) to Omeprazole 20 MG Oral Capsule Delayed Release; Therapy: (Recorded:86Siw9772) to Proferrin-Forte TABS; Therapy: (Recorded:32Ium3051) to Refresh SOLN; Therapy: (Recorded:75Feu5441) to Spironolactone TABS; Therapy: (Recorded:65Qyp2983) to Tums CHEW; Therapy: (Recorded:88Aki0428) to Tylenol TABS; Therapy: (Recorded:92Wux4498) to Ventolin HFA AERS; Therapy: (Recorded:79Ify8382) to Viactiv CHEW; Therapy: (Recorded:14Jey3388) to Vitamin A TABS; Therapy: (Recorded:61Brd8765) to Vitamin B Complex TABS; Therapy: (Recorded:12Hzi6621) to Vitamin C TABS; Therapy: (Recorded:93Hka8628) to Vitamin D3 TABS; Therapy: (Recorded:21Oia3518) to Vitamin E 400 UNIT Oral Capsule; Therapy: (Recorded:32Djc2794) to Allergies Anbesol GEL Aspirin TABS Bactrim TABS Cymbalta CPEP Heparins Iron Dextran SOLN KlonoPIN TABS LaMICtal TABS Latex Exam Gloves Miscellaneous Lidocaine HCl (PF) SOLN Lyrica CAPS Motrin TABS Nortriptyline HCl CAPS Penicillins Percocet TABS Scopolamine HBr KERRI Singulair TABS Vioxx TABS Latex Results/Data As I said no imaging is available today Physical Exam I examined the patient carefully laying down and standing with multiple Valsalva maneuvers. It was not able to reproduce any evidence of the incisional hernia. Her abdomen is soft she has no peritoneal signs she is poorly localized to tenderness in her abdomen Assessment No evidence of incisional hernia. Question etiology of her abdominal pain and dysphagia. The patient requires a workup for this that is difficult because she lives 2 hours away. I am also uncertain as to the degree of the workup that she has had to this point My recommendations would be for her to have an upper endoscopy to evaluate her for stricture scar tissue or marginal ulcer and or gastric gastric fistula. Then I would proceed with an upper she GI small bowel follow-through to evaluate for areas of stenosis or obstruction. If both of these tests are unrevealing I would manage her conservatively and only operate for definite findings of a non-resolving small bowel obstruction Plan Followup as needed 30 minutes was spent with the patient with the greater than 50% in counseling and coordination of care Signatures Electronically signed by : NAJMA GORDON MD; Apr 27 2011 11:14AM documented in this encounter Plan of Treatment Upcoming Encounters Date Type Department Care Team (Late st Contact Info) Description 07/06/2025 10:30 AM EST Office Visit [facility] [address] [place] [address] Belia Chambers, [place] [address] [place] [address] In Person with Nurse Practitioner documented as of this encounter Visit Diagnoses Not on filedocumented in this encounter Care Teams Field Crop Ii Farmworker Relationship Specialty Start Date End Date Kala López MD [facility] [place] [address] PCP - General 03/17/25 documented as of this encounter
--- OUTSIDE RECORDS SUMMARY | 2025-05-04 15:46 | XMS_ITS | Patient Health Record ---
Author Organization [facility] Address [address] [place] [address] Care Team Providers Care Senior Research Project Manager Name Role Phone Chey DAY, Brooke Alvarez Primary Care Provider Maximo Mackenzie Unavailable [phone] Allergies Allergen (clinical drug ingredient) Drug/Non Drug [...] Status W/U Status Risk Notes Problem Edema (32371318) Edema (782.3) Active confirmed Problem Ingrowing nail (078399551) Ingrowing Nail (703.0) Active confirmed Problem Onychomycosis (925892439) Onychomycosis (110.1) Active confirmed Problem Pain in limb (10857533) Pain in Limb (729.5) Active confirmed Plan Of Treatment Pending Test Test Name Order Date [id number] NAIL, 6 OR MORE 03/13/2012 [id number] NAIL, 6 OR MORE 06/10/2012 [id number] Plate 06/10/2012 Insurance Providers Payer Name Payer Address Payer Phone Subscriber Number Group Number Insured Name Patient Relationship to Insured Coverage Start Date Coverage End Date Medicare National Govt Sv[employer] Inc [address] [place] [phone] [id number] Honey Quispe Self - patient is the [...]
--- OUTSIDE RECORDS SUMMARY | 2025-05-04 15:46 | XMS_ITS | Clinical Summary ---
Author Organization [facility] Prior to 10/11/24 Address [address] [place] [address] Care Team Providers Care Preform Plate Maker Name Role Phone Kala López MD Primary Care Provider +1- [phone] Allergies Active Allergy Reactions Criticality Noted Date [...] 4 (four) times a day. 0 Active Rxpchqv-Pkcdlxuqu-Reg munson D (CALCIUM 500 PO) Take by [...] as needed. 0 Active vitamin A capsule 39206 units Take 10,000 Units by mouth 2 [...] age to complete this topic Care Teams Preform Plate Maker Relationship Specialty Start Date End Date Kala López MD [address] [place] [address] PCP - General Internal Medicine 11/04/16
--- OUTSIDE RECORDS SUMMARY | 2025-05-04 15:46 | XMS_ITS | Continuity of Care Document ---
Author Organization [facility] [address] [facility] [address] [place] [address] Phone [phone] Care Team Providers Care Sephora Operations Consultant Name Role Phone Kala López M.D. 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 07/26/2022 Qtgmxhcbeh86xq Tablets 1 by mouth every day 90tabs Kala Branch M.D. Vitamin A3mg (85885 Ut) Capsules Unknown Folic Yxhn253joz/ML Liquid 1 ml daily Unknown Zyrtec Fveyynu55wk Tablets 1 by mouth bid Unknown Timolol Maleate0.5% Solution Corey Smart Tdjnuxm48ox Tablets Unknown Lydwnbpx811ck/ml Solution Auto-Inject Unknown 000 Hdphytxcxd3XJ/10ML Suspension Maria Victoria Juarez Ivngnpzzbc13pn Tablets DR jacques twice daily Unknown Vitamin N675ugi (1000 Ut) Capsules 4 by mouth every day 100caps Kala Branch M.D. Calcium Citrate Chewy Nkfu631-41.5mg-mcg Chewtabs 1 by mouth twice a day Kala Branch M.D. Vitamin C500mg Tablets 1 by mouth 3 times daily Unknown Zsdjbakn63vc Capsules 1 bid Unknown Cghz864(50Zn) mg Capsules 1 qd Unknown Lidocaine-Prilocaine2. 5-2.5% Cream prn Unknown Laiigomti566ix Tablets 1 by mouth twice daily Unknown Betamethasone Dipropionate0.05% Cream apply twice daily to affected area as needed Unknown Tylenol Extra Odikmmup308ij Tablets 2 by mouth twice daily as needed Unknown Duloxetine CMS46jm Caps DR Umanzor take 1 capsule by mouth twice daily Unknown Duloxetine WTA01ns Caps DR Umanzor Take 1 by mouth every day Unknown Vbzel51601-98959Sgnm Caps DR Umanzor Take 2 capsules by mouth four times daily Unknown Ventolin HCS543(90Base) mcg/Act Aerosol Use as directed every 4 to 6 hours Kala López M.D. Azelastine HCL (Nasal)0.1% Solution 1 spray to each nostril twice daily Carol Mayberry MD Fluticasone Fcqpltwcpq00its/Act Suspension Two sprays to each nostril twice daily Kala López M.D. Meclizine SYX45gn Tablets Take 1 tablet four times daily Unknown Betamethasone Valerate0.1% Cream Use daily up to four times Kala López M.D. Asdclxpkg34-5.5mcg/Act Aerosol 2 puffs twice daily Kala López [...] Interpretive Guide: See Comment: 3 Albumin 08/14/2022 [facility] Albumin 4.6 GM/DL (3.4-4.8) 25Oh Vitamin D 08/14/2022 [facility] 25Oh Vitamin D 65.3 NG/ML High (20-50) TSH 08/14/2022 [facility] TSH 1.10 uIU/mL (0.4-4.2) Calcium 08/14/2022 [facility] Calcium 9.6 mg/dL (8.6-10.5 ) PTH, Intact 08/14/2022 [facility] PTH, Intact 72 pg/mL High (15-65) TSH With Reflex To FT4 07/26/2022 [facility] TSH With Reflex To FT4 1.50 uIU/mL (0.4-4.2) PTH, Intact 07/26/2022 [facility] PTH, Intact 44 pg/mL (15-65) Calcium 07/26/2022 [facility] Calcium 9.8 mg/dL (8.6-10.5 ) 25Oh Vitamin D 07/26/2022 [facility] 25Oh Vitamin D 60.2 NG/ML High (20-50) Albumin 07/26/2022 [facility] Albumin 4.3 GM/DL (3.4-4.8) TSH 04/13/2022 [facility] TSH <pending> Calcium 04/13/2022 [facility] Calcium <pending> Albumin 04/13/2022 [facility] Albumin <pending> PTH, Intact 04/13/2022 [facility] PTH, Intact <pending> 25Oh Vitamin D 04/13/2022 [facility] 25Oh Vitamin D <pending> 1 Vitamin D deficiency has been defined by the [place] of [employer] and an Endocrine Society practice guideline as a level of serum 25-OH vitamin D less than 20 ng/mL (1,2). The Endocrine Society went on to further define vitamin D insufficiency as a level between 21 and 29 ng/mL (2). 1. IOM ([place] of [employer]). 2010. Dietary reference intakes for [...] measured NTx value is <or=38 nM BCE/mM RADIO FREQUENCY ENGINEER, or NTx has decreased >or=30% from baseline.[1] [...] measured NTx value is <or=38 nM BCE/mM RADIO FREQUENCY ENGINEER, or NTx has decreased >or=30% from baseline.[1] [...] Res.11(1):M757,1995 Procedures Date Code Description Status 07/31/2023 81302 Collection Of Venous Blood B y Venipuncture Completed 07/26/2022 24146 Collection Of Venous Blood B y Venipuncture Completed Medical Devices Description No Information Available Encounters Type Date Location Provider Dx Diagnosis Office Visit 01/09/2025 3:00p Main Office Kala Branch M.D. E04.2 Nontoxic multinodular goiter E21.3 Hyperparathyroidism, unspecified M81.0 Age-related osteopor osis w/o current pathological fracture Assessments Date Code Description Provider 01/09/2025 E04.2 Nontoxic multinodular goiter Kala Branch M.D. 01/09/2025 E21.3 Hyperparathyroidism, unspeci fied aKla Branch M.D. 01/09/2025 M81.0 Age-related oste oporosis [...]
--- OUTSIDE RECORDS SUMMARY | 2025-05-04 15:46 | XMS_ITS | Clinical Summary ---
Author Organization [facility] Address [address] [place] [address] Phone Care Team Providers Care Graining Press Operator Name Role Phone Kala López MD Primary Care Provider +1- [phone] Allergies Active Allergy Reactions Criticality Noted Date [...] Description 04/29/2025 9:20 AM EST Procedure visit [address] [phone] Christine Escobar MD Migraine without aura and without status migrainosus, not intractable (Primary Dx) 03/20/2025 3:00 PM EST Office Visit [address] [phone] Rain Dyer PA Migraine without aura and without status migrainosus, not intractable (Primary Dx) 02/25/[address] [address] Christine Escobar MD 02/11/2025 10:00 AM EDT Procedure visit [facility] [address] [facility] [address] [place] [phone] Christine Escobar MD Migraine without aura and [...] disease) DX:GERD (gastroesophageal reflux disease) Asthma DX:Asthma 'Rjphr-uft-ucbgw' wit h signs of malnutrition DX:'Pmlha-yue-anleg' with signs of malnutrition Osteoarthritis DX:Osteoarthriti s [...] Description 06/19/2025 9:00 AM EST Office Visit [facility] [address] [facility] [address] [place] [address] Rain Dyer PA [address] [place] [address] 07/29/2025 10:00 AM EDT Procedure visit [facility] [address] [address] Christine Escobar MD [address] [place], [place] [phone] Health Maintenance Due Date Last Done Comments [...] LAB CHEMISTRY METHOD 01/22/2025 2:48 PM EDT [facility] Potassium 4.1 3.5 - 5.5 mmol/L LAB CHEMISTRY METHOD 01/22/2025 2:48 PM EDT [facility] Chloride 104 96 - 110 mmol/L LAB CHEMISTRY METHOD 01/22/2025 2:48 PM EDT [facility] CO2 32 21 - 32 mmol/L LAB CHEMISTRY METHOD 01/22/2025 2:48 PM EDT [facility] Anion Gap 4 3 - 11 LAB CHEMISTRY METHOD 01/22/2025 2:48 PM EDT [facility] Glucose 86 70 - 100 mg/dL LAB CHEMISTRY METHOD 01/22/2025 2:48 PM T [facility] BUN 22 5 - 25 mg/dL LAB CHEMISTRY METHOD 01/22/2025 2:48 PM EDT [facility] Creatinine 0.70 0.50 - 1.10 mg/dL LAB CHEMISTRY METHOD 01/22/2025 2:48 PM EDT [facility] eGFR 102 >=60 mL/min/1. 73m2 LAB CHEMISTRY METHOD 01/22/2025 2:48 PM EDT [facility] Comment:Calculation based on the Chronic Kidney Disease Epidemiology Collaboration (CKD-EPI) equation refit without adjustment for race. BUN/Creatinine Ratio 31.4 LAB CHEMISTRY METHOD 01/22/2025 2:48 PM EDT [facility] Albumin 3.8 3.2 - 5.0 g/dL LAB CHEMISTRY METHOD 01/22/2025 2:48 PM T [facility] Calcium 9.2 8.5 - 10.5 mg/dL LAB CHEMISTRY METHOD 01/22/2025 2:48 PM [facility] Phosphorus 4.1 2.5 - 4.5 mg/dL LAB CHEMISTRY METHOD 01/22/2025 2:48 PM T [facility] Blood Venous blood specimen / Unknown Venipuncture / Unknown 01/22/2025 10:59 AM EDT 01/22/2025 11:45 AM EDT us Selvin Arce MD LAB BLOOD ORDERABLES Final Res ult [facility] [address] [place] [address], from Last 3 Months or Most Recently Relevant to Health Maintenance Insurance MEDICARE [place]ICAID [place] [employer] Care Teams Graining Press Operator Relationship Specialty Start Date End Date Kala López MD [address] [place] [address] PCP - General 11/04/16
--- OUTSIDE RECORDS SUMMARY | 2025-05-04 15:46 | XMS_ITS | Clinical Summary ---
Author Organization [facility] Address [address] [place] [phone] Phone Care Team Providers Care Marketing Support Coordinator Name Role Phone Kala López MD Primary Care Provider +1- [phone] Allergies Active Allergy Reactions Criticality Noted Date [...] & Mag Hydroxide-Simeth Other (see comments) 08/14/2022 Nke-Hftun-Bigq-Lidocaine 01/18/2016 Neomycin-Bacitracin Zn-Polymyx Other (see comments) 08/14/2022 [...] 1 Refills, Soft Stop, 01/13/21 22:15:00 EDT, [facility], Partial fill upon patient request [...] mouth 3 times a day Active Creon 26142-16338 units capsule 023 Active thiamine (VITAMIN B-1) [...] [address] capsule 024 Active Multiple Vitamins-[place] als (Hair Skin and Nails Formula) tablet [...] hernia repair by Cameron Castaneda MD at [facility] 09/2001 vertical gastric bypass by James Royal MD at [facility] Hearing loss 08/14/2022 Decreased reflex 08/14/2022 Inflammatory [...] periumbilical hernia, by Cameron Castaneda M.D. at [facility] Intussusception of intestine 01/16/2006 Overview (08/14/2022): presented as abdominal pain. Treated with reduction of small bowel, reverse intussusception and jejunojenopexy by Jack Barron MD at [facility] Encounters Date Type Department Care Team Description 04/13/2025 Refill [facility] [address] [place] [phone] Selvin Arce MD from Last 3 Months [...] Office Visit [facility] [address] [phone] Selvin Arce MD [address] [phone] Health Maintenance Due Date Last Done Comments [...] 02/11/2015, 02/11/2015, Additional history exists [place] Care Teams Marketing Support Coordinator Relationship Specialty Start Date End Date Kala López MD [address] [place], [place] PCP - General 05/24/20
--- OUTSIDE RECORDS SUMMARY | 2025-05-04 15:46 | XMS_ITS | Encounter Summary ---
Author Organization [facility] Address [address] [place] [address] Care Team Providers Care Welding Lead Burner Name Role Phone Kala López MD Primary Care Provider [phone] Encounter Details Date Type Department Care Team (Late st Contact Info) Description 11/21/2006 Clinical Conversion Encounter GENERAL CONVERSION [facility] [address] [place] [address] Social History Tobacco Use Types Packs/Day Years Used Date Smoking Tobacco: Never Assessed Comments Unknown Sex and Gender Information Value Date Recorded Sex Assigned at Female 03/17/2025 12:06 PM EST Legal Sex Female 3:54 AM EST Gender Identity Female 03/17/2025 12:06 PM EST Sexual Orientation Not on file documented as of this encounter Discharge Summaries * CHRISTINA Patel - 07/20/2014 3:20 PM EDT [id number] QUISPE [place], [place]. DISCHARGE SUMMARY NAME: NARDA QUISPE LC#: [id number] : 1970 ADMISSION DATE: 11/21/2006 DISCHARGE DATE: 12/07/2006 VISIT ID: [id number] DISCHARGE DATE: 12/07/2006 DISCHARGE DIAGNOSES: Status post exploratory laparotomy, resection of jejunostomy and revision, cholecystectomy with intraoperative cholangiogram and lysis of adhesions. REASON FOR ADMISSION: The patient is a 36-year-old female who came in evaluation of potential salvage status post her gastric bypass with persistent abdominal pain, nausea, and vomiting. The patient had a successful open gastric bypass in 2000, in [place], [place]. She lost significant weight and had improvement in comorbidities. 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 In January of 2006, she began complaining of abdominal pain, and this was left-sided associated with nausea and vomiting. Workup of this took a week, and she was diagnosed with introsusception on CT scan. She was taken to the operating room where she underwent a jejunopexy. After that operation, she improved for about 3 weeks partially, and again her symptoms have recurred. She underwent an extensive workup with an upper gastrointestinal small bowel followthrough, CT scan which showed some partially dilated nonspecific small bowel without any evidence of obstruction. She was taken back to the operating room where another introsusception was found. This one was smaller and again repaired with a pexy procedure. The patient did not improve after the second re-operation. Both operations were laparoscopically performed. She has been on pain medication for this pain and has been followed by the pain service. She continues to try to work. She is very discouraged and feels that she is worse off health fields now, even though she has lost all the weight, than she was before her surgery. The patient wanted to explore any potential surgical options as well as possibly reversing her bypass. Past medical history otherwise significant for sickle cell trait without any history of sickling, hypertension, history of (2:06), history of pulmonary embolus with a [place] filter in place, breast reduction, and asthma. MEDICATIONS PRIOR TO ADMISSION: Lisinopril 20 mg daily, spironolactone 50 mg b.i.d., (2:23), Zyrtec 10 mg p.o. daily, (2:26) tablets p.o. b.i.d., albuterol 4 times a day, Flovent 10 mcg 2 puffs b.i.d., Nasonex 1 spray b.i.d., multivitamin A 10,000 units p.o. b.i.d., vitamin D 400 p.o. b.i.d., vitamin E 400 international units p.o. b.i.d., and Dilaudid 4 mg p.o. 1 to 2 tablets every 4 to 6 hours as needed for pain. PAST HOSPITALIZATIONS: Include status post open bypass in 2000, revision in January 2006, and in March of 2006, without any improvement. PAST MEDICAL HISTORY: Sickle cell traits, hypertension, PE with a filter placement, reduction mammoplasty, history of asthma. ALLERGIES: Latex in which she gets a rash, aspiring, penicillin in which she gets a rash, Motrin activates her asthma, heparin, Percocet in which she gets a rash, lidocaine, Lamictal, Klonopin, and Bactrim. PHYSICAL EXAMINATION ON ADMISSION: Awake and alert in no pain. Lungs are clear. Heart is regular. Abdomen is soft and nontender. HOSPITAL COURSE: The patient discussed the surgical options with Dr. Kraft, and the patient agreed to proceed with surgery on 11/21/06. The patient underwent exploratory laparoscopy converted to an exploratory laparotomy with resection of jejunostomy and revision, cholecystectomy with intraoperative cholangiogram and lysis of adhesions. This was done under general anesthesia. The patient tolerated the procedure well and was transferred to the recovery room, extubated, in stable condition. Postoperatively, the patient remained on a continuous DICTATING MACHINE TRANSCRIBER and placed on TPN for nutritional support. Eventually, the patient started passing gas. Her diet was slowly advanced to a regular diet. She has been tolerating a regular diet for several days now. Her continuous Dilaudid DICTATING MACHINE TRANSCRIBER was slowly decreased over a few days. As of 12/07/06, the patient is tolerating Dilaudid 8 mg p.o. 5 times a day. The lungs remain clear. Her abdominal is soft and nontender. She has no lower extremity edema. Her incision is clean, dry, and intact. Her clifton will be removed prior to her discharge. The patient will plan to be discharged to home in stable condition. She was instructed to call with any fever greater than 101 degrees, any nausea, vomiting, swelling, or drainage from the incisional site. She will plan to follow up with Dr. Kraft in 2 weeks. She will resume all of her prior medications and was given a prescription for Dilaudid 4 mg tablets taking 2 tablets p.o. 5 times a day and was instructed to slowly wean this as tolerated. She was given 100 tablets. At this time, the patient has no further questions. She was instructed to call Dr. Kraft's office for any further assistance. CARA Wilson [phone] [id number] J: [id number] CC: Kala Rose MD, <Primary Care Physician> THIS DOCUMENT WAS DICTATED AND AUTHENTICATED BY CARA Wilson, ON 12/18/2006 11:02:40, AND FORWARDED TO THE ATTENDING PHYSICIAN FOR FINAL AUTHENTICATION. THIS DOCUMENT WAS ELECTRONICALLY AUTHENTICATED BY Jass Kraft MD ON 12/20/2006 17:13:09 <start header> LEYDI QUISPELINE 12/07/2006 # [id number] <end header> <start footer> DISCHARGE SUMMARY [facility] * [address] [place] [address] * [phone] Page 2 of 2 <end footer> documented in this encounter Plan of Treatment Upcoming Encounters Date Type Department Care Team (Late st Contact Info) Description 07/06/2025 10:30 AM EST Office Visit [facility] [address] [facility] [place] [address] Belia Chambers NP [address] [place] [id number] In Person with Nurse Practitioner documented as of this encounter Visit Diagnoses Not on filedocumented in this encounter Care Teams Welding Lead Burner Relationship Specialty Start Date End Date Kala López MD [id number] [place] [address] PCP - General 03/17/25 documented as of this encounter
== END 2025-05-04 12:40 | disposition home or self-care (01) ==
LOC: HO.US 12:39
PROVIDERS: PCP Internal Medicine; Visit Provider Internal Medicine
DX: M79.89 Other specified soft tissue disorders (principal)
CPT/HCPCS: 93971

== ENCOUNTER → 2025-05-04 12:40 | Outpatient (BNV) | payer MEDICARE, MEDICAID, SELFPAY | PROVIDERS: PCP Internal Medicine; Visit Provider Radiology Diagnostic Radiology | DX: M79.661 Pain in right lower leg (principal); N18.9 Chronic kidney disease, unspecified | CPT/HCPCS: 93971 ==